=== PATIENT | female | born 1990 | race African-American/Black ===

== ENCOUNTER 2018-12-29 18:31 | Inpatient (IN) | payer SELFPAY ==
[~2018-12-29] VITALS: Ht 167.6 cm; Wt 57.2 kg
[2018-12-29 18:55] VITALS: BP 118/78
--- NOTE | 2018-12-29 18:58 | NUR ---
ED Nurse Note: pt walked in to ER from home due to abdominal pain. no N/V/D at this moment but pt reported previous episode of vomiting at home with yellow bile. calm and cooperative but grimacing for pain. no acute distress noted at this time. 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 pt was able to ambulate to bathroom with steady gait to provide urine. tachcardia reported to [facility]PA.
[2018-12-29] MEDS ORDERED: Morphine Sulfate 4mg/ml Inj (IV USE ONLY) IVP ONE (19:00)
--- NOTE | 2018-12-29 19:02 | Emergency Room Report ---
History of Present Illness General Chief Complaint: Abdominal Pain Source: Patient (Alessandra Tolbert) Present Illness HPI 28-year-old female presents to the emergency department complaining of progressive abdominal pain x1 week. Patient reports lower middle abdominal pain and tenderness which over time began progressing up towards the flank area bilaterally. Patient reports multiple episodes of nausea vomiting. Patient denies fevers or chills. She denies significant past medical history. She reports some recent heavy alcohol use especially since Halloween. She denies vaginal bleeding or vaginal discharge. Patient denies dysuria she does report urinary frequency and urgency. Patient reports when she attempts to urinate she begins having exacerbation of her lower abdominal pain. Patient also reports constipation and states that her last real bowel movement was approximately 1 week ago. She denies blood in the vomit or stool she denies black tarry stools or significant NSAID use recently. She denies low back pain. No other aggravating or relieving factors at this time. (Alessandra Tolbert) Allergies: Coded Allergies: No Known Allergies (Unverified , 12/29/18) Patient History Past Medical History: see triage record Past Surgical History: none Pertinent Family History: none Social History: Reports: alcohol use Last Menstrual Period: 12/09/18 Now: No Reviewed Nursing Documentation: PMH: Agreed; PSxH: Agreed (Alessandra Tolbert) Nursing Documentation-PMH Past Medical History: No Stated History (Alessandra Tolbert) Review of Systems All Other Systems: negative except mentioned in HPI (Alessandra Tolbert) Physical Exam Vital Signs Date Time Temp Pulse Resp B/P (MAP) Pulse Ox O2 Delivery O2 Flow Rate FiO2 12/29/18 18:38 99.1 150 22 118/78 (91) 98 Room Air Sp02 EP Interpretation: reviewed, normal General Appearance: alert, GCS 15, non-toxic, moderate distress Head: normocephalic, atraumatic Eyes: bilateral eye normal inspection, bilateral eye PERRL ENT: hearing grossly normal, normal voice Neck: full range of motion Respiratory: lungs clear, normal breath sounds, speaking full sentences Cardiovascular #1: regular rate, rhythm Gastrointestinal: soft, guarding, rebound, tenderness - Generalized TTP, moderate in the RLQ. Rectal: deferred Genitourinary: normal inspection, no CVA tenderness Musculoskeletal: gait/station normal, normal range of motion, non-tender Neurologic: alert, oriented x3, responsive, motor strength/tone normal, sensory intact, speech normal, grossly normal Psychiatric: judgement/insight normal Lymphatic: no adenopathy (Alessandra Tolbert) Medical Decision Making PA Attestation Dr. Bunn is my supervising Physician whom patient management has been discussed with. (Alessandra Tolbert) PA Attestation I supervised and participated in the care of this patient along with ALEJANDRA Abarca Briefly, this is a 28-year-old female presenting for evaluation of abdominal pain. She does have moderate alcohol use in her medical history and states she was drinking several days ago. Labs are consistent with acute pancreatitis in addition to acute kidney injury secondary dehydration and hypokalemia likely from vomiting. Also appears she has a acute urinary tract infection. She continues to receive IV fluids and received Zosyn. CT scan of the abdomen consistent with pancreatitis and probable gallstones however these were not visualized on ultrasound. Her pain is improving and her vital signs are stable although she remains tachycardic. She is receiving potassium. She will be admitted to telemetry for further management of GENARO, hypokalemia, pancreatitis, urinary tract infection. (Valdo Bunn MD) Diagnostic Impression: Primary Impression: Pancreatitis Qualified Codes: K85.90 - Acute pancreatitis without necrosis or infection, unspecified Additional Impressions: Acute hypokalemia UTI (urinary tract infection) Qualified Codes: N30.00 - Acute cystitis without hematuria GENARO (acute kidney injury) ER Course 28-year-old female presents to the emergency department complaining of progressive abdominal pain x1 week. Patient reports lower middle abdominal pain and tenderness which over time began progressing up towards the flank area bilaterally. Patient reports multiple episodes of nausea vomiting. Patient denies fevers or chills. She denies significant past medical history. She reports some recent heavy alcohol use especially since . She denies vaginal bleeding or vaginal discharge. Patient denies dysuria she does report urinary frequency and urgency. Patient reports when she attempts to urinate she begins having exacerbation of her lower abdominal pain. Patient also reports constipation and states that her last real bowel movement was approximately 1 week ago. She denies blood in the vomit or stool she denies black tarry stools or significant NSAID use recently. She denies low back pain. No other aggravating or relieving factors at this time. Ddx considered but are not limited to Acute appendicitis, Diverticulitis, SBO, diarrhea, Perforation, UC, PUD, GE, pancreatitis, gallstone, ovarian torsion, ectopic , PID tubo-ovarian abscess. Vital signs: Pt. is tachycardic on arrival, remaining VS are WNL, pt. is afebrile H&PE are most consistent with Possible acute abdomen. ORDERS: -CBC: leukocytosis (16.5) - CMP: Potassium of (2.5), Cr. (1.7). BUN (19). - LIPASE: (greater than 2000) -Lactic Acid: 1.2 WNL -UA: Nitrite positive and significant elevation in inflammatory markers with moderate bacteria. -URINE HCG: Negative -Coags: WNL -ABO/Screen: Pending -CT Abd & Pelvis Non-Con: "Peripancreatic inflammatory change concerning for acute pancreatitis. Hepatic steatosis. Indeterminate 4.2 cm right adnexal cystic structure. Small amount of abdominal ascites. No free air. Probable gallstones. 5 cm nodule anterior to the spleen possible splenule. No bowel obstruction or diverticulitis." Per official radiology report- Please see report for specific details. -Abdominal US :See report below. ED INTERVENTIONS: -IV bolus NS -Morphine 4mg -Zofran 4mg IV -KCL IV -3.375gm Zosyn IV DISPOSITION: at this time pt. will be admitted to Dr. Luna for acute alcoholic pancreatitis and UTI Dr. Luna agreed to admit the pt. and to continue pt. care management. Labs Test 12/29/18 19:00 12/29/18 19:06 12/29/18 20:30 Urine Color Brown Urine Appearance Turbid Urine pH 5 (4.5-8.0) Urine Specific [place] 1.020 (1.005-1.035) Urine Protein 3+ (NEGATIVE) Urine Glucose (UA) 1+ (NEGATIVE) Urine Ketones 2+ (NEGATIVE) Urine Blood 2+ (NEGATIVE) Urine Nitrite Positive (NEGATIVE) Urine Bilirubin 2+ (NEGATIVE) Urine Ictotest Positive (NEGATIVE) Urine Urobilinogen 8 MG/DL (0.0-1.0) Urine Leukocyte Esterase 3+ (NEGATIVE) Urine RBC 10-15 /HPF (0 - 2) Urine WBC Tntc /HPF (0 - 2) Urine Squamous Epithelial Cells Many /LPF (NONE/OCC) Urine Bacteria Many /HPF (NONE) Urine HCG, Qualitative Negative (NEGATIVE) White Blood Count 16.5 K/UL (4.8-10.8) Red Blood Count 4.05 M/UL (4.20-5.40) Hemoglobin 9.8 G/DL (12.0-16.0) Hematocrit 31.7 % (37.0-47.0) Mean Corpuscular Volume 78 FL (80-99) Mean Corpuscular Hemoglobin 24.3 PG (27.0-31.0) Mean Corpuscular Hemoglobin Concent 31.1 G/DL (32.0-36.0) Red Cell Distribution Width 18.3 % (11.6-14.8) Platelet Count 275 K/UL (150-450) Mean Platelet Volume 8.5 FL (6.5-10.1) Neutrophils (%) (Auto) 75.1 % (45.0-75.0) Lymphocytes (%) (Auto) 8.8 % (20.0-45.0) Monocytes (%) (Auto) 13.5 % (1.0-10.0) Eosinophils (%) (Auto) 2.0 % (0.0-3.0) Basophils (%) (Auto) 0.6 % (0.0-2.0) Prothrombin Time 12.0 SEC (9.30-11.50) Prothromb Time International Ratio 1.1 (0.9-1.1) Activated Partial Thromboplast Time 27 SEC (23-33) Sodium Level 131 MMOL/L (136-145) Potassium Level 2.5 MMOL/L (3.5-5.1) Chloride Level 92 MMOL/L (98-107) Carbon Dioxide Level 28 MMOL/L (21-32) Anion Gap 12 mmol/L (5-15) Blood Urea Nitrogen 19 mg/dL (7-18) Creatinine 1.7 MG/DL (0.55-1.30) Estimat Glomerular Filtration Rate 43.8 mL/min (>60) Glucose Level 116 MG/DL (74-106) Calcium Level 9.5 MG/DL (8.5-10.1) Total Bilirubin 2.1 MG/DL (0.2-1.0) Direct Bilirubin 1.2 MG/DL (0.0-0.3) Aspartate Amino Transf (AST/SGOT) 92 U/L (15-37) Alanine Aminotransferase (ALT/SGPT) 57 U/L (12-78) Alkaline Phosphatase 135 U/L (46-116) Total Protein 8.6 G/DL (6.4-8.2) Albumin 3.9 G/DL (3.4-5.0) Globulin 4.7 g/dL Albumin/Globulin Ratio 0.8 (1.0-2.7) Lipase > 2000 U/L (73-393) Lactic Acid Level 1.20 mmol/L (0.4-2.0) (Alessandra Tolbert) EKG Diagnostic Results EP Interpretation: Dr. bunn Rate: tachycardiac - 101 bpm Rhythm: NSR ST Segments: no acute changes ASA given to the pt in ED: No PA Scribe Text This Interpretation was scribed by ALEJANDRA Tolbert. (Alessandra Tolbert) Chest X-Ray Diagnostic Results Chest X-Ray Diagnostic Results : Chest X-Ray Ordered: Yes # of Views/Limited/Complete: 1 View Indication: Chest Pain EP Interpretation: Yes PA Xray: Interpretation reviewed, by supervising MD, and agrees with findings. Interpretation: no consolidation, no effusion, no pneumothorax, no acute cardiopulmonary disease, other - no evidence of free air under the diaphragm Impression: No acute disease Electronically Signed by: Alessandra Tolbert PA-C (Alessandra Tolbert) CT/MRI/US Diagnostic Results CT/MRI/US Diagnostic Results #1: Imaging Test Ordered: CT Abdomen and Pelvis w/o contrast Impression "Peripancreatic inflammatory change concerning for acute pancreatitis. Hepatic steatosis. Indeterminate 4.2 cm right adnexal cystic structure. Small amount of abdominal ascites. No free air. Probable gallstones. 5 cm nodule anterior to the spleen possible splenule. No bowel obstruction or diverticulitis." Per official radiology report- Please see report for specific details. CT/MRI/US Diagnostic Results #2: Imaging Test Ordered: Abdominal US Impression -"Small shadowing gallstones. No gallbladder wall thickening, pericholecystic fluid, or biliary dilatation. Sonographic Rodriguez sign is negative. Hepatic steatosis. Probable small splenule. Kidneys are unremarkable. No free fluid." Per official radiology report- Please see report for specific details. (Alessandra Tolbert) Last Vital Signs Date Time Temp Pulse Resp B/P (MAP) Pulse Ox O2 Delivery O2 Flow Rate FiO2 12/29/18 18:55 150 22 Room Air 12/29/18 18:55 99.1 118/78 98 (Alessandra Tolbert) Disposition: ADMITTED INPATIENT Condition: Serious Alessandra Tolbert Dec 29, 2018 19:02 Valdo Bunn MD Dec 29, 2018 23:05
[2018-12-29 19:13] VITALS: BP 123/78
--- NOTE | 2018-12-29 19:13 | NUR ---
ED Nurse Note: received patient from dani larsen rn. patient resting comfortably. hr tachy but asymptomatic. patient calm and cooperatived. medicated; tolerated well. will continue to monitor.
--- NOTE | 2018-12-29 19:13 | NUR ---
HAND-OFF: Report given to Chris Gonzlaez RN. blood and urine collected and sent to lab. medications need to be given.
[2018-12-29 19:42] LABS: APPEARANCE,URINE TURBID; BILIRUBIN, URINE 2+ (NEGATIVE); COLOR,URINE BROWN; GLUCOSE, URINE (UA) 1+ (NEGATIVE); KETONES,URINE 2+ (NEGATIVE); LEUKOCYTE ESTERASE ,URINE 3+ (NEGATIVE); NITRITE,URINE POSITIVE (NEGATIVE); PH,URINE 5 (4.5-8.0); PROTEIN,URINE 3+ (NEGATIVE); UROBILINOGEN,URINE 8 MG/DL (0.0-1.0)
[2018-12-29 19:49] LABS: BASOPHILS % (AUTO) 0.6 % (0.0-2.0); HEMATOCRIT 31.7 % (37.0-47.0); HEMOGLOBIN 9.8 G/DL (12.0-16.0); LYMPHOCYTES % (AUTO) 8.8 % (20.0-45.0); MEAN CORPUSCULAR VOLUME 78 FL (80-99); MONOCYTES % (AUTO) 13.5 % (1.0-10.0); NEUTROPHILS % (AUTO) 75.1 % (45.0-75.0); PLATELET COUNT 275 K/UL (150-450); RED BLOOD COUNT 4.05 M/UL (4.20-5.40); RED CELL DISTRIBUTION WIDTH 18.3 % (11.6-14.8); WHITE BLOOD COUNT 16.5 K/UL (4.8-10.8)
[2018-12-29 19:50] LABS: INR 1.1 (0.9-1.1)
[2018-12-29 19:58] LABS: ALANINE AMINOTRANSFERASE 57 U/L (12-78); ALBUMIN 3.9 G/DL (3.4-5.0); ALBUMIN/GLOBULIN RATIO 0.8 (1.0-2.7); ALKALINE PHOSPHATASE 135 U/L (46-116); ANION GAP 12 mmol/L (5-15); ASPARTATE AMINO TRANSFERASE 92 U/L (15-37); BILIRUBIN,TOTAL 2.1 MG/DL (0.2-1.0); BLOOD UREA NITROGEN 19 mg/dL (7-18); CALCIUM 9.5 MG/DL (8.5-10.1); CARBON DIOXIDE 28 MMOL/L (21-32); CHLORIDE 92 MMOL/L (98-107); CREATININE 1.7 MG/DL (0.55-1.30); SODIUM 131 MMOL/L (136-145)
[2018-12-29] MEDS ORDERED: Piperacillin/Tazobactam 3.375 GM in NS 110 ML IVPB ONE (20:00)
[2018-12-29 20:27] LABS: POTASSIUM 2.5 MMOL/L (3.5-5.1)
[2018-12-29 21:00] VITALS: BP 132/78
--- NOTE | 2018-12-29 21:00 | NUR ---
ED Nurse Note: belongings completed with patient.
--- NOTE | 2018-12-29 21:13 | Diagnostic Imaging Report ---
Indication: Abdominal pain, previous episode of vomiting Technique: Spiral acquisitions obtained through the abdomen and pelvis. No oral contrast utilized, per emergency room physician request No IV contrast utilized, per emergency room physician request.. Multiplanar reconstructions were generated. Total dose length product 695 mGycm. CTDIvol(s) 12 mGy. Dose reduction achieved using automated exposure control Comparison: None Findings: Inflammatory stranding of the upper mesenteric root is noted. There is fluid/thickening tracking along Gerota's fascia on the left, and there is some fluid within the pelvis. Most of the stranding is adjacent to the pancreas, although the pancreas itself does not appear particularly enlarged. The distal esophagus, stomach, duodenum are unremarkable. The appendix is normal in caliber, does contain a small appendicolith at the tip. No evidence of diverticulosis or diverticulitis. No small bowel distention. No free intraperitoneal gas is demonstrated. Lack of IV contrast limits assessment of the solid organs. The liver is enlarged, diffusely hypoattenuating. No focal abnormality. The gallbladder, bile ducts are unremarkable. There is a very large accessory splenule, which measures approximately 5 cm in diameter. The kidneys are unremarkable. No renal or ureteral calculi, hydronephrosis, or hydroureter. There is a 3.8 cm cyst in the right ovary. Left ovary is unremarkable. The uterus is unremarkable. The included lung bases are clear. The bones are unremarkable. Impression: Inflammatory stranding of the peripancreatic mesenteric root with phlegmon tracking along Gerota's fascia on the left and fluid within the pelvis. Findings are concerning for acute pancreatitis. Enlarged fatty liver 3.8 cm right ovarian cyst, almost certainly benign. Large accessory splenule This agrees with the preliminary interpretation provided overnight by [facility] teleradiology service. The CT scanner at [facility] is accredited by the [employer] and the scans are performed using protocols designed to limit radiation exposure to as low as reasonably achievable to attain images of sufficient resolution adequate for diagnostic evaluation.
[2018-12-29 21:40] LABS: BILIRUBIN,DIRECT 1.2 MG/DL (0.0-0.3)
[2018-12-29 23:00] VITALS: BP 124/84
--- NOTE | 2018-12-29 23:15 | NUR ---
ED Nurse Note: REPORT GIVEN TO GEORGE CAMPOS FROM TELE.
--- NOTE | 2018-12-29 23:26 | Diagnostic Imaging Report ---
Indication: Abdominal pain, pancreatitis, gallstones suspected on preliminary report of prior CT scan Technique: Toro-scale and duplex images of the upper abdomen were obtained Comparison: Findings: Gallbladder is unremarkable, without stones, wall thickening, nor pericholecystic fluid. Sonographic Rodriguez's sign is negative. Common bile duct measures mm in diameter. No intrahepatic biliary ductal dilatation. Liver demonstrates increased echogenicity, consistent with fatty changes reported on recent CT scan Portal vein and hepatic veins are patent. Pancreas is hypoechoic, particularly on repeat scanning. Spleen is unremarkable although it does demonstrate a very large accessory splenule which measures 5.2 cm long axis dimension.. Left kidney measures 10.3 cm in length. Right kidney measures 10.9 cm length. Both kidneys demonstrate normal echogenicity. There is no hydronephrosis. No focal abnormality . Non-aneurysmal abdominal aorta . Impression: Negative for gallstones. Note that this is a discrepancy from the [facility] preliminary report which reports gallstones. Discrepancy reported to Dr. De Souza at the time of interpretation Negative for dilated bile ducts Large accessory splenule Fatty liver, also previously reported Apparent hypoechoic pancreas. This may in part be artifactual due to the very echogenic adjacent liver, but could also indicate acute pancreatitis changes as reported on prior CT
[2018-12-30] VITALS: BP 107/64
[2018-12-30] MEDS ORDERED: 1/2NS w/KCl 20mEq 1000ml 1,000 ML IV SCH (00:15)
[2018-12-30] MEDS ORDERED: Morphine Sulfate 2mg/ml Inj(IV/IM USE ONLY) IVP PRN ×2 (00:15→04:15)
[2018-12-30 04:00] VITALS: BP 110/66
--- NOTE | 2018-12-30 07:05 | NUR ---
NURSE NOTES: Received report from Jayson/RN, Patient is asleep, Lying semi-toledo's, resting comfortably. Able to make needs known. Denies pain at this time. IV site patent, no bleeding or infiltration noted. Encouraged to use call light when needed. Bed in lowest position and locked, Bed alarm engaged, Side-rails up x3. Call light within reach. Will continue plan of care.
[2018-12-30 07:43] LABS: BASOPHILS % (AUTO) 0.7 % (0.0-2.0); HEMATOCRIT 27.2 % (37.0-47.0); HEMOGLOBIN 8.2 G/DL (12.0-16.0); LYMPHOCYTES % (AUTO) 13.6 % (20.0-45.0); MEAN CORPUSCULAR VOLUME 79 FL (80-99); MONOCYTES % (AUTO) 18.3 % (1.0-10.0); NEUTROPHILS % (AUTO) 61.4 % (45.0-75.0); PLATELET COUNT 251 K/UL (150-450); RED BLOOD COUNT 3.43 M/UL (4.20-5.40); RED CELL DISTRIBUTION WIDTH 20.6 % (11.6-14.8); WHITE BLOOD COUNT 13.4 K/UL (4.8-10.8)
[2018-12-30 07:56] LABS: ALANINE AMINOTRANSFERASE 49 U/L (12-78); ALBUMIN/GLOBULIN RATIO 0.8 (1.0-2.7); ALKALINE PHOSPHATASE 106 U/L (46-116); ANION GAP 13 mmol/L (5-15); ASPARTATE AMINO TRANSFERASE 83 U/L (15-37); BILIRUBIN,TOTAL 1.6 MG/DL (0.2-1.0); BLOOD UREA NITROGEN 20 mg/dL (7-18); CALCIUM 8.6 MG/DL (8.5-10.1); CARBON DIOXIDE 28 MMOL/L (21-32); CHLORIDE 98 MMOL/L (98-107); CREATININE 1.3 MG/DL (0.55-1.30); SODIUM 138 MMOL/L (136-145)
[2018-12-30 07:59] LABS: POTASSIUM 2.7 MMOL/L (3.5-5.1)
[2018-12-30 08:00] VITALS: BP 94/62
[2018-12-30 08:00] LABS: BILIRUBIN,DIRECT 0.9 MG/DL (0.0-0.3)
[2018-12-30] MEDS: Piperacillin/Tazobactam 3.375 GM in NS 110 ML IVPB SCH ×2 (08:29→21:51)
--- NOTE | 2018-12-30 09:32 | Consultation ---
Consult Note Consult Note asked to lashawn at the request of Dr De Souza 28-year-old female presents to the emergency department complaining of progressive abdominal pain x1 week. Patient reports lower middle abdominal pain and tenderness which over time began progressing up towards the flank area bilaterally. Patient reports multiple episodes of nausea vomiting. Patient denies fevers or chills. She denies significant past medical history. She denies heavy alcohol use. She denies vaginal bleeding or vaginal discharge. Patient denies dysuria she does report urinary frequency and urgency. Patient reports when she attempts to urinate she begins having exacerbation of her lower abdominal pain. Patient also reports constipation and states that her last real bowel movement was approximately 1 week ago. She denies blood in the vomit or stool she denies black tarry stools or significant NSAID use recently. She denies low back pain. No other aggravating or relieving factors at this time No Known Allergies (Unverified , 12/29/18) ETOH abuse Interviewed examined data reviewed Assessment/Plan Pancreatitis GENARO , presents with Cr of 1.7 HypoKalemia Electrolyte imbalance Anemia UTI Pancreatitis ETOH Abuse NPO Hydrate IV KCL IV Thiamine Anemia piña GI Fermin Nayak MD Dec 30, 2018 09:31
--- NOTE | 2018-12-30 09:47 | Diagnostic Imaging Report ---
Indication: Chest pain Technique: One view of the chest Comparison: none Findings: Lungs and pleural spaces are clear. Heart size is normal. Impression: No acute process
[2018-12-30] MEDS: Pantoprazole Inj IVP SCH ×2 (09:59→21:51)
[2018-12-30] MEDS: D5NS 1,000 ML IV SCH ×2 (09:59→21:51)
[2018-12-30 10:17] LABS: FERRITIN 36 NG/ML (8-388)
[2018-12-30 10:33] LABS: % IRON SATURATION 4 % (15-50); IRON 14 ug/dL (50-175); TOTAL IRON BINDING CAPACITY 327 ug/dL (250-450)
[2018-12-30 12:00] VITALS: BP 96/63
[2018-12-30] MEDS: Thiamine HCl 100 MG in D5W 55 ML IVPB SCH (12:41)
--- NOTE | 2018-12-30 15:15 | NUR ---
CASE MANAGEMENT:REVIEW 28 YR OLD FEMALE PRESENTED TO ER CC; ABDOMINAL PAIN X 1 WEEK. VOMITING SI: HYPOKALEMIA. PANCREATITIS 99.1 150 22 118/78 98% ON RA WBC+16.5 K-2.5 LIPASE>2000 IS: IV ZOFRAN IV MORPHINE 1L NS BOLUS IV ZOSYN IV KCL CT ABD ABD US CXR : TO TELEMETRY UNIT
--- NOTE | 2018-12-30 15:56 | Cardiology Report ---
APPROVED REPORT EKG Measurement Heart [id number] Sinus tachycardia Otherwise normal ECG
[2018-12-30 16:00] VITALS: BP 124/76
--- NOTE | 2018-12-30 16:52 | Consultation ---
History of Present Illness General Date patient seen: Dec 30, 2018 Reason for Hospitalization: Abdominal Pain Present Illness HPI This is a very pleasant 28-year-old female with no significant past medical history who presented to the emergency department at [facility] complaining of worsening epigastric abdominal pain. Patient states pain began initially the day after Halloween on Friday and has persisted since. Pain did not improve and she decided to come in for evaluation. No nausea or vomiting. No fever chills. Passing flatus. Has not had a bowel movement in 3 days. Pain 8 out of 10 cramping epigastric pain and some lower abdominal pain as well. No radiation to the back. In emergency department noted to have a leukocytosis and elevated lipase and abnormal labs. Initial ultrasound with question of cholelithiasis. Surgery called to evaluate and assist with care. Patient seen, patient [place], chart reviewed. Patient states pain is improved now and is just a dull ache remnant of the prior pain. She is hungry. Allergies: Coded Allergies: No Known Allergies (Unverified , 12/29/18) Patient History History Provided By: Patient Healthcare decision maker Resuscitation status Full Code Advanced Directive on File Past Medical/Surgical History Past Medical/Surgical History: (1) Abdominal pain (2) Pancreatitis (3) UTI (urinary tract infection) (4) Acute hypokalemia (5) GENARO (acute kidney injury) Review of Systems Review of Symptoms General ROS: no weight loss or fever Psychological ROS: no depression or mood changes, no memory loss Ophthalmic ROS: no visual changes or eye irritation ENT ROS: no nasal congestion, hearing loss, dizziness Allergy and Immunology ROS: no allergic symptoms or urticaria Hematological and Lymphatic ROS: no swollen glands, unusual bleeding or bruising Endocrine ROS: no polyuria, polydipsia, weight changes, temperature intolerance Respiratory ROS: no cough, shortness of breath, or wheezing Cardiovascular ROS: no chest pain or dyspnea on exertion Gastrointestinal ROS: denies abdominal pain, bright red blood in stool. Musculoskeletal ROS: no myalgias or arthralgias Neurological ROS: no TIA or stroke symptoms Dermatological ROS: no new or changing skin lesions, rashes or pruritis Physical Exam Physical Exam General appearance: alert, cooperative, no distress, appears stated age Head: Normocephalic, without obvious abnormality, atraumatic Eyes: conjunctivae/corneas clear. PERRL, EOM's intact. Fundi benign Throat: Lips, mucosa, and tongue normal. Teeth and gums normal Neck: supple, symmetrical, trachea midline, no adenopathy, thyroid: not enlarged, symmetric, no tenderness/mass/nodules, no carotid bruit and no JVD Lungs: clear to auscultation bilaterally Heart: regular rate and rhythm, S1, S2 normal, no murmur, click, rub or gallop Abdomen: soft, non-tender. Bowel sounds normal. No masses, no organomegaly Extremities: extremities normal, atraumatic, no cyanosis or edema Pulses: 2+ and symmetric Skin: Skin color, texture, turgor normal. No rashes or lesions Neurologic: Grossly normal Last 24 Hour Vital Signs Date Time Temp Pulse Resp B/P (MAP) Pulse Ox O2 Delivery O2 Flow Rate FiO2 12/30/18 12:00 98.1 98 20 96/63 (74) 99 12/30/18 12:00 93 12/30/18 09:00 Room Air 12/30/18 08:00 99.0 106 18 94/62 (73) 100 12/30/18 08:00 97 12/30/18 04:00 98.9 110 18 110/66 (81) 100 12/30/18 04:00 97 12/30/18 00:00 99.0 116 20 107/64 (78) 100 12/30/18 00:00 112 12/29/18 23:58 Room Air 12/29/18 23:10 99.1 106 20 124/84 98 Room Air 12/29/18 23:00 99.1 106 20 124/84 98 Room Air 12/29/18 21:00 99.1 105 20 132/78 98 Room Air 12/29/18 19:47 99.1 12/29/18 19:13 99.1 143 22 123/78 98 Room Air 12/29/18 18:55 150 22 Room Air 12/29/18 18:55 99.1 140 22 118/78 98 Room Air 12/29/18 18:38 99.1 150 22 118/78 (91) 98 Room Air Intake and Output 12/29/18 12/30/18 19:00 07:00 Intake Total 0 ml Balance 0 ml Intake Oral 0 ml # Voids 1 2 Laboratory Tests Test 12/29/18 19:00 12/29/18 19:06 12/29/18 20:30 12/30/18 05:36 Urine Color Brown Urine Appearance Turbid Urine pH 5 (4.5-8.0) Urine Specific [place] 1.020 (1.005-1.035) Urine Protein 3+ (NEGATIVE) H Urine Glucose (UA) 1+ (NEGATIVE) H Urine Ketones 2+ (NEGATIVE) H Urine Blood 2+ (NEGATIVE) H Urine Nitrite Positive (NEGATIVE) H Urine Bilirubin 2+ (NEGATIVE) H Urine Ictotest Positive (NEGATIVE) Urine Urobilinogen 8 MG/DL (0.0-1.0) H Urine Leukocyte Esterase 3+ (NEGATIVE) H Urine RBC 10-15 /HPF (0 - 2) H Urine WBC Tntc /HPF (0 - 2) H Urine Squamous Epithelial Cells Many /LPF (NONE/OCC) H Urine Bacteria Many /HPF (NONE) H Urine HCG, Qualitative Negative (NEGATIVE) White Blood Count 16.5 K/UL (4.8-10.8) H 13.4 K/UL (4.8-10.8) H Red Blood Count 4.05 M/UL (4.20-5.40) L 3.43 M/UL (4.20-5.40) L Hemoglobin 9.8 G/DL (12.0-16.0) L 8.2 G/DL (12.0-16.0) L Hematocrit 31.7 % (37.0-47.0) L 27.2 % (37.0-47.0) L Mean Corpuscular Volume 78 FL (80-99) L 79 FL (80-99) L Mean Corpuscular Hemoglobin 24.3 PG (27.0-31.0) L 24.0 PG (27.0-31.0) L Mean Corpuscular Hemoglobin Concent 31.1 G/DL (32.0-36.0) L 30.3 G/DL (32.0-36.0) L Red Cell Distribution Width 18.3 % (11.6-14.8) H 20.6 % (11.6-14.8) H Platelet Count 275 K/UL (150-450) 251 K/UL (150-450) Mean Platelet Volume 8.5 FL (6.5-10.1) 7.6 FL (6.5-10.1) Neutrophils (%) (Auto) 75.1 % (45.0-75.0) H 61.4 % (45.0-75.0) Lymphocytes (%) (Auto) 8.8 % (20.0-45.0) L 13.6 % (20.0-45.0) L Monocytes (%) (Auto) 13.5 % (1.0-10.0) H 18.3 % (1.0-10.0) H Eosinophils (%) (Auto) 2.0 % (0.0-3.0) 6.0 % (0.0-3.0) H Basophils (%) (Auto) 0.6 % (0.0-2.0) 0.7 % (0.0-2.0) Prothrombin Time 12.0 SEC (9.30-11.50) H Prothromb Time International Ratio 1.1 (0.9-1.1) Activated Partial Thromboplast Time 27 SEC (23-33) Sodium Level 131 MMOL/L (136-145) L 138 MMOL/L (136-145) Potassium Level 2.5 MMOL/L (3.5-5.1) *L 2.7 MMOL/L (3.5-5.1) *L Chloride Level 92 MMOL/L (98-107) L 98 MMOL/L (98-107) Carbon Dioxide Level 28 MMOL/L (21-32) 28 MMOL/L (21-32) Anion Gap 12 mmol/L (5-15) 13 mmol/L (5-15) Blood Urea Nitrogen 19 mg/dL (7-18) H 20 mg/dL (7-18) H Creatinine 1.7 MG/DL (0.55-1.30) H 1.3 MG/DL (0.55-1.30) Estimat Glomerular Filtration Rate 43.8 mL/min (>60) 59.5 mL/min (>60) Glucose Level 116 MG/DL (74-106) H 78 MG/DL (74-106) Calcium Level 9.5 MG/DL (8.5-10.1) 8.6 MG/DL (8.5-10.1) Total Bilirubin 2.1 MG/DL (0.2-1.0) H 1.6 MG/DL (0.2-1.0) H Direct Bilirubin 1.2 MG/DL (0.0-0.3) H 0.9 MG/DL (0.0-0.3) H Aspartate Amino Transf (AST/SGOT) 92 U/L (15-37) H 83 U/L (15-37) H Alanine Aminotransferase (ALT/SGPT) 57 U/L (12-78) 49 U/L (12-78) Alkaline Phosphatase 135 U/L (46-116) H 106 U/L (46-116) Total Protein 8.6 G/DL (6.4-8.2) H 7.0 G/DL (6.4-8.2) Albumin 3.9 G/DL (3.4-5.0) 3.0 G/DL (3.4-5.0) L Globulin 4.7 g/dL 4.0 g/dL Albumin/Globulin Ratio 0.8 (1.0-2.7) L 0.8 (1.0-2.7) L Lipase > 2000 U/L (73-393) H Lactic Acid Level 1.20 mmol/L (0.4-2.0) Differential Total Cells Counted 100 Neutrophils % (Manual) 65 % (45-75) Lymphocytes % (Manual) 17 % (20-45) L Monocytes % (Manual) 15 % (1-10) H Eosinophils % (Manual) 3 % (0-3) Basophils % (Manual) 0 % (0-2) Band Neutrophils 0 % (0-8) Platelet Estimate Adequate Platelet Morphology Normal Anisocytosis 1+ Iron Level 14 ug/dL (50-175) L Total Iron Binding Capacity 327 ug/dL (250-450) Percent Iron Saturation 4 % (15-50) L Unsaturated Iron Binding 313 ug/dL (112-346) Ferritin 36 NG/ML (8-388) Vitamin B12 Level 578 PG/ML (193-986) Folate 9.1 NG/ML (8.6-58.9) Microbiology Date/Time Source Procedure Growth Status 12/29/18 19:00 Urine,Clean Catch Urine Culture - Preliminary NO GROWTH Resulted Height (Feet): 5 Height (Inches): 6.00 Weight (Pounds): 126 Medications Current Medications Medications (Trade) Dose Ordered Sig/Bartolo Route PRN Reason Start Time Stop Time Status Last Admin Dose Admin Dextrose/Sodium Chloride 1,000 ml @ 75 mls/hr [id number] IV 12/30/18 08:30 01/29/19 08:29 12/30/18 09:59 Folic Acid (Folate) 3 mg DAILY ORAL 12/30/18 09:45 01/29/19 09:44 12/30/18 09:58 Morphine Sulfate (Morphine Sulfate) 2 mg Q4H PRN IVP Severe Pain (Pain Scale 7-10) 12/30/18 04:15 01/06/19 00:14 Pantoprazole (Protonix) 40 mg EVERY 12 HOURS IVP 12/30/18 09:00 01/29/19 08:59 12/30/18 09:59 Piperacillin Sod/ Tazobactam Sod 3.375 gm/Sodium Chloride 110 ml @ 27.5 mls/hr EVERY 8 HOURS IVPB 12/30/18 09:00 01/04/19 08:59 12/30/18 08:29 Thiamine HCl 100 mg/Dextrose 56 ml @ 112 mls/hr Q24H IVPB 12/30/18 11:00 01/29/19 10:59 12/30/18 12:41 Assessment/Plan Problem List: (1) Abdominal pain Assessment & Plan: 28-year-old female with abdominal pain. Epigastric region clinically correlating to pancreatitis. Ultrasound noted and no stones identified. Examination of the fairly benign. Labs noted. Leukocytosis potentially from UTI versus pancreatitis. No acute surgical intervention planned at this time. Start trial clear liquid diet IV fluids Pain regimen We will monitor abdominal exam Trend labs We will follow with recommendations thank you for allowing me to participate in patient's care ICD Codes: R10.9 - Unspecified abdominal pain SNOMED: 81843912 Qualifiers: Qualified Codes: R10.31 - Right lower quadrant pain (2) Pancreatitis ICD Codes: K85.90 - Acute pancreatitis without necrosis or infection, unspecified SNOMED: 38258544 Qualifiers: Qualified Codes: K85.90 - Acute pancreatitis without necrosis or infection, unspecified Gildardo Wilson Dec 30, 2018 16:52
--- NOTE | 2018-12-30 19:19 | NUR ---
HAND-OFF: Report given to Lisa/RN, Patient is awake, watching TV, In stable codition. Endorsed plan of care.
--- NOTE | 2018-12-30 19:47 | NUR ---
NURSE NOTES: Received patient from GEORGE Monae in stable condition, AOx4, resting in bed , denies pain at this time and wishes to go back to regular diet, IV site on L forearm g22 and right AC g20, asymptomatic, intact, patent, bed low&locked, side rails upx2, call light within reach,will continue to monitor and reassess.
[2018-12-30 20:00] VITALS: BP 120/68
--- NOTE | 2018-12-30 22:30 | Consultation ---
DATE OF CONSULTATION: 12/30/2018 INFECTIOUS DISEASE CONSULTATION CONSULTING PHYSICIAN: Jude Serna M.D. PRIMARY ATTENDING PHYSICIAN: Elton Watson M.D. REASON FOR CONSULT: UTI, sepsis, and pancreatitis. HISTORY OF PRESENT ILLNESS: This is a 28-year-old female admitted last night complaining of abdominal pain for a week, nausea, and vomiting. She had also urinary frequency and urgency, but no dysuria. At the time of admission, had leukocytosis and tachycardia. PAST MEDICAL HISTORY: Had history of anemia in the past, for a while got iron pills. Has also a history of miscarriage. MEDICATIONS: Thiamine, folic acid, Zosyn, Protonix, and morphine sulfate. ALLERGIES: No known drug allergies. SOCIAL HISTORY: Single. Works as a [employer] security. Smokes 1 cigarette a day. Drinks couple of times in a week. Denies drug abuse. REVIEW OF SYSTEMS: The patient feels better today. He has no nausea, no vomiting. Denies any diarrhea. Denies any urinary problem. PHYSICAL EXAMINATION: VITAL SIGNS: Temperature 99, pulse 106, and blood pressure 94/62. GENERAL APPEARANCE: No acute distress. Seems to be thin. HEAD AND NECK: [place] conjunctivae. No oral lesion. HEART: Tachycardic. LUNGS: Clear. ABDOMEN: Soft. Very mild tenderness on deep palpation. EXTREMITIES: She has no edema. LABORATORY AND DIAGNOSTIC DATA: WBC today is 13.4, hemoglobin 8.2, hematocrit 27.2, and platelets is 251,000. Sodium 138, potassium 2.7, chloride 98, bicarbonate 28, BUN 20, and creatinine 1.3. Creatinine at the time of admission was 1.7. Bilirubin at the time of admission was 1.6. Albumin is 3. Urine culture so far no growth. UA showed WBC too numerous to count, bacteria many, nitrite positive. Abdominal ultrasound showed small shadowing gallstone. Rodriguez's sign is negative. Chest x-ray, no acute disease. CT scan of the abdomen and pelvis showed stranding of the peripancreatic mesentery with phlegmon tracking along the Gerota's fascia on the left and fluid in the pelvis, and a large fatty liver. IMPRESSION: Sepsis or systemic inflammatory response syndrome with leukocytosis and tachycardia. The patient has acute pancreatitis, has pyuria. So far, urine culture is negative. She has acute renal failure, hypokalemia, anemia, and fatty liver. RECOMMENDATION: We will continue Zosyn. We will follow up the cultures. At the end of my exam, I thank Dr. Watson for involving me in the care of this patient. Jude Serna M.D. DR: DAMARI JOB#: [id number] CC: TOÑITO
--- NOTE | 2018-12-30 22:50 | General Progress Note ---
Assessment/Plan Assessment/Plan: GI CONSULT ATSP for EtOH pancreatitis Full note dictated / orders written Will follow Thank you Valerie Martin MD Subjective Allergies: Coded Allergies: No Known Allergies (Unverified , 12/29/18) Objective Last 24 Hour Vital Signs Date Time Temp Pulse Resp B/P (MAP) Pulse Ox O2 Delivery O2 Flow Rate FiO2 12/30/18 20:11 97 12/30/18 16:00 97 12/30/18 16:00 98.1 101 18 124/76 (92) 100 12/30/18 12:00 98.1 98 20 96/63 (74) 99 12/30/18 12:00 93 12/30/18 09:00 Room Air 12/30/18 08:00 99.0 106 18 94/62 (73) 100 12/30/18 08:00 97 12/30/18 04:00 98.9 110 18 110/66 (81) 100 12/30/18 04:00 97 12/30/18 00:00 99.0 116 20 107/64 (78) 100 12/30/18 00:00 112 12/29/18 23:58 Room Air 12/29/18 23:10 99.1 106 20 124/84 98 Room Air 12/29/18 23:00 99.1 106 20 124/84 98 Room Air Intake and Output 12/29/18 12/30/18 19:00 07:00 Intake Total 0 ml Balance 0 ml Intake Oral 0 ml # Voids 1 2 Laboratory Tests 12/30/18 05:36: White Blood Count 13.4H, Red Blood Count 3.43L, Hemoglobin 8.2L, Hematocrit 27.2L, Mean Corpuscular Volume 79L, Mean Corpuscular Hemoglobin 24.0L, Mean Corpuscular Hemoglobin Concent 30.3L, Red Cell Distribution Width 20.6H, Platelet Count 251, Mean Platelet Volume 7.6, Neutrophils (%) (Auto) 61.4, Lymphocytes (%) (Auto) 13.6L, Monocytes (%) (Auto) 18.3H, Eosinophils (%) (Auto ) 6.0H, Basophils (%) (Auto) 0.7, Differential Total Cells Counted 100, Neutrophils % (Manual) 65, Lymphocytes % (Manual) 17L, Monocytes % (Manual) 15H , Eosinophils % (Manual) 3, Basophils % (Manual) 0, Band Neutrophils 0, Platelet Estimate Adequate, Platelet Morphology Normal, Anisocytosis 1+, Sodium Level 138, Potassium Level 2.7*L, Chloride Level 98, Carbon Dioxide Level 28, Anion Gap 13, Blood Urea Nitrogen 20H, Creatinine 1.3, Estimat Glomerular Filtration Rate 59.5, Glucose Level 78, Calcium Level 8.6, Iron Level 14L, Total Iron Binding Capacity 327, Percent Iron Saturation 4L, Unsaturated Iron Binding 313, Ferritin 36, Total Bilirubin 1.6H, Direct Bilirubin 0.9H, Aspartate Amino Transf (AST/SGOT) 83H, Alanine Aminotransferase (ALT/SGPT) 49, Alkaline Phosphatase 106, Total Protein 7.0, Albumin 3.0L, Globulin 4.0, Albumin /Globulin Ratio 0.8L, Vitamin B12 Level 578, Folate 9.1 Height (Feet): 5 Height (Inches): 6.00 Weight (Pounds): 126 Valerie Martin MD Dec 30, 2018 22:50
--- NOTE | 2018-12-30 23:13 | Initial Psychiatric Evaluation ---
Psychiatry Consultation Psychiatry Consultation Chief Complaint: Abdominal Pain History of Present Illness: 28-year-old -[place] woman, with hx of alcohol abuse and anxiety admitted for complaints of abdominal pain. The pt pw anxiety, low energy, anhedonia. the pt is not suicidal and homicidal. The pt is not endorsing manic/ psychotic sxs. The pt is not at imminent dst/dto. Allergies: Coded Allergies: No Known Allergies (Unverified , 12/29/18) Patient History History Provided By: Patient, Medical Record, PMD Objective Data Height (Feet): 5 Height (Inches): 6.00 Weight (Pounds): 126 Appearance: well groomed Behavior Mannerisms: good eye contact Affect: blunted Mood: depressed, anxious Speech: clear Thought Process: no abnormalities, goal-directed Perceptual Disturbances: other Suicidal Ideation: not present Assessment/Plan Status: stable, progressing Diagnosis [place] I: Anxiety d/o Alcohol abuse Ativan prn prozac 20mg po qam provided ro/Nacho Ortiz MD Dec 30, 2018 23:13
[2018-12-31 00:14] VITALS: BP 93/66
[2018-12-31 04:09] VITALS: BP 100/63
--- NOTE | 2018-12-31 05:00 | History and Physical Report ---
DATE OF ADMISSION: 12/29/2018 HISTORY OF PRESENT ILLNESS: The patient comes with pancreatitis. Lipase greater than 2000 . Initially, CT showed gallstones, but later final report shows that there are no gallstones. She does drink alcohol, so alcoholism azotemia as well. Also she has what seems to be bad urinary tract infection. Admitted for those reasons. The patient does complain of abdominal pain and constipation for vomiting and abdominal pain for 5 days. The patient has again history of alcoholism. PAST MEDICAL HISTORY: Alcohol abuse and constipation. PAST SURGICAL HISTORY: None. SOCIAL HISTORY: History of alcoholism, history of cigarettes, and history of illegal drugs. ALLERGIES: No known drugs. MEDICATIONS: None. REVIEW OF SYSTEMS: HEENT: Denies headaches. RESPIRATORY: Denies shortness of breath. Denies cough. CARDIOVASCULAR: Denies any chest pain or orthopnea. GASTROINTESTINAL: Reports vomiting, constipation, and abdominal pain for four days. CENTRAL NERVOUS SYSTEM: No significant change in speech pattern. PHYSICAL EXAMINATION: VITAL SIGNS: Temperature is 98.9, pulse is 111, and blood pressure is 110/66. HEENT: PERRLA. NECK: Supple. No lymphadenopathy. CHEST: Clear to auscultation. CARDIOVASCULAR: Regular rate and rhythm. No murmurs or extra sounds. GASTROINTESTINAL: Mild epigastric tenderness. No rebound. No organomegaly. EXTREMITIES: No edema. Moves all four extremities. NEUROLOGIC: Sensory is intact to light touch. Reflexes on both sides. LABORATORY DATA: WBC of 16.5, hemoglobin 9.8, and platelets of 275,000. Sodium 131, potassium 3.5, BUN of 19, creatinine 1.7, and glucose of 116. AST of 92, ALT of 57, total bilirubin 2.1, lipase greater than 2000. Final report says no gallstones on the CT imaging study. ASSESSMENT AND PLAN: 1. Elevated LFTs. 2. Pancreatitis. 3. Electrolyte imbalance. 4. Hypokalemia. 5. UTI. I have basically asked Dr. Martin, Dr. Wilson, Dr. Osorio, Dr. Jude Serna, and Dr. Watson to see the patient for the above-mentioned diagnoses and treatment and to also rule out any history of anxiety. Ali Huong Watson DR: Lory JOB#: [id number] CC:
[2018-12-31] MEDS: Piperacillin/Tazobactam 3.375 GM in NS 110 ML IVPB SCH ×3 (05:34→21:53)
--- NOTE | 2018-12-31 06:00 | Consultation ---
DATE OF CONSULTATION: 12/30/2018 GASTROENTEROLOGY CONSULTATION CONSULTING PHYSICIAN: Valerie Martin M.D. CHIEF COMPLAINT: I was asked to see this patient by Dr. Elton Watson today for evaluation of pancreatitis. HISTORY OF PRESENT ILLNESS: The patient is a 28-year-old -[place] woman, admitted last night for complaints of abdominal pain for about four days or so. this is the first time she has had this problem. She has a history of almost 4 years. This is the first episode of pancreatitis. PAST MEDICAL HISTORY: History of anemia in the past, treated with iron pills, history of miscarriages. MEDICATIONS: See the chart list for details. FAMILY HISTORY: Noncontributory. SOCIAL HISTORY: The patient smokes cigars, drinks alcohol. She is single. She denies drug use. REVIEW OF SYSTEMS: Otherwise negative. PHYSICAL EXAMINATION: GENERAL: Thin -[place] woman, seen in her room. HEENT: Normocephalic and atraumatic. Sclerae anicteric. Oropharynx clear. NECK: Supple. CHEST: Clear to auscultation. CARDIOVASCULAR: Revealed a regular rate. ABDOMEN: Soft with mild epigastric tenderness to palpation. EXTREMITIES: Revealed no edema. LABORATORY AND DIAGNOSTIC DATA: Laboratory data were noted. CT scan was noted. ASSESSMENT: This patient presents with acute pancreatitis, which presumably is alcohol related. The patient will need to be treated with supportive measures including IV fluids and pain control. Laboratory parameters and exam will be followed closely and the courses resolving. The patient was strongly advised to alcohol indefinitely. RECOMMENDATIONS: Per above discussion and per orders written in the chart. Thank you for asking me to participate in the care of this patient. Valerie Martin M.D. DR: Roxana JOB#: [id number] CC:
--- NOTE | 2018-12-31 06:59 | NUR ---
HAND-OFF: Report given to LethaRN, patient stable, plan of care endorsed.
--- NOTE | 2018-12-31 07:05 | NUR ---
NURSE NOTES: Received report from Lisa/RN, Patient is awake, eating breakfast in bed. Able to make needs known. Denies pain at this time. IV site patent, no bleeding or infiltration noted. Encouraged to use call light when needed. Bed in lowest position and locked, Bed alarm engaged, Side-rails up x3. Call light within reach. Will continue plan of care.
[2018-12-31 07:22] LABS: HEMATOCRIT 24.6 % (37.0-47.0); HEMOGLOBIN 7.5 G/DL (12.0-16.0); MEAN CORPUSCULAR VOLUME 79 FL (80-99); PLATELET COUNT 319 K/UL (150-450); RED BLOOD COUNT 3.12 M/UL (4.20-5.40); RED CELL DISTRIBUTION WIDTH 20.3 % (11.6-14.8); WHITE BLOOD COUNT 10.9 K/UL (4.8-10.8)
[2018-12-31 07:53] LABS: ALANINE AMINOTRANSFERASE 98 U/L (12-78); ALBUMIN 2.8 G/DL (3.4-5.0); ALBUMIN/GLOBULIN RATIO 0.7 (1.0-2.7); ALKALINE PHOSPHATASE 130 U/L (46-116); ANION GAP 10 mmol/L (5-15); ASPARTATE AMINO TRANSFERASE 271 U/L (15-37); BILIRUBIN,TOTAL 1.7 MG/DL (0.2-1.0); BLOOD UREA NITROGEN 10 mg/dL (7-18); CALCIUM 8.2 MG/DL (8.5-10.1); CARBON DIOXIDE 23 MMOL/L (21-32); CHLORIDE 103 MMOL/L (98-107); CHOLESTEROL 169 MG/DL (< 200); GAMMA GLUTAMYL TRANSPEPTIDASE 615 U/L (5-85); HDL CHOLESTEROL 20 MG/DL (40-60); PHOSPHORUS 2.2 MG/DL (2.5-4.9); SODIUM 136 MMOL/L (136-145); TRIGLYCERIDES 59 MG/DL (30-150)
[2018-12-31 07:54] LABS: BILIRUBIN,DIRECT 1.1 MG/DL (0.0-0.3)
[2018-12-31 08:00] VITALS: BP 103/70
[2018-12-31] MEDS: Pantoprazole Inj IVP SCH (09:12)
--- NOTE | 2018-12-31 09:48 | Hematology/Onc Progress Note ---
Assessment/Plan Assessment/Plan # Anemia due to underlying iron deficiency -- may be either due to menstruation , unlikely gi bleed, may also due to myelosuppression --> IV iron x 5 days has been started --> peripheral smear reviewed, no schistocytes --> r/o SS disease or thalassemia once discharged as mcv is low and RDW HIGH --> transfuse 1 unit if hgb <7 # Leukocytosis due to pancreatitis and uti --> on ivf and abx as well --> id was consulted, recs --> wbc trend 16-->13-->11 # Abdominal pain. Epigastric region clinically correlating to pancreatitis. --> Ultrasound noted and no stones identified. --> Examination of the fairly benign. Labs noted. --> per surg no intervention --> cleared and IV fluids # Pancreatitis may be due to etoh --> gi following # Dvt ppx ambulation Reviewed with RN and appreciate consultation. Subjective Constitutional: Denies: no symptoms, chills, fever, malaise, weakness, other HEENT: Denies: no symptoms, eye pain, blurred vision, tearing, double vision, ear pain, ear discharge, nose pain, nose congestion, throat pain, throat swelling, mouth pain, mouth swelling, other Cardiovascular: Denies: no symptoms, chest pain, edema, irregular heart rate, lightheadedness, palpitations, syncope, other Respiratory: Denies: no symptoms, cough, shortness of breath, SOB with excertion, SOB at rest, sputum, wheezing, other Gastrointestinal/Abdominal: Denies: no symptoms, abdomen distended, abdominal pain, black stools, tarry stools, blood in stool, constipated, diarrhea, difficulty swallowing, nausea, poor appetite, poor fluid intake, rectal bleeding , vomiting, other Genitourinary: Denies: no symptoms, burning, discharge, frequency, flank pain, hematuria, incontinence, pain, urgency, other Neurologic/Psychiatric: Denies: no symptoms, anxiety, depressed, emotional problems, headache, numbness, paresthesia, pre-existing deficit, seizure, tingling, tremors, weakness, other Allergies: Coded Allergies: No Known Allergies (Unverified , 12/29/18) Subjective 12/31: less abdominal pain, STARTED on iv iron, doing better, on ivf, abx Objective Objective Current Medications Medications (Trade) Dose Ordered Sig/Bartolo Route PRN Reason Start Time Stop Time Status Last Admin Dose Admin Dextrose/Sodium Chloride 1,000 ml @ 75 mls/hr [id number] IV 12/30/18 08:30 01/29/19 08:29 12/30/18 21:51 Folic Acid (Folate) 3 mg DAILY ORAL 12/30/18 09:45 01/29/19 09:44 12/31/18 09:12 Iron Sucrose 200 mg/Sodium Chloride 120 ml @ 240 mls/hr ONCE IV 12/31/18 11:00 12/31/18 13:00 Morphine Sulfate (Morphine Sulfate) 2 mg Q4H PRN IVP Severe Pain (Pain Scale 7-10) 12/30/18 04:15 01/06/19 00:14 Pantoprazole (Protonix) 40 mg EVERY 12 HOURS IVP 12/30/18 09:00 01/29/19 08:59 12/31/18 09:12 Piperacillin Sod/ Tazobactam Sod 3.375 gm/Sodium Chloride 110 ml @ 27.5 mls/hr EVERY 8 HOURS IVPB 12/30/18 09:00 01/04/19 08:59 12/31/18 05:34 Potassium Phosphate 30 mm/ Sodium Chloride 285 ml @ 47.5 mls/hr ONCE IV 12/31/18 10:00 12/31/18 16:00 Potassium Chloride (K-Dur) 40 meq TWICE A DAY ORAL 12/31/18 09:00 01/30/19 08:59 12/31/18 09:13 Thiamine HCl 100 mg/Dextrose 56 ml @ 112 mls/hr Q24H IVPB 12/30/18 11:00 01/29/19 10:59 12/30/18 12:41 Last 24 Hour Vital Signs Date Time Temp Pulse Resp B/P (MAP) Pulse Ox O2 Delivery O2 Flow Rate FiO2 12/31/18 08:00 98.7 84 18 103/70 (81) 96 12/31/18 04:09 98.2 85 18 100/63 (75) 98 12/31/18 04:00 85 12/31/18 00:14 99.1 99 16 93/66 (75) 98 12/31/18 00:00 100 12/30/18 21:00 Room Air 12/30/18 20:11 97 12/30/18 20:00 98.2 92 18 120/68 (85) 100 12/30/18 16:00 97 12/30/18 16:00 98.1 101 18 124/76 (92) 100 12/30/18 12:00 98.1 98 20 96/63 (74) 99 12/30/18 12:00 93 12/30/18 09:00 Room Air 12/30/18 08:00 99.0 106 18 94/62 (73) 100 12/30/18 08:00 97 12/30/18 04:00 98.9 110 18 110/66 (81) 100 12/30/18 04:00 97 12/30/18 00:00 99.0 116 20 107/64 (78) 100 12/30/18 00:00 112 12/29/18 23:58 Room Air 12/29/18 23:10 99.1 106 20 124/84 98 Room Air 12/29/18 23:00 99.1 106 20 124/84 98 Room Air 12/29/18 21:00 99.1 105 20 132/78 98 Room Air 12/29/18 19:47 99.1 12/29/18 19:13 99.1 143 22 123/78 98 Room Air 12/29/18 18:55 150 22 Room Air 12/29/18 18:55 99.1 140 22 118/78 98 Room Air 12/29/18 18:38 99.1 150 22 118/78 (91) 98 Room Air Intake and Output 12/30/18 12/31/18 18:59 06:59 Intake Total 120 ml 150 ml Balance 120 ml 150 ml Intake Oral 120 ml 150 ml # Voids 3 2 Labs Test 12/29/18 19:00 12/29/18 19:06 12/29/18 20:30 12/30/18 05:36 Urine Color Brown Urine Appearance Turbid Urine pH 5 (4.5-8.0) Urine Specific Sentinel 1.020 (1.005-1.035) Urine Protein 3+ (NEGATIVE) Urine Glucose (UA) 1+ (NEGATIVE) Urine Ketones 2+ (NEGATIVE) Urine Blood 2+ (NEGATIVE) Urine Nitrite Positive (NEGATIVE) Urine Bilirubin 2+ (NEGATIVE) Urine Ictotest Positive (NEGATIVE) Urine Urobilinogen 8 MG/DL (0.0-1.0) Urine Leukocyte Esterase 3+ (NEGATIVE) Urine RBC 10-15 /HPF (0 - 2) Urine WBC Tntc /HPF (0 - 2) Urine Squamous Epithelial Cells Many /LPF (NONE/OCC) Urine Bacteria Many /HPF (NONE) Urine HCG, Qualitative Negative (NEGATIVE) White Blood Count 16.5 K/UL (4.8-10.8) 13.4 K/UL (4.8-10.8) Red Blood Count 4.05 M/UL (4.20-5.40) 3.43 M/UL (4.20-5.40) Hemoglobin 9.8 G/DL (12.0-16.0) 8.2 G/DL (12.0-16.0) Hematocrit 31.7 % (37.0-47.0) 27.2 % (37.0-47.0) Mean Corpuscular Volume 78 FL (80-99) 79 FL (80-99) Mean Corpuscular Hemoglobin 24.3 PG (27.0-31.0) 24.0 PG (27.0-31.0) Mean Corpuscular Hemoglobin Concent 31.1 G/DL (32.0-36.0) 30.3 G/DL (32.0-36.0) Red Cell Distribution Width 18.3 % (11.6-14.8) 20.6 % (11.6-14.8) Platelet Count 275 K/UL (150-450) 251 K/UL (150-450) Mean Platelet Volume 8.5 FL (6.5-10.1) 7.6 FL (6.5-10.1) Neutrophils (%) (Auto) 75.1 % (45.0-75.0) 61.4 % (45.0-75.0) Lymphocytes (%) (Auto) 8.8 % (20.0-45.0) 13.6 % (20.0-45.0) Monocytes (%) (Auto) 13.5 % (1.0-10.0) 18.3 % (1.0-10.0) Eosinophils (%) (Auto) 2.0 % (0.0-3.0) 6.0 % (0.0-3.0) Basophils (%) (Auto) 0.6 % (0.0-2.0) 0.7 % (0.0-2.0) Prothrombin Time 12.0 SEC (9.30-11.50) Prothromb Time International Ratio 1.1 (0.9-1.1) Activated Partial Thromboplast Time 27 SEC (23-33) Sodium Level 131 MMOL/L (136-145) 138 MMOL/L (136-145) Potassium Level 2.5 MMOL/L (3.5-5.1) 2.7 MMOL/L (3.5-5.1) Chloride Level 92 MMOL/L (98-107) 98 MMOL/L (98-107) Carbon Dioxide Level 28 MMOL/L (21-32) 28 MMOL/L (21-32) Anion Gap 12 mmol/L (5-15) 13 mmol/L (5-15) Blood Urea Nitrogen 19 mg/dL (7-18) 20 mg/dL (7-18) Creatinine 1.7 MG/DL (0.55-1.30) 1.3 MG/DL (0.55-1.30) Estimat Glomerular Filtration Rate 43.8 mL/min (>60) 59.5 mL/min (>60) Glucose Level 116 MG/DL (74-106) 78 MG/DL (74-106) Calcium Level 9.5 MG/DL (8.5-10.1) 8.6 MG/DL (8.5-10.1) Total Bilirubin 2.1 MG/DL (0.2-1.0) 1.6 MG/DL (0.2-1.0) Direct Bilirubin 1.2 MG/DL (0.0-0.3) 0.9 MG/DL (0.0-0.3) Aspartate Amino Transf (AST/SGOT) 92 U/L (15-37) 83 U/L (15-37) Alanine Aminotransferase (ALT/SGPT) 57 U/L (12-78) 49 U/L (12-78) Alkaline Phosphatase 135 U/L (46-116) 106 U/L (46-116) Total Protein 8.6 G/DL (6.4-8.2) 7.0 G/DL (6.4-8.2) Albumin 3.9 G/DL (3.4-5.0) 3.0 G/DL (3.4-5.0) Globulin 4.7 g/dL 4.0 g/dL Albumin/Globulin Ratio 0.8 (1.0-2.7) 0.8 (1.0-2.7) Lipase > 2000 U/L (73-393) Lactic Acid Level 1.20 mmol/L (0.4-2.0) Differential Total Cells Counted 100 Neutrophils % (Manual) 65 % (45-75) Lymphocytes % (Manual) 17 % (20-45) Monocytes % (Manual) 15 % (1-10) Eosinophils % (Manual) 3 % (0-3) Basophils % (Manual) 0 % (0-2) Band Neutrophils 0 % (0-8) Platelet Estimate Adequate Platelet Morphology Normal Anisocytosis 1+ Iron Level 14 ug/dL (50-175) Total Iron Binding Capacity 327 ug/dL (250-450) Percent Iron Saturation 4 % (15-50) Unsaturated Iron Binding 313 ug/dL (112-346) Ferritin 36 NG/ML (8-388) Vitamin B12 Level 578 PG/ML (193-986) Folate 9.1 NG/ML (8.6-58.9) Test 12/31/18 05:35 White Blood Count 10.9 K/UL (4.8-10.8) Red Blood Count 3.12 M/UL (4.20-5.40) Hemoglobin 7.5 G/DL (12.0-16.0) Hematocrit 24.6 % (37.0-47.0) Mean Corpuscular Volume 79 FL (80-99) Mean Corpuscular Hemoglobin 24.0 PG (27.0-31.0) Mean Corpuscular Hemoglobin Concent 30.5 G/DL (32.0-36.0) Red Cell Distribution Width 20.3 % (11.6-14.8) Platelet Count 319 K/UL (150-450) Mean Platelet Volume 6.9 FL (6.5-10.1) Neutrophils (%) (Auto) % (45.0-75.0) Lymphocytes (%) (Auto) % (20.0-45.0) Monocytes (%) (Auto) % (1.0-10.0) Eosinophils (%) (Auto) % (0.0-3.0) Basophils (%) (Auto) % (0.0-2.0) Differential Total Cells Counted 100 Neutrophils % (Manual) 58 % (45-75) Lymphocytes % (Manual) 19 % (20-45) Monocytes % (Manual) 14 % (1-10) Eosinophils % (Manual) 8 % (0-3) Basophils % (Manual) 1 % (0-2) Band Neutrophils 0 % (0-8) Platelet Estimate Adequate Platelet Morphology Normal Hypochromasia 3+ Anisocytosis 2+ Microcytosis 1+ Sodium Level 136 MMOL/L (136-145) Potassium Level 3.0 MMOL/L (3.5-5.1) Chloride Level 103 MMOL/L (98-107) Carbon Dioxide Level 23 MMOL/L (21-32) Anion Gap 10 mmol/L (5-15) Blood Urea Nitrogen 10 mg/dL (7-18) Creatinine 1.0 MG/DL (0.55-1.30) Estimat Glomerular Filtration Rate > 60 mL/min (>60) Glucose Level 81 MG/DL (74-106) Hemoglobin A1c 4.3 % (4.3-6.0) Uric Acid 4.6 MG/DL (2.6-7.2) Calcium Level 8.2 MG/DL (8.5-10.1) Phosphorus Level 2.2 MG/DL (2.5-4.9) Magnesium Level 1.4 MG/DL (1.8-2.4) Total Bilirubin 1.7 MG/DL (0.2-1.0) Direct Bilirubin 1.1 MG/DL (0.0-0.3) Gamma Glutamyl Transpeptidase 615 U/L (5-85) Aspartate Amino Transf (AST/SGOT) 271 U/L (15-37) Alanine Aminotransferase (ALT/SGPT) 98 U/L (12-78) Alkaline Phosphatase 130 U/L (46-116) C-Reactive Protein, Quantitative 12.3 mg/dL (0.00-0.90) Pro-B-Type Natriuretic Peptide 40 pg/mL (0-125) Total Protein 6.9 G/DL (6.4-8.2) Albumin 2.8 G/DL (3.4-5.0) Globulin 4.1 g/dL Albumin/Globulin Ratio 0.7 (1.0-2.7) Triglycerides Level 59 MG/DL (30-150) Cholesterol Level 169 MG/DL (< 200) LDL Cholesterol 128 mg/dL (<100) HDL Cholesterol 20 MG/DL (40-60) Cholesterol/HDL Ratio 8.5 (3.3-4.4) Lipase 2293 U/L (73-393) Thyroid Stimulating Hormone (TSH) 2.311 uiU/mL (0.358-3.740) Height (Feet): 5 Height (Inches): 6.00 Weight (Pounds): 126 Objective GeN: NAD Pulm: ctab, no cwr CV: rrr, no mgr Abd: soft, nt, nd Ext: no cce Neuro: II-XII intact Keon Harris MD Dec 31, 2018 09:48
[2018-12-31] MEDS ORDERED: Potassium Phosphate 30 MM in NS 275 ML IV SCH (10:00)
--- NOTE | 2018-12-31 10:21 | NUR ---
CASE MANAGEMENT:REVIEW 12/31/18 SI: ACUTE PANCREATITIS 98.7 84 18 103/70 96% ON RA WBC+10.9 H/H-7.5/24.6 PHOS-2.2 MAG-1.4 *LIPASE+2293 IS: IV VENOFER X1 THEN QHS IV K-PHOS X1 IV ZOSYN Q8HRS IV THIAMINE Q24 IV PROTONIX Q12 IVF@75/HR : TELEMETRY STATUS
[2018-12-31] MEDS ORDERED: Iron Sucrose 200 MG in NS 110 ML IV SCH (11:00)
--- NOTE | 2018-12-31 11:02 | General Progress Note ---
Assessment/Plan Assessment/Plan: Assessment - EtOH pancreatitis - abnormal LFT presumed due to pancreatitis - abnormal electolytes Recommendations - follow labs - follow exam - OOB - avoid any and all alcohol Subjective Allergies: Coded Allergies: No Known Allergies (Unverified , 12/29/18) Subjective above noted still with epigastric pain Objective Last 24 Hour Vital Signs Date Time Temp Pulse Resp B/P (MAP) Pulse Ox O2 Delivery O2 Flow Rate FiO2 12/31/18 09:00 Room Air 12/31/18 08:00 87 12/31/18 08:00 98.7 84 18 103/70 (81) 96 12/31/18 04:09 98.2 85 18 100/63 (75) 98 12/31/18 04:00 85 12/31/18 00:14 99.1 99 16 93/66 (75) 98 12/31/18 00:00 100 12/30/18 21:00 Room Air 12/30/18 20:11 97 12/30/18 20:00 98.2 92 18 120/68 (85) 100 12/30/18 16:00 97 12/30/18 16:00 98.1 101 18 124/76 (92) 100 12/30/18 12:00 98.1 98 20 96/63 (74) 99 12/30/18 12:00 93 Intake and Output 12/30/18 12/31/18 18:59 06:59 Intake Total 120 ml 150 ml Balance 120 ml 150 ml Intake Oral 120 ml 150 ml # Voids 3 2 Laboratory Tests 12/31/18 05:35: White Blood Count 10.9H, Red Blood Count 3.12L, Hemoglobin 7.5L, Hematocrit 24.6L, Mean Corpuscular Volume 79L, Mean Corpuscular Hemoglobin 24.0L, Mean Corpuscular Hemoglobin Concent 30.5L, Red Cell Distribution Width 20.3H, Platelet Count 319, Mean Platelet Volume 6.9, Neutrophils (%) (Auto) , Lymphocytes (%) (Auto) , Monocytes (%) (Auto) , Eosinophils (%) (Auto) , Basophils (%) (Auto) , Differential Total Cells Counted 100, Neutrophils % ( Manual) 58, Lymphocytes % (Manual) 19L, Monocytes % (Manual) 14H, Eosinophils % (Manual) 8H, Basophils % (Manual) 1, Band Neutrophils 0, Platelet Estimate Adequate, Platelet Morphology Normal, Hypochromasia 3+, Anisocytosis 2+, Microcytosis 1+, Sodium Level 136, Potassium Level 3.0L, Chloride Level 103, Carbon Dioxide Level 23, Anion Gap 10, Blood Urea Nitrogen 10, Creatinine 1.0, Estimat Glomerular Filtration Rate > 60, Glucose Level 81, Hemoglobin A1c 4.3, Uric Acid 4.6, Calcium Level 8.2L, Phosphorus Level 2.2L, Magnesium Level 1.4L, Total Bilirubin 1.7H, Direct Bilirubin 1.1H, Gamma Glutamyl Transpeptidase 615H , Aspartate Amino Transf (AST/SGOT) 271H, Alanine Aminotransferase (ALT/SGPT) 98H, Alkaline Phosphatase 130H, C-Reactive Protein, Quantitative 12.3H, Pro-B- Type Natriuretic Peptide 40, Total Protein 6.9, Albumin 2.8L, Globulin 4.1, Albumin/Globulin Ratio 0.7L, Triglycerides Level 59, Cholesterol Level 169, LDL Cholesterol 128H, HDL Cholesterol 20L, Cholesterol/HDL Ratio 8.5H, Lipase 2293H , Thyroid Stimulating Hormone (TSH) 2.311 Height (Feet): 5 Height (Inches): 6.00 Weight (Pounds): 126 Objective Thin AA woman NCAT supple CTA RR Abd soft, (+) epigastric TTP no edema Valerie Martin MD Dec 31, 2018 11:02
[2018-12-31] MEDS: Thiamine HCl 100 MG in D5W 55 ML IVPB SCH (11:05)
[2018-12-31] MEDS: D5NS 1,000 ML IV SCH (11:06)
[2018-12-31 12:00] VITALS: BP 102/66
--- NOTE | 2018-12-31 12:07 | Infectious Diseases Prog Note ---
Assessment/Plan Assessment/Plan IMPRESSION: Sepsis or systemic inflammatory response syndrome leukocytosis resolved acute pancreatitis, pyuria, UTI Acute renal failure,improving hypokalemia, anemia, fatty liver. RECOMMENDATION: We will continue Zosyn. We will follow up the cultures. Case was D/W GI Subjective ROS Limited/Unobtainable: Yes Constitutional: Denies: fever Allergies: Coded Allergies: No Known Allergies (Unverified , 12/29/18) Objective Vital Signs Last 24 Hour Vital Signs Date Time Temp Pulse Resp B/P (MAP) Pulse Ox O2 Delivery O2 Flow Rate FiO2 12/31/18 09:00 Room Air 12/31/18 08:00 87 12/31/18 08:00 98.7 84 18 103/70 (81) 96 12/31/18 04:09 98.2 85 18 100/63 (75) 98 12/31/18 04:00 85 12/31/18 00:14 99.1 99 16 93/66 (75) 98 12/31/18 00:00 100 12/30/18 21:00 Room Air 12/30/18 20:11 97 12/30/18 20:00 98.2 92 18 120/68 (85) 100 12/30/18 16:00 97 12/30/18 16:00 98.1 101 18 124/76 (92) 100 Height (Feet): 5 Height (Inches): 6.00 Weight (Pounds): 126 General Appearance: no acute distress HEENT: mucous membranes moist Respiratory/Chest: lungs clear Cardiovascular: normal rate Abdomen: soft, non tender Extremities: no edema Neurologic/Psychiatric: other - sleeping Microbiology Date/Time Source Procedure Growth Status 12/29/18 19:00 Urine,Clean Catch Urine Culture - Preliminary Gram Positive Cocci Resulted Laboratory Tests Test 12/31/18 05:35 White Blood Count 10.9 K/UL (4.8-10.8) H Red Blood Count 3.12 M/UL (4.20-5.40) L Hemoglobin 7.5 G/DL (12.0-16.0) L Hematocrit 24.6 % (37.0-47.0) L Mean Corpuscular Volume 79 FL (80-99) L Mean Corpuscular Hemoglobin 24.0 PG (27.0-31.0) L Mean Corpuscular Hemoglobin Concent 30.5 G/DL (32.0-36.0) L Red Cell Distribution Width 20.3 % (11.6-14.8) H Platelet Count 319 K/UL (150-450) Mean Platelet Volume 6.9 FL (6.5-10.1) Neutrophils (%) (Auto) % (45.0-75.0) Lymphocytes (%) (Auto) % (20.0-45.0) Monocytes (%) (Auto) % (1.0-10.0) Eosinophils (%) (Auto) % (0.0-3.0) Basophils (%) (Auto) % (0.0-2.0) Differential Total Cells Counted 100 Neutrophils % (Manual) 58 % (45-75) Lymphocytes % (Manual) 19 % (20-45) L Monocytes % (Manual) 14 % (1-10) H Eosinophils % (Manual) 8 % (0-3) H Basophils % (Manual) 1 % (0-2) Band Neutrophils 0 % (0-8) Platelet Estimate Adequate Platelet Morphology Normal Hypochromasia 3+ Anisocytosis 2+ Microcytosis 1+ Sodium Level 136 MMOL/L (136-145) Potassium Level 3.0 MMOL/L (3.5-5.1) L Chloride Level 103 MMOL/L (98-107) Carbon Dioxide Level 23 MMOL/L (21-32) Anion Gap 10 mmol/L (5-15) Blood Urea Nitrogen 10 mg/dL (7-18) Creatinine 1.0 MG/DL (0.55-1.30) Estimat Glomerular Filtration Rate > 60 mL/min (>60) Glucose Level 81 MG/DL (74-106) Hemoglobin A1c 4.3 % (4.3-6.0) Uric Acid 4.6 MG/DL (2.6-7.2) Calcium Level 8.2 MG/DL (8.5-10.1) L Phosphorus Level 2.2 MG/DL (2.5-4.9) L Magnesium Level 1.4 MG/DL (1.8-2.4) L Total Bilirubin 1.7 MG/DL (0.2-1.0) H Direct Bilirubin 1.1 MG/DL (0.0-0.3) H Gamma Glutamyl Transpeptidase 615 U/L (5-85) H Aspartate Amino Transf (AST/SGOT) 271 U/L (15-37) H Alanine Aminotransferase (ALT/SGPT) 98 U/L (12-78) H Alkaline Phosphatase 130 U/L (46-116) H C-Reactive Protein, Quantitative 12.3 mg/dL (0.00-0.90) H Pro-B-Type Natriuretic Peptide 40 pg/mL (0-125) Total Protein 6.9 G/DL (6.4-8.2) Albumin 2.8 G/DL (3.4-5.0) L Globulin 4.1 g/dL Albumin/Globulin Ratio 0.7 (1.0-2.7) L Triglycerides Level 59 MG/DL (30-150) Cholesterol Level 169 MG/DL (< 200) LDL Cholesterol 128 mg/dL (<100) H HDL Cholesterol 20 MG/DL (40-60) L Cholesterol/HDL Ratio 8.5 (3.3-4.4) H Lipase 2293 U/L (73-393) H Thyroid Stimulating Hormone (TSH) 2.311 uiU/mL (0.358-3.740) Current Medications Medications (Trade) Dose Ordered Sig/Bartolo Route PRN Reason Start Time Stop Time Status Last Admin Dose Admin Dextrose/Sodium Chloride 1,000 ml @ 75 mls/hr [id number] IV 12/30/18 08:30 01/29/19 08:29 12/31/18 11:06 Folic Acid (Folate) 3 mg DAILY ORAL 12/30/18 09:45 01/29/19 09:44 12/31/18 09:12 Iron Sucrose 100 mg/Sodium Chloride 60 ml @ 240 mls/hr BEDTIME IV 01/01/19 21:00 01/05/19 21:14 Iron Sucrose 200 mg/Sodium Chloride 120 ml @ 240 mls/hr ONCE IV 12/31/18 11:00 12/31/18 13:00 12/31/18 11:06 Morphine Sulfate (Morphine Sulfate) 2 mg Q4H PRN IVP Severe Pain (Pain Scale 7-10) 12/30/18 04:15 01/06/19 00:14 Pantoprazole (Protonix) 40 mg EVERY 12 HOURS IVP 12/30/18 09:00 01/29/19 08:59 12/31/18 09:12 Piperacillin Sod/ Tazobactam Sod 3.375 gm/Sodium Chloride 110 ml @ 27.5 mls/hr EVERY 8 HOURS IVPB 12/30/18 09:00 01/04/19 08:59 12/31/18 05:34 Potassium Phosphate 30 mm/ Sodium Chloride 285 ml @ 47.5 mls/hr ONCE IV 12/31/18 10:00 12/31/18 16:00 12/31/18 10:01 Potassium Chloride (K-Dur) 40 meq TWICE A DAY ORAL 12/31/18 09:00 01/30/19 08:59 12/31/18 09:13 Thiamine HCl 100 mg/Dextrose 56 ml @ 112 mls/hr Q24H IVPB 12/30/18 11:00 01/29/19 10:59 12/31/18 11:05 Jude Serna MD Dec 31, 2018 12:07
--- NOTE | 2018-12-31 13:41 | Nephrology Progress Note ---
Assessment/Plan Problem List: (1) GENARO (acute kidney injury) Assessment: Cr wnl now (2) Acute hypokalemia (3) Pancreatitis (4) Anemia, iron deficiency (5) UTI (urinary tract infection) Assessment Pancreatitis GENARO , presents with Cr of 1.7 HypoKalemia Electrolyte imbalance Anemia UTI Pancreatitis ETOH Abuse Plan IV Iron Hydrate IV KCL IV Thiamine Anemia piña GI eval Subjective ROS Limited/Unobtainable: No Objective Objective Last 24 Hour Vital Signs Date Time Temp Pulse Resp B/P (MAP) Pulse Ox O2 Delivery O2 Flow Rate FiO2 12/31/18 09:00 Room Air 12/31/18 08:00 87 12/31/18 08:00 98.7 84 18 103/70 (81) 96 12/31/18 04:09 98.2 85 18 100/63 (75) 98 12/31/18 04:00 85 12/31/18 00:14 99.1 99 16 93/66 (75) 98 12/31/18 00:00 100 12/30/18 21:00 Room Air 12/30/18 20:11 97 12/30/18 20:00 98.2 92 18 120/68 (85) 100 12/30/18 16:00 97 12/30/18 16:00 98.1 101 18 124/76 (92) 100 Intake and Output 12/30/18 12/31/18 19:00 07:00 Intake Total 120 ml 270 ml Balance 120 ml 270 ml Intake Oral 120 ml 270 ml # Voids 3 2 Laboratory Tests 12/31/18 05:35: White Blood Count 10.9H, Red Blood Count 3.12L, Hemoglobin 7.5L, Hematocrit 24.6L, Mean Corpuscular Volume 79L, Mean Corpuscular Hemoglobin 24.0L, Mean Corpuscular Hemoglobin Concent 30.5L, Red Cell Distribution Width 20.3H, Platelet Count 319, Mean Platelet Volume 6.9, Neutrophils (%) (Auto) , Lymphocytes (%) (Auto) , Monocytes (%) (Auto) , Eosinophils (%) (Auto) , Basophils (%) (Auto) , Differential Total Cells Counted 100, Neutrophils % ( Manual) 58, Lymphocytes % (Manual) 19L, Monocytes % (Manual) 14H, Eosinophils % (Manual) 8H, Basophils % (Manual) 1, Band Neutrophils 0, Platelet Estimate Adequate, Platelet Morphology Normal, Hypochromasia 3+, Anisocytosis 2+, Microcytosis 1+, Sodium Level 136, Potassium Level 3.0L, Chloride Level 103, Carbon Dioxide Level 23, Anion Gap 10, Blood Urea Nitrogen 10, Creatinine 1.0, Estimat Glomerular Filtration Rate > 60, Glucose Level 81, Hemoglobin A1c 4.3, Uric Acid 4.6, Calcium Level 8.2L, Phosphorus Level 2.2L, Magnesium Level 1.4L, Total Bilirubin 1.7H, Direct Bilirubin 1.1H, Gamma Glutamyl Transpeptidase 615H , Aspartate Amino Transf (AST/SGOT) 271H, Alanine Aminotransferase (ALT/SGPT) 98H, Alkaline Phosphatase 130H, C-Reactive Protein, Quantitative 12.3H, Pro-B- Type Natriuretic Peptide 40, Total Protein 6.9, Albumin 2.8L, Globulin 4.1, Albumin/Globulin Ratio 0.7L, Triglycerides Level 59, Cholesterol Level 169, LDL Cholesterol 128H, HDL Cholesterol 20L, Cholesterol/HDL Ratio 8.5H, Lipase 2293H , Thyroid Stimulating Hormone (TSH) 2.311 Height (Feet): 5 Height (Inches): 6.00 Weight (Pounds): 126 General Appearance: no apparent distress Respiratory/Chest: lungs clear Abdomen: soft Fermin Osorio MD Dec 31, 2018 13:41
[2018-12-31] MEDS: Thiamine 100mg tab ORAL SCH (13:57)
--- NOTE | 2018-12-31 15:43 | Surgery Progress Note ---
Surgery Progress Note Subjective Symptoms: improved, tolerating diet, voiding well, passing flatus, pain decreased Objective Last 24 Hour Vital Signs Date Time Temp Pulse Resp B/P (MAP) Pulse Ox O2 Delivery O2 Flow Rate FiO2 12/31/18 12:00 98.1 88 19 102/66 (78) 94 12/31/18 12:00 92 12/31/18 09:00 Room Air 12/31/18 08:00 87 12/31/18 08:00 98.7 84 18 103/70 (81) 96 12/31/18 04:09 98.2 85 18 100/63 (75) 98 12/31/18 04:00 85 12/31/18 00:14 99.1 99 16 93/66 (75) 98 12/31/18 00:00 100 12/30/18 21:00 Room Air 12/30/18 20:11 97 12/30/18 20:00 98.2 92 18 120/68 (85) 100 12/30/18 16:00 97 12/30/18 16:00 98.1 101 18 124/76 (92) 100 I&O Intake and Output 12/30/18 12/31/18 19:00 07:00 Intake Total 120 ml 270 ml Balance 120 ml 270 ml Intake Oral 120 ml 270 ml # Voids 3 2 Cardiovascular: RSR Respiratory: clear Abdomen: soft, flat, non-tender, present bowel sounds, non-distended Extremities: no edema, no tenderness, no cyanosis Laboratory Tests Test 12/31/18 05:35 White Blood Count 10.9 K/UL (4.8-10.8) H Red Blood Count 3.12 M/UL (4.20-5.40) L Hemoglobin 7.5 G/DL (12.0-16.0) L Hematocrit 24.6 % (37.0-47.0) L Mean Corpuscular Volume 79 FL (80-99) L Mean Corpuscular Hemoglobin 24.0 PG (27.0-31.0) L Mean Corpuscular Hemoglobin Concent 30.5 G/DL (32.0-36.0) L Red Cell Distribution Width 20.3 % (11.6-14.8) H Platelet Count 319 K/UL (150-450) Mean Platelet Volume 6.9 FL (6.5-10.1) Neutrophils (%) (Auto) % (45.0-75.0) Lymphocytes (%) (Auto) % (20.0-45.0) Monocytes (%) (Auto) % (1.0-10.0) Eosinophils (%) (Auto) % (0.0-3.0) Basophils (%) (Auto) % (0.0-2.0) Differential Total Cells Counted 100 Neutrophils % (Manual) 58 % (45-75) Lymphocytes % (Manual) 19 % (20-45) L Monocytes % (Manual) 14 % (1-10) H Eosinophils % (Manual) 8 % (0-3) H Basophils % (Manual) 1 % (0-2) Band Neutrophils 0 % (0-8) Platelet Estimate Adequate Platelet Morphology Normal Hypochromasia 3+ Anisocytosis 2+ Microcytosis 1+ Sodium Level 136 MMOL/L (136-145) Potassium Level 3.0 MMOL/L (3.5-5.1) L Chloride Level 103 MMOL/L (98-107) Carbon Dioxide Level 23 MMOL/L (21-32) Anion Gap 10 mmol/L (5-15) Blood Urea Nitrogen 10 mg/dL (7-18) Creatinine 1.0 MG/DL (0.55-1.30) Estimat Glomerular Filtration Rate > 60 mL/min (>60) Glucose Level 81 MG/DL (74-106) Hemoglobin A1c 4.3 % (4.3-6.0) Uric Acid 4.6 MG/DL (2.6-7.2) Calcium Level 8.2 MG/DL (8.5-10.1) L Phosphorus Level 2.2 MG/DL (2.5-4.9) L Magnesium Level 1.4 MG/DL (1.8-2.4) L Total Bilirubin 1.7 MG/DL (0.2-1.0) H Direct Bilirubin 1.1 MG/DL (0.0-0.3) H Gamma Glutamyl Transpeptidase 615 U/L (5-85) H Aspartate Amino Transf (AST/SGOT) 271 U/L (15-37) H Alanine Aminotransferase (ALT/SGPT) 98 U/L (12-78) H Alkaline Phosphatase 130 U/L (46-116) H C-Reactive Protein, Quantitative 12.3 mg/dL (0.00-0.90) H Pro-B-Type Natriuretic Peptide 40 pg/mL (0-125) Total Protein 6.9 G/DL (6.4-8.2) Albumin 2.8 G/DL (3.4-5.0) L Globulin 4.1 g/dL Albumin/Globulin Ratio 0.7 (1.0-2.7) L Triglycerides Level 59 MG/DL (30-150) Cholesterol Level 169 MG/DL (< 200) LDL Cholesterol 128 mg/dL (<100) H HDL Cholesterol 20 MG/DL (40-60) L Cholesterol/HDL Ratio 8.5 (3.3-4.4) H Lipase 2293 U/L (73-393) H Thyroid Stimulating Hormone (TSH) 2.311 uiU/mL (0.358-3.740) Plan Problems: (1) Abdominal pain Assessment & Plan: 28-year-old female with abdominal pain. Epigastric region clinically correlating to pancreatitis. Ultrasound noted and no stones identified. Examination of the fairly benign. Labs noted. Leukocytosis potentially from UTI versus pancreatitis. pain improved no complaints tolerating diet feels much better labs likely from pancreatitis (ex lft's No acute surgical intervention planned at this time. diet as tolerated IV fluids Pain regimen We will monitor abdominal exam Trend labs We will follow with recommendations thank you for allowing me to participate in patient's care d/c planning alcohol cessation (2) Pancreatitis Gildardo Wilson Dec 31, 2018 15:43
[2018-12-31 16:00] VITALS: BP 110/70
--- NOTE | 2018-12-31 19:35 | NUR ---
HAND-OFF: Report given to James/RN, Patient is awake, watching TV, in stable condition. Endorsed plan of care.
--- NOTE | 2018-12-31 19:36 | NUR ---
NURSE NOTES: Got report from Letha RN. Pt in stable condition. Denies any pain. No s/s of distress or discomfort noted. Pt resting in bed comfortably. Bed in low and locked position, call light within reach, bedside table within reach. Continue to monitor.
[2018-12-31 20:00] VITALS: BP 107/77
--- NOTE | 2018-12-31 21:18 | General Progress Note ---
Assessment/Plan Problem List: (1) Pancreatitis ICD Codes: K85.90 - Acute pancreatitis without necrosis or infection, unspecified SNOMED: 43318621 Qualifiers: Qualified Codes: K85.90 - Acute pancreatitis without necrosis or infection, unspecified (2) Abdominal pain ICD Codes: R10.9 - Unspecified abdominal pain SNOMED: 75294420 Qualifiers: Qualified Codes: R10.31 - Right lower quadrant pain Status: progressing Assessment/Plan: pancreatits is improving diet per gi give fluids afebrile Subjective ROS Limited/Unobtainable: Yes Allergies: Coded Allergies: No Known Allergies (Unverified , 12/29/18) Objective Last 24 Hour Vital Signs Date Time Temp Pulse Resp B/P (MAP) Pulse Ox O2 Delivery O2 Flow Rate FiO2 12/31/18 16:00 97 12/31/18 16:00 98.4 85 19 110/70 (83) 97 12/31/18 12:00 98.1 88 19 102/66 (78) 94 12/31/18 12:00 92 12/31/18 09:00 Room Air 12/31/18 08:00 87 12/31/18 08:00 98.7 84 18 103/70 (81) 96 12/31/18 04:09 98.2 85 18 100/63 (75) 98 12/31/18 04:00 85 12/31/18 00:14 99.1 99 16 93/66 (75) 98 12/31/18 00:00 100 Intake and Output 12/30/18 12/31/18 19:00 07:00 Intake Total 120 ml 270 ml Balance 120 ml 270 ml Intake Oral 120 ml 270 ml # Voids 3 2 Laboratory Tests 12/31/18 05:35: White Blood Count 10.9H, Red Blood Count 3.12L, Hemoglobin 7.5L, Hematocrit 24.6L, Mean Corpuscular Volume 79L, Mean Corpuscular Hemoglobin 24.0L, Mean Corpuscular Hemoglobin Concent 30.5L, Red Cell Distribution Width 20.3H, Platelet Count 319, Mean Platelet Volume 6.9, Neutrophils (%) (Auto) , Lymphocytes (%) (Auto) , Monocytes (%) (Auto) , Eosinophils (%) (Auto) , Basophils (%) (Auto) , Differential Total Cells Counted 100, Neutrophils % ( Manual) 58, Lymphocytes % (Manual) 19L, Monocytes % (Manual) 14H, Eosinophils % (Manual) 8H, Basophils % (Manual) 1, Band Neutrophils 0, Platelet Estimate Adequate, Platelet Morphology Normal, Hypochromasia 3+, Anisocytosis 2+, Microcytosis 1+, Sodium Level 136, Potassium Level 3.0L, Chloride Level 103, Carbon Dioxide Level 23, Anion Gap 10, Blood Urea Nitrogen 10, Creatinine 1.0, Estimat Glomerular Filtration Rate > 60, Glucose Level 81, Hemoglobin A1c 4.3, Uric Acid 4.6, Calcium Level 8.2L, Phosphorus Level 2.2L, Magnesium Level 1.4L, Total Bilirubin 1.7H, Direct Bilirubin 1.1H, Gamma Glutamyl Transpeptidase 615H , Aspartate Amino Transf (AST/SGOT) 271H, Alanine Aminotransferase (ALT/SGPT) 98H, Alkaline Phosphatase 130H, C-Reactive Protein, Quantitative 12.3H, Pro-B- Type Natriuretic Peptide 40, Total Protein 6.9, Albumin 2.8L, Globulin 4.1, Albumin/Globulin Ratio 0.7L, Triglycerides Level 59, Cholesterol Level 169, LDL Cholesterol 128H, HDL Cholesterol 20L, Cholesterol/HDL Ratio 8.5H, Lipase 2293H , Thyroid Stimulating Hormone (TSH) 2.311 Height (Feet): 5 Height (Inches): 6.00 Weight (Pounds): 126 Cardiovascular: regular rhythm Respiratory/Chest: lungs clear Abdomen: soft Elotn Watson MD Dec 31, 2018 21:18
[2019-01-01] VITALS: BP 107/67
[2019-01-01] MEDS: D5NS 1,000 ML IV SCH (00:34)
[2019-01-01 04:00] VITALS: BP 107/72
[2019-01-01] MEDS: Piperacillin/Tazobactam 3.375 GM in NS 110 ML IVPB SCH (05:42)
[2019-01-01 06:48] LABS: HEMATOCRIT 23.6 % (37.0-47.0); MEAN CORPUSCULAR VOLUME 80 FL (80-99); PLATELET COUNT 362 K/UL (150-450); RED BLOOD COUNT 2.94 M/UL (4.20-5.40); RED CELL DISTRIBUTION WIDTH 20.4 % (11.6-14.8); WHITE BLOOD COUNT 8.4 K/UL (4.8-10.8)
--- NOTE | 2019-01-01 07:00 | NUR ---
HAND-OFF: Report given to Anu VAZQUEZ.
[2019-01-01 07:16] LABS: AMYLASE 90 U/L (25-115)
[2019-01-01 07:37] LABS: ALANINE AMINOTRANSFERASE 134 U/L (12-78); ALBUMIN 2.6 G/DL (3.4-5.0); ALBUMIN/GLOBULIN RATIO 0.7 (1.0-2.7); ALKALINE PHOSPHATASE 141 U/L (46-116); ANION GAP 10 mmol/L (5-15); ASPARTATE AMINO TRANSFERASE 284 U/L (15-37); BILIRUBIN,TOTAL 1.3 MG/DL (0.2-1.0); BLOOD UREA NITROGEN 6 mg/dL (7-18); CALCIUM 8.1 MG/DL (8.5-10.1); CARBON DIOXIDE 22 MMOL/L (21-32); CHLORIDE 107 MMOL/L (98-107); CREATININE 0.8 MG/DL (0.55-1.30); PHOSPHORUS 2.5 MG/DL (2.5-4.9); POTASSIUM 3.6 MMOL/L (3.5-5.1); SODIUM 139 MMOL/L (136-145)
[2019-01-01 07:42] LABS: BILIRUBIN,DIRECT 0.8 MG/DL (0.0-0.3)
[2019-01-01 08:00] VITALS: BP 103/67
--- NOTE | 2019-01-01 08:00 | NUR ---
NURSE NOTES: received pt in the bed, awake, alert, oriented, ambulatory, vital signs stable, no co pain, no SOB, skin warm and dry to touch, intact, Mag level 1.4, dr. Osorio aware, ordered 6gm of Mag sulfate, bed in low position, call light within reach.
--- NOTE | 2019-01-01 09:19 | NUR ---
RD ASSESSMENT & RECOMMENDATIONS SEE CARE ACTIVITY FOR COMPLETE ASSESSMENT DAILY ESTIMATED NEEDS: Needs based on Pancreatitis 57kg 25-30 kcals/kg 1091-6669 total kcals 1-1.5 g protein/kg 57-86 g total protein 25-30 mL/kg 0197-3100 total fluid mLs NUTRITION DIAGNOSIS: Decreased fat needs r/t pancreatitis as evidenced by h/o ETOH use, elevated Lipase (1462), elev T bili, elev LFT's. CURRENT DIET: now Regular PO DIET RECOMMENDATIONS-->> REC DIET CHANGE TO LOW FAT ADDITIONAL RECOMMENDATIONS: 1) Obtain a standing wt EMR wt: 126# vs bed scale wt: 139# 2) Rec Vit Bi/ Folate/ MVI supplementation 3) Provided diet edu for Low Fat diet
[2019-01-01] MEDS: Thiamine 100mg tab ORAL SCH (09:33)
--- NOTE | 2019-01-01 10:45 | NUR ---
CASE MANAGEMENT:REVIEW 01/01/19 SI: ACUTE PANCREATITIS H/H-7.0/23.6 TBILI+1.3 DBILI+0.8 AST/ALT+284/134 LIPASE+1462 IS: IV ZOSYN Q8HRS IV VENOFER QHS IV MAG SULFATE Q1HR X6 PROTONIX PO Q12 K-DUR PO BID : TELEMETRY STATUS DCP; FROM HOME
--- NOTE | 2019-01-01 10:50 | Nephrology Progress Note ---
Assessment/Plan Problem List: (1) GENARO (acute kidney injury) Assessment: Cr wnl now (2) Acute hypokalemia (3) Pancreatitis (4) Anemia, iron deficiency (5) UTI (urinary tract infection) Assessment Pancreatitis GENARO , presents with Cr of 1.7 HypoKalemia Electrolyte imbalance Anemia UTI Pancreatitis ETOH Abuse Plan Med surg tolerating PO IV Iron PO KCL PO Thiamine Anemia piña GI eval ? DC planning? Subjective ROS Limited/Unobtainable: No Objective Objective Last 24 Hour Vital Signs Date Time Temp Pulse Resp B/P (MAP) Pulse Ox O2 Delivery O2 Flow Rate FiO2 01/01/19 08:00 97 01/01/19 08:00 98.5 87 20 103/67 (79) 97 01/01/19 04:00 80 01/01/19 04:00 98.2 80 20 107/72 (84) 97 01/01/19 00:00 84 01/01/19 00:00 98.4 99 20 107/67 (80) 100 12/31/18 21:00 Room Air 12/31/18 20:00 98.8 92 20 107/77 (87) 100 12/31/18 20:00 83 12/31/18 16:00 97 12/31/18 16:00 98.4 85 19 110/70 (83) 97 12/31/18 12:00 98.1 88 19 102/66 (78) 94 12/31/18 12:00 92 Intake and Output 12/31/18 01/01/19 18:59 06:59 Intake Total 400 ml Balance 400 ml Intake Oral 400 ml # Voids 3 2 Laboratory Tests 01/01/19 05:30: White Blood Count 8.4, Red Blood Count 2.94L, Hemoglobin 7.0L, Hematocrit 23.6L , Mean Corpuscular Volume 80, Mean Corpuscular Hemoglobin 24.0L, Mean Corpuscular Hemoglobin Concent 29.9L, Red Cell Distribution Width 20.4H, Platelet Count 362, Mean Platelet Volume 6.8, Neutrophils (%) (Auto) , Lymphocytes (%) (Auto) , Monocytes (%) (Auto) , Eosinophils (%) (Auto) , Basophils (%) (Auto) , Differential Total Cells Counted 100, Neutrophils % ( Manual) 51, Lymphocytes % (Manual) 26, Monocytes % (Manual) 13H, Eosinophils % ( Manual) 8H, Basophils % (Manual) 2, Band Neutrophils 0, Platelet Estimate Adequate, Platelet Morphology Normal, Hypochromasia 3+, Anisocytosis 2+, Sodium Level 139, Potassium Level 3.6, Chloride Level 107, Carbon Dioxide Level 22, Anion Gap 10, Blood Urea Nitrogen 6L, Creatinine 0.8, Estimat Glomerular Filtration Rate > 60, Glucose Level 107H, Calcium Level 8.1L, Phosphorus Level 2.5, Magnesium Level 1.4L, Total Bilirubin 1.3H, Direct Bilirubin 0.8H, Aspartate Amino Transf (AST/SGOT) 284H, Alanine Aminotransferase (ALT/SGPT) 134H , Alkaline Phosphatase 141H, C-Reactive Protein, Quantitative 5.9H, Pro-B-Type Natriuretic Peptide 106, Total Protein 6.2L, Albumin 2.6L, Globulin 3.6, Albumin /Globulin Ratio 0.7L, Amylase Level 90, Lipase 1462H Height (Feet): 5 Height (Inches): 6.00 Weight (Pounds): 126 General Appearance: no apparent distress Cardiovascular: normal rate Respiratory/Chest: lungs clear Abdomen: soft Fermin Osorio MD Jan 01, 2019 10:50
--- NOTE | 2019-01-01 11:29 | NUR ---
NURSE NOTES: 2gm of Mag sulfate given, now waiting bag of 4gm.
[2019-01-01 12:00] VITALS: BP 110/78
--- NOTE | 2019-01-01 12:12 | Infectious Diseases Prog Note ---
Assessment/Plan Assessment/Plan IMPRESSION: Sepsis or systemic inflammatory response syndrome leukocytosis resolved acute pancreatitis, alcoholic pyuria, UTI treated Acute renal failure,improving hypokalemia, corrected anemia, fatty liver. RECOMMENDATION: Discontinue Zosyn. Observe off antibiotic Subjective ROS Limited/Unobtainable: No Constitutional: Reports: no symptoms Gastrointestinal/Abdominal: Reports: no symptoms Genitourinary: Reports: no symptoms Allergies: Coded Allergies: No Known Allergies (Unverified , 12/29/18) Objective Vital Signs Last 24 Hour Vital Signs Date Time Temp Pulse Resp B/P (MAP) Pulse Ox O2 Delivery O2 Flow Rate FiO2 01/01/19 09:00 Room Air 01/01/19 08:00 97 01/01/19 08:00 98.5 87 20 103/67 (79) 97 01/01/19 04:00 80 01/01/19 04:00 98.2 80 20 107/72 (84) 97 01/01/19 00:00 84 01/01/19 00:00 98.4 99 20 107/67 (80) 100 12/31/18 21:00 Room Air 12/31/18 20:00 98.8 92 20 107/77 (87) 100 12/31/18 20:00 83 12/31/18 16:00 97 12/31/18 16:00 98.4 85 19 110/70 (83) 97 Height (Feet): 5 Height (Inches): 6.00 Weight (Pounds): 126 General Appearance: no acute distress HEENT: mucous membranes moist Respiratory/Chest: lungs clear Cardiovascular: normal rate Abdomen: soft, non tender Extremities: no edema Neurologic/Psychiatric: alert, oriented x 3, responsive Microbiology Date/Time Source Procedure Growth Status 12/29/18 19:00 Urine,Clean Catch Urine Culture - Preliminary Gram Positive Cocci Resulted Laboratory Tests Test 01/01/19 05:30 White Blood Count 8.4 K/UL (4.8-10.8) Red Blood Count 2.94 M/UL (4.20-5.40) L Hemoglobin 7.0 G/DL (12.0-16.0) L Hematocrit 23.6 % (37.0-47.0) L Mean Corpuscular Volume 80 FL (80-99) Mean Corpuscular Hemoglobin 24.0 PG (27.0-31.0) L Mean Corpuscular Hemoglobin Concent 29.9 G/DL (32.0-36.0) L Red Cell Distribution Width 20.4 % (11.6-14.8) H Platelet Count 362 K/UL (150-450) Mean Platelet Volume 6.8 FL (6.5-10.1) Neutrophils (%) (Auto) % (45.0-75.0) Lymphocytes (%) (Auto) % (20.0-45.0) Monocytes (%) (Auto) % (1.0-10.0) Eosinophils (%) (Auto) % (0.0-3.0) Basophils (%) (Auto) % (0.0-2.0) Differential Total Cells Counted 100 Neutrophils % (Manual) 51 % (45-75) Lymphocytes % (Manual) 26 % (20-45) Monocytes % (Manual) 13 % (1-10) H Eosinophils % (Manual) 8 % (0-3) H Basophils % (Manual) 2 % (0-2) Band Neutrophils 0 % (0-8) Platelet Estimate Adequate Platelet Morphology Normal Hypochromasia 3+ Anisocytosis 2+ Sodium Level 139 MMOL/L (136-145) Potassium Level 3.6 MMOL/L (3.5-5.1) Chloride Level 107 MMOL/L (98-107) Carbon Dioxide Level 22 MMOL/L (21-32) Anion Gap 10 mmol/L (5-15) Blood Urea Nitrogen 6 mg/dL (7-18) L Creatinine 0.8 MG/DL (0.55-1.30) Estimat Glomerular Filtration Rate > 60 mL/min (>60) Glucose Level 107 MG/DL (74-106) H Calcium Level 8.1 MG/DL (8.5-10.1) L Phosphorus Level 2.5 MG/DL (2.5-4.9) Magnesium Level 1.4 MG/DL (1.8-2.4) L Total Bilirubin 1.3 MG/DL (0.2-1.0) H Direct Bilirubin 0.8 MG/DL (0.0-0.3) H Aspartate Amino Transf (AST/SGOT) 284 U/L (15-37) H Alanine Aminotransferase (ALT/SGPT) 134 U/L (12-78) H Alkaline Phosphatase 141 U/L (46-116) H C-Reactive Protein, Quantitative 5.9 mg/dL (0.00-0.90) H Pro-B-Type Natriuretic Peptide 106 pg/mL (0-125) Total Protein 6.2 G/DL (6.4-8.2) L Albumin 2.6 G/DL (3.4-5.0) L Globulin 3.6 g/dL Albumin/Globulin Ratio 0.7 (1.0-2.7) L Amylase Level 90 U/L (25-115) Lipase 1462 U/L (73-393) H Current Medications Medications (Trade) Dose Ordered Sig/Bartolo Route PRN Reason Start Time Stop Time Status Last Admin Dose Admin Folic Acid (Folate) 3 mg DAILY ORAL 12/30/18 09:45 01/29/19 09:44 01/01/19 09:33 Iron Sucrose 100 mg/Sodium Chloride 60 ml @ 240 mls/hr BEDTIME IV 01/01/19 21:00 01/05/19 21:14 Magnesium Sulfate 4000 mg/Dextrose 283 ml @ 65 mls/hr ONCE IV 01/01/19 12:30 01/01/19 13:30 Morphine Sulfate (Morphine Sulfate) 2 mg Q4H PRN IVP Severe Pain (Pain Scale 7-10) 12/30/18 04:15 01/06/19 00:14 Pantoprazole (Protonix) 40 mg EVERY 12 HOURS ORAL 12/31/18 21:00 01/30/19 20:59 01/01/19 09:33 Piperacillin Sod/ Tazobactam Sod 3.375 gm/Sodium Chloride 110 ml @ 27.5 mls/hr EVERY 8 HOURS IVPB 12/30/18 09:00 01/04/19 08:59 01/01/19 05:42 Potassium Chloride (K-Dur) 40 meq TWICE A DAY ORAL 12/31/18 09:00 01/30/19 08:59 01/01/19 09:33 Thiamine HCl (Vitamin B1) 100 mg DAILY ORAL 12/31/18 13:45 01/30/19 13:44 01/01/19 09:33 Jude Serna MD Jan 01, 2019 12:12
[2019-01-01] MEDS ORDERED: D5W IV SCH (12:30)
[2019-01-01] MEDS ORDERED: MAGNESIUM SULFATE IV SCH (12:30)
[2019-01-01] MEDS ORDERED: LORazepam 1mg tab ORAL PRN ×2 (14:45→20:45)
--- NOTE | 2019-01-01 15:07 | NUR ---
NURSE NOTES: pt resting, no co pain, HGB 7.0, refuse transfusion, doctor aware, continue monitoring.
[2019-01-01 16:00] VITALS: BP 116/71
--- NOTE | 2019-01-01 19:04 | General Progress Note ---
Assessment/Plan Status: stable, progressing Assessment/Plan: Assessment - EtOH pancreatitis - abnormal LFT presumed due to pancreatitis - abnormal electolytes Recommendations - follow labs - follow exam - OOB - avoid any and all alcohol Subjective Allergies: Coded Allergies: No Known Allergies (Unverified , 12/29/18) Subjective above noted still with epigastric pain Objective Last 24 Hour Vital Signs Date Time Temp Pulse Resp B/P (MAP) Pulse Ox O2 Delivery O2 Flow Rate FiO2 01/01/19 16:00 78 01/01/19 16:00 98.1 83 19 116/71 (86) 99 01/01/19 12:00 79 01/01/19 12:00 98.1 87 19 110/78 (89) 100 01/01/19 09:00 Room Air 01/01/19 08:00 97 01/01/19 08:00 98.5 87 20 103/67 (79) 97 01/01/19 04:00 80 01/01/19 04:00 98.2 80 20 107/72 (84) 97 01/01/19 00:00 84 01/01/19 00:00 98.4 99 20 107/67 (80) 100 12/31/18 21:00 Room Air 12/31/18 20:00 98.8 92 20 107/77 (87) 100 12/31/18 20:00 83 Intake and Output 12/31/18 01/01/19 19:00 07:00 Intake Total 280 ml Balance 280 ml Intake Oral 280 ml # Voids 3 2 Laboratory Tests 01/01/19 05:30: White Blood Count 8.4, Red Blood Count 2.94L, Hemoglobin 7.0L, Hematocrit 23.6L , Mean Corpuscular Volume 80, Mean Corpuscular Hemoglobin 24.0L, Mean Corpuscular Hemoglobin Concent 29.9L, Red Cell Distribution Width 20.4H, Platelet Count 362, Mean Platelet Volume 6.8, Neutrophils (%) (Auto) , Lymphocytes (%) (Auto) , Monocytes (%) (Auto) , Eosinophils (%) (Auto) , Basophils (%) (Auto) , Differential Total Cells Counted 100, Neutrophils % ( Manual) 51, Lymphocytes % (Manual) 26, Monocytes % (Manual) 13H, Eosinophils % ( Manual) 8H, Basophils % (Manual) 2, Band Neutrophils 0, Platelet Estimate Adequate, Platelet Morphology Normal, Hypochromasia 3+, Anisocytosis 2+, Sodium Level 139, Potassium Level 3.6, Chloride Level 107, Carbon Dioxide Level 22, Anion Gap 10, Blood Urea Nitrogen 6L, Creatinine 0.8, Estimat Glomerular Filtration Rate > 60, Glucose Level 107H, Calcium Level 8.1L, Phosphorus Level 2.5, Magnesium Level 1.4L, Total Bilirubin 1.3H, Direct Bilirubin 0.8H, Aspartate Amino Transf (AST/SGOT) 284H, Alanine Aminotransferase (ALT/SGPT) 134H , Alkaline Phosphatase 141H, C-Reactive Protein, Quantitative 5.9H, Pro-B-Type Natriuretic Peptide 106, Total Protein 6.2L, Albumin 2.6L, Globulin 3.6, Albumin /Globulin Ratio 0.7L, Amylase Level 90, Lipase 1462H Height (Feet): 5 Height (Inches): 6.00 Weight (Pounds): 126 Objective Thin AA woman NCAT supple CTA RR Abd soft, (+) epigastric TTP no edema Valerie Martin MD Jan 01, 2019 19:04
--- NOTE | 2019-01-01 19:35 | NUR ---
NURSE NOTES: Received report from GEORGE Moctezuma. Patient is awake, lying in semi toled[place]'s; resting comfortably. A/Ox4. Able to make needs known. Denies pain at this time. No signs of distress noted. Checked IV site and flushed. No erythema, bleeding or infiltration noted. Bed at lowest position, brakes on, siderailsx2. Call light within reach. Will continue to monitor.
--- NOTE | 2019-01-01 19:39 | NUR ---
HAND-OFF: Report given to SOLANGE VAZQUEZ, no distress at this time.
--- NOTE | 2019-01-01 19:45 | Progress Note ---
DATE: 01/01/2019 SUBJECTIVE: The patient is in bed, no acute distress, arousable. The patient is compliant with care, less anxious, tolerating medication. Alcohol withdrawal symptoms are improved. MENTAL STATUS EXAMINATION: The patient is alert and oriented times self, place, situation. Mood is neutral. Affect is flat. Thought process is concrete. Thought content, no suicidal or homicidal ideation. Cognition is intact. Insight and judgment is fair. ASSESSMENT: [place] I Alcohol dependence. Anxiety disorder. [place] II Deferred. [place] III As above. [place] IV Low. [place] V 50 PLAN: 1. We will continue folic acid. 2. Thiamine. 3. Ativan p.r.n. for agitation. 4. Continue Prozac. Nacho Watson M.D. DR: Macario JOB#: [id number] CC:
[2019-01-01 20:00] VITALS: BP 110/69
[2019-01-01] MEDS ORDERED: Morphine Sulfate 2mg/ml Inj(IV/IM USE ONLY) IVP PRN (20:30)
--- NOTE | 2019-01-01 20:40 | NUR ---
TRANSFER TO FLOOR: Patient transferred from Telemetry to Med surg 4E without any incident. Patient was put off tele box and tolerating. No signs of distress noted. Report given to GEORGE York. Belongings list checked with receiving travel med surg rn.
[2019-01-01] MEDS ORDERED: Iron Sucrose 100 MG in NS 55 ML IV SCH ×4 (21:00)
--- NOTE | 2019-01-01 21:10 | NUR ---
NURSE NOTES: Patient transferred from Telemetry. Received report from GEORGE Duenas. Patient is awake, ANO x 4. On room air with no signs of distress or SOB. IV intact and patent. No C/O pain at this time. VSS. Bed locked and in lowest position. Call light in reach. Will continue to monitor the patient.
--- NOTE | 2019-01-01 22:35 | General Progress Note ---
Assessment/Plan Problem List: (1) Pancreatitis ICD Codes: K85.90 - Acute pancreatitis without necrosis or infection, unspecified SNOMED: [id number] Qualifiers: Qualified Codes: K85.90 - Acute pancreatitis without necrosis or infection, unspecified (2) Abdominal pain ICD Codes: R10.9 - Unspecified abdominal pain SNOMED: [id number] Qualifiers: Qualified Codes: R10.31 - Right lower quadrant pain Status: stable, progressing Assessment/Plan: pancreatits is improving advance diet per gi afebrile check lipase Subjective ROS Limited/Unobtainable: Yes Allergies: Coded Allergies: No Known Allergies (Unverified , 12/29/18) Objective Last 24 Hour Vital Signs Date Time Temp Pulse Resp B/P (MAP) Pulse Ox O2 Delivery O2 Flow Rate FiO2 01/01/19 21:00 Room Air 01/01/19 20:00 98.2 84 19 110/69 (83) 98 01/01/19 16:00 78 01/01/19 16:00 98.1 83 19 116/71 (86) 99 01/01/19 12:00 79 01/01/19 12:00 98.1 87 19 110/78 (89) 100 01/01/19 09:00 Room Air 01/01/19 08:00 97 01/01/19 08:00 98.5 87 20 103/67 (79) 97 01/01/19 04:00 80 01/01/19 04:00 98.2 80 20 107/72 (84) 97 01/01/19 00:00 84 01/01/19 00:00 98.4 99 20 107/67 (80) 100 Intake and Output 12/31/18 01/01/19 19:00 07:00 Intake Total 280 ml Balance 280 ml Intake Oral 280 ml # Voids 3 2 Laboratory Tests 01/01/19 05:30: White Blood Count 8.4, Red Blood Count 2.94L, Hemoglobin 7.0L, Hematocrit 23.6L , Mean Corpuscular Volume 80, Mean Corpuscular Hemoglobin 24.0L, Mean Corpuscular Hemoglobin Concent 29.9L, Red Cell Distribution Width 20.4H, Platelet Count 362, Mean Platelet Volume 6.8, Neutrophils (%) (Auto) , Lymphocytes (%) (Auto) , Monocytes (%) (Auto) , Eosinophils (%) (Auto) , Basophils (%) (Auto) , Differential Total Cells Counted 100, Neutrophils % ( Manual) 51, Lymphocytes % (Manual) 26, Monocytes % (Manual) 13H, Eosinophils % ( Manual) 8H, Basophils % (Manual) 2, Band Neutrophils 0, Platelet Estimate Adequate, Platelet Morphology Normal, Hypochromasia 3+, Anisocytosis 2+, Sodium Level 139, Potassium Level 3.6, Chloride Level 107, Carbon Dioxide Level 22, Anion Gap 10, Blood Urea Nitrogen 6L, Creatinine 0.8, Estimat Glomerular Filtration Rate > 60, Glucose Level 107H, Calcium Level 8.1L, Phosphorus Level 2.5, Magnesium Level 1.4L, Total Bilirubin 1.3H, Direct Bilirubin 0.8H, Aspartate Amino Transf (AST/SGOT) 284H, Alanine Aminotransferase (ALT/SGPT) 134H , Alkaline Phosphatase 141H, C-Reactive Protein, Quantitative 5.9H, Pro-B-Type Natriuretic Peptide 106, Total Protein 6.2L, Albumin 2.6L, Globulin 3.6, Albumin /Globulin Ratio 0.7L, Amylase Level 90, Lipase 1462H Height (Feet): 5 Height (Inches): 6.00 Weight (Pounds): 126 Neck: supple Cardiovascular: normal rate Respiratory/Chest: lungs clear Abdomen: soft Elton Watson MD Jan 01, 2019 22:35
--- NOTE | 2019-01-01 22:38 | Surgery Progress Note ---
Surgery Progress Note Subjective Symptoms: improved, pain absent, tolerating diet, voiding well, passing flatus Objective Last 24 Hour Vital Signs Date Time Temp Pulse Resp B/P (MAP) Pulse Ox O2 Delivery O2 Flow Rate FiO2 01/01/19 21:00 Room Air 01/01/19 20:00 98.2 84 19 110/69 (83) 98 01/01/19 16:00 78 01/01/19 16:00 98.1 83 19 116/71 (86) 99 01/01/19 12:00 79 01/01/19 12:00 98.1 87 19 110/78 (89) 100 01/01/19 09:00 Room Air 01/01/19 08:00 97 01/01/19 08:00 98.5 87 20 103/67 (79) 97 01/01/19 04:00 80 01/01/19 04:00 98.2 80 20 107/72 (84) 97 01/01/19 00:00 84 01/01/19 00:00 98.4 99 20 107/67 (80) 100 I&O Intake and Output 12/31/18 01/01/19 19:00 07:00 Intake Total 280 ml Balance 280 ml Intake Oral 280 ml # Voids 3 2 Cardiovascular: RSR Respiratory: clear Abdomen: soft, non-tender, present bowel sounds, non-distended Extremities: no edema, no cyanosis Laboratory Tests Test 01/01/19 05:30 White Blood Count 8.4 K/UL (4.8-10.8) Red Blood Count 2.94 M/UL (4.20-5.40) L Hemoglobin 7.0 G/DL (12.0-16.0) L Hematocrit 23.6 % (37.0-47.0) L Mean Corpuscular Volume 80 FL (80-99) Mean Corpuscular Hemoglobin 24.0 PG (27.0-31.0) L Mean Corpuscular Hemoglobin Concent 29.9 G/DL (32.0-36.0) L Red Cell Distribution Width 20.4 % (11.6-14.8) H Platelet Count 362 K/UL (150-450) Mean Platelet Volume 6.8 FL (6.5-10.1) Neutrophils (%) (Auto) % (45.0-75.0) Lymphocytes (%) (Auto) % (20.0-45.0) Monocytes (%) (Auto) % (1.0-10.0) Eosinophils (%) (Auto) % (0.0-3.0) Basophils (%) (Auto) % (0.0-2.0) Differential Total Cells Counted 100 Neutrophils % (Manual) 51 % (45-75) Lymphocytes % (Manual) 26 % (20-45) Monocytes % (Manual) 13 % (1-10) H Eosinophils % (Manual) 8 % (0-3) H Basophils % (Manual) 2 % (0-2) Band Neutrophils 0 % (0-8) Platelet Estimate Adequate Platelet Morphology Normal Hypochromasia 3+ Anisocytosis 2+ Sodium Level 139 MMOL/L (136-145) Potassium Level 3.6 MMOL/L (3.5-5.1) Chloride Level 107 MMOL/L (98-107) Carbon Dioxide Level 22 MMOL/L (21-32) Anion Gap 10 mmol/L (5-15) Blood Urea Nitrogen 6 mg/dL (7-18) L Creatinine 0.8 MG/DL (0.55-1.30) Estimat Glomerular Filtration Rate > 60 mL/min (>60) Glucose Level 107 MG/DL (74-106) H Calcium Level 8.1 MG/DL (8.5-10.1) L Phosphorus Level 2.5 MG/DL (2.5-4.9) Magnesium Level 1.4 MG/DL (1.8-2.4) L Total Bilirubin 1.3 MG/DL (0.2-1.0) H Direct Bilirubin 0.8 MG/DL (0.0-0.3) H Aspartate Amino Transf (AST/SGOT) 284 U/L (15-37) H Alanine Aminotransferase (ALT/SGPT) 134 U/L (12-78) H Alkaline Phosphatase 141 U/L (46-116) H C-Reactive Protein, Quantitative 5.9 mg/dL (0.00-0.90) H Pro-B-Type Natriuretic Peptide 106 pg/mL (0-125) Total Protein 6.2 G/DL (6.4-8.2) L Albumin 2.6 G/DL (3.4-5.0) L Globulin 3.6 g/dL Albumin/Globulin Ratio 0.7 (1.0-2.7) L Amylase Level 90 U/L (25-115) Lipase 1462 U/L (73-393) H Plan Problems: (1) Abdominal pain Assessment & Plan: 28-year-old female with abdominal pain. Epigastric region clinically correlating to pancreatitis. Ultrasound noted and no stones identified. Examination of the fairly benign. Labs noted. Leukocytosis potentially from UTI versus pancreatitis. pain improved no complaints tolerating diet feels much better labs likely from pancreatitis (ex lft's No acute surgical intervention planned at this time. diet as tolerated IV fluids Pain regimen We will monitor abdominal exam Trend labs We will follow with recommendations thank you for allowing me to participate in patient's care d/c planning alcohol cessation (2) Pancreatitis Gildardo Wilson Jan 01, 2019 22:38
[2019-01-02] VITALS: BP 107/79
--- NOTE | 2019-01-02 00:10 | General Progress Note ---
Assessment/Plan Status: stable, progressing Assessment/Plan: Assessment - EtOH pancreatitis - abnormal LFT presumed due to pancreatitis - abnormal electolytes Recommendations - follow labs - follow exam - OOB - MRI friday if lab abnormalities remain - avoid any and all alcohol Subjective Allergies: Coded Allergies: No Known Allergies (Unverified , 12/29/18) Subjective above noted abd pain improved tolerating solids po Objective Last 24 Hour Vital Signs Date Time Temp Pulse Resp B/P (MAP) Pulse Ox O2 Delivery O2 Flow Rate FiO2 01/01/19 21:00 Room Air 01/01/19 20:00 98.2 84 19 110/69 (83) 98 01/01/19 16:00 78 01/01/19 16:00 98.1 83 19 116/71 (86) 99 01/01/19 12:00 79 01/01/19 12:00 98.1 87 19 110/78 (89) 100 01/01/19 09:00 Room Air 01/01/19 08:00 97 01/01/19 08:00 98.5 87 20 103/67 (79) 97 01/01/19 04:00 80 01/01/19 04:00 98.2 80 20 107/72 (84) 97 Intake and Output 01/01/19 01/02/19 19:00 07:00 Intake Total 400 ml Balance 400 ml Intake Oral 400 ml # Voids 4 # Bowel Movements 1 Laboratory Tests 01/01/19 05:30: White Blood Count 8.4, Red Blood Count 2.94L, Hemoglobin 7.0L, Hematocrit 23.6L , Mean Corpuscular Volume 80, Mean Corpuscular Hemoglobin 24.0L, Mean Corpuscular Hemoglobin Concent 29.9L, Red Cell Distribution Width 20.4H, Platelet Count 362, Mean Platelet Volume 6.8, Neutrophils (%) (Auto) , Lymphocytes (%) (Auto) , Monocytes (%) (Auto) , Eosinophils (%) (Auto) , Basophils (%) (Auto) , Differential Total Cells Counted 100, Neutrophils % ( Manual) 51, Lymphocytes % (Manual) 26, Monocytes % (Manual) 13H, Eosinophils % ( Manual) 8H, Basophils % (Manual) 2, Band Neutrophils 0, Platelet Estimate Adequate, Platelet Morphology Normal, Hypochromasia 3+, Anisocytosis 2+, Sodium Level 139, Potassium Level 3.6, Chloride Level 107, Carbon Dioxide Level 22, Anion Gap 10, Blood Urea Nitrogen 6L, Creatinine 0.8, Estimat Glomerular Filtration Rate > 60, Glucose Level 107H, Calcium Level 8.1L, Phosphorus Level 2.5, Magnesium Level 1.4L, Total Bilirubin 1.3H, Direct Bilirubin 0.8H, Aspartate Amino Transf (AST/SGOT) 284H, Alanine Aminotransferase (ALT/SGPT) 134H , Alkaline Phosphatase 141H, C-Reactive Protein, Quantitative 5.9H, Pro-B-Type Natriuretic Peptide 106, Total Protein 6.2L, Albumin 2.6L, Globulin 3.6, Albumin /Globulin Ratio 0.7L, Amylase Level 90, Lipase 1462H Height (Feet): 5 Height (Inches): 6.00 Weight (Pounds): 126 Objective Thin AA woman NCAT supple CTA RR Abd soft, (+) epigastric TTP no edema Valerie Martin MD Jan 02, 2019 00:10
[2019-01-02 04:00] VITALS: BP 108/74
--- NOTE | 2019-01-02 07:23 | NUR ---
HAND-OFF: Report given to GEORGE Bernal.
[2019-01-02 07:46] VITALS: BP 114/74
--- NOTE | 2019-01-02 07:52 | NUR ---
NURSE NOTES: received pt awake alert, no distress. call light within reach. will monitor. no c/o pain
[2019-01-02 08:46] LABS: ANION GAP 9 mmol/L (5-15); BLOOD UREA NITROGEN 1 mg/dL (7-18); CALCIUM 8.5 MG/DL (8.5-10.1); CARBON DIOXIDE 25 MMOL/L (21-32); CHLORIDE 105 MMOL/L (98-107); CREATININE 0.7 MG/DL (0.55-1.30); POTASSIUM 3.7 MMOL/L (3.5-5.1); SODIUM 139 MMOL/L (136-145)
[2019-01-02 08:53] LABS: ALANINE AMINOTRANSFERASE 122 U/L (12-78); ALBUMIN 2.8 G/DL (3.4-5.0); ALBUMIN/GLOBULIN RATIO 0.7 (1.0-2.7); ALKALINE PHOSPHATASE 149 U/L (46-116); ASPARTATE AMINO TRANSFERASE 157 U/L (15-37); BILIRUBIN,TOTAL 0.9 MG/DL (0.2-1.0); PHOSPHORUS 2.8 MG/DL (2.5-4.9)
[2019-01-02] MEDS ORDERED: Thiamine 100mg tab ORAL SCH (09:00)
--- NOTE | 2019-01-02 09:09 | NUR ---
NURSE NOTES: Pt asking for dcp pt states "they said im good to go" explained to pt re current orders and need GI clearance. also informed pt re hemoglobin trend, pt still refusing. received order from Dr Steven md made aware pt is refusing and will continue to refuse. rn spoke in person with dr Adames and not clearing the pt at this time. per dr Adames "she can go ama if she wants but not cleared at this time" explaind to pt that she is not cleared yet, pt willing to do labs at this time but still wont do transfusion, r/b explained. no active bleeding at this time. pt states she has hx anemia.
--- NOTE | 2019-01-02 09:22 | General Progress Note ---
Assessment/Plan Status: stable, progressing Assessment/Plan: Assessment/Plan Status: stable, progressing Assessment/Plan: Assessment - EtOH pancreatitis - abnormal LFT presumed due to pancreatitis - abnormal electolytes Recommendations - follow labs - follow exam - OOB - MRI friday if lab abnormalities remain - avoid any and all alcohol -wants to go home>> ok to dc with close follow up Subjective ROS Limited/Unobtainable: Yes Allergies: Coded Allergies: No Known Allergies (Unverified , 12/29/18) Subjective no abd pain Objective Last 24 Hour Vital Signs Date Time Temp Pulse Resp B/P (MAP) Pulse Ox O2 Delivery O2 Flow Rate FiO2 01/02/19 07:46 98.6 80 18 114/74 (87) 99 01/02/19 07:14 Room Air 01/02/19 04:00 98.6 87 18 108/74 (85) 99 01/02/19 00:00 97.9 91 18 107/79 (88) 99 01/01/19 21:00 Room Air 01/01/19 20:00 98.2 84 19 110/69 (83) 98 01/01/19 16:00 78 01/01/19 16:00 98.1 83 19 116/71 (86) 99 01/01/19 12:00 79 01/01/19 12:00 98.1 87 19 110/78 (89) 100 Intake and Output 01/01/19 01/02/19 19:00 07:00 Intake Total 400 ml Balance 400 ml Intake Oral 400 ml # Voids 4 2 # Bowel Movements 1 Laboratory Tests 01/02/19 08:25: White Blood Count [Pending], Red Blood Count [Pending], Hemoglobin [Pending], Hematocrit [Pending], Mean Corpuscular Volume [Pending], Mean Corpuscular Hemoglobin [Pending], Mean Corpuscular Hemoglobin Concent [Pending], Red Cell Distribution Width [Pending], Platelet Count [Pending], Mean Platelet Volume [ Pending], Neutrophils (%) (Auto) [Pending], Lymphocytes (%) (Auto) [Pending], Monocytes (%) (Auto) [Pending], Eosinophils (%) (Auto) [Pending], Basophils (%) (Auto) [Pending], Sodium Level 139, Potassium Level 3.7, Chloride Level 105, Carbon Dioxide Level 25, Anion Gap 9, Blood Urea Nitrogen 1L, Creatinine 0.7, Estimat Glomerular Filtration Rate > 60, Glucose Level 125H, Calcium Level 8.5, Phosphorus Level 2.8, Magnesium Level 2.4, Total Bilirubin 0.9, Aspartate Amino Transf (AST/SGOT) 157H, Alanine Aminotransferase (ALT/SGPT) 122H, Alkaline Phosphatase 149H, Total Protein 6.8, Albumin 2.8L, Globulin 4.0, Albumin/ Globulin Ratio 0.7L, Lipase 1057H Height (Feet): 5 Height (Inches): 6.00 Weight (Pounds): 126 General Appearance: alert EENT: normal ENT inspection Neck: normal alignment Cardiovascular: normal rate Respiratory/Chest: lungs clear Abdomen: normal bowel sounds, non tender, soft Extremities: non-tender Tolu Adames MD Jan 02, 2019 09:21
[2019-01-02 09:38] LABS: HEMATOCRIT 24.2 % (37.0-47.0); HEMOGLOBIN 7.4 G/DL (12.0-16.0); MEAN CORPUSCULAR VOLUME 79 FL (80-99); PLATELET COUNT 488 K/UL (150-450); RED BLOOD COUNT 3.05 M/UL (4.20-5.40); RED CELL DISTRIBUTION WIDTH 20.3 % (11.6-14.8)
--- NOTE | 2019-01-02 09:38 | Nephrology Progress Note ---
Assessment/Plan Problem List: (1) GENARO (acute kidney injury) Assessment: Cr wnl now (2) Acute hypokalemia (3) Pancreatitis (4) Anemia, iron deficiency (5) UTI (urinary tract infection) Assessment Pancreatitis GENARO , presents with Cr of 1.7 HypoKalemia Electrolyte imbalance Anemia UTI Pancreatitis ETOH Abuse Plan Med surg tolerating PO IV Iron PO KCL PO Thiamine Anemia piña GI eval ? DC planning? Subjective ROS Limited/Unobtainable: No Objective Objective Last 24 Hour Vital Signs Date Time Temp Pulse Resp B/P (MAP) Pulse Ox O2 Delivery O2 Flow Rate FiO2 01/02/19 07:46 98.6 80 18 114/74 (87) 99 01/02/19 07:14 Room Air 01/02/19 04:00 98.6 87 18 108/74 (85) 99 01/02/19 00:00 97.9 91 18 107/79 (88) 99 01/01/19 21:00 Room Air 01/01/19 20:00 98.2 84 19 110/69 (83) 98 01/01/19 16:00 78 01/01/19 16:00 98.1 83 19 116/71 (86) 99 01/01/19 12:00 79 01/01/19 12:00 98.1 87 19 110/78 (89) 100 Intake and Output 01/01/19 01/02/19 19:00 07:00 Intake Total 400 ml Balance 400 ml Intake Oral 400 ml # Voids 4 2 # Bowel Movements 1 Laboratory Tests 01/02/19 08:25: White Blood Count [Pending], Red Blood Count [Pending], Hemoglobin [Pending], Hematocrit [Pending], Mean Corpuscular Volume [Pending], Mean Corpuscular Hemoglobin [Pending], Mean Corpuscular Hemoglobin Concent [Pending], Red Cell Distribution Width [Pending], Platelet Count [Pending], Mean Platelet Volume [ Pending], Neutrophils (%) (Auto) [Pending], Lymphocytes (%) (Auto) [Pending], Monocytes (%) (Auto) [Pending], Eosinophils (%) (Auto) [Pending], Basophils (%) (Auto) [Pending], Sodium Level 139, Potassium Level 3.7, Chloride Level 105, Carbon Dioxide Level 25, Anion Gap 9, Blood Urea Nitrogen 1L, Creatinine 0.7, Estimat Glomerular Filtration Rate > 60, Glucose Level 125H, Calcium Level 8.5, Phosphorus Level 2.8, Magnesium Level 2.4, Total Bilirubin 0.9, Aspartate Amino Transf (AST/SGOT) 157H, Alanine Aminotransferase (ALT/SGPT) 122H, Alkaline Phosphatase 149H, Total Protein 6.8, Albumin 2.8L, Globulin 4.0, Albumin/ Globulin Ratio 0.7L, Lipase 1057H Height (Feet): 5 Height (Inches): 6.00 Weight (Pounds): 126 General Appearance: no apparent distress Abdomen: soft Objective no change Fermin Osorio MD Jan 02, 2019 09:38
[2019-01-02 11:56] VITALS: BP 114/76
--- NOTE | 2019-01-02 14:21 | NUR ---
NURSE NOTES: pt left in stable condition, with all belongings, iv removed from right antecubital area and left forearm, no bleeding. pt tolerated well. instructed on low fat diet and avoid alcohol. pt verbalized understanding. Kami Charge nurse received dc order from dr Watson
[2019-01-02] MEDS ORDERED: NS 275ml ONE (14:22)
[2019-01-02] MEDS ORDERED: Tubing IV Secondary IV ONE (14:22)
--- NOTE | 2019-01-05 09:29 | Discharge Summary ---
Discharge Summary Discharge Summary _ DATE OF ADMISSION: 12/29/2018 DATE OF DISCHARGE: 01/02/2019 DISCHARGED BY: Dr adams REASON FOR ADMISSION: 28 years old female with no significant past medical history, presented to emergency department , complaining of progressive abdominal pain for one week. Patient initially had pain in the lower middle abdomen, which over time progressed to flank area bilaterally. Patient had multiply episodes of nausea and vomiting. Patient denied fever and chills. Patient reported recent heavy alcohol use. She denied vaginal bleeding or vaginal discharge. She denied dysuria. However she reported urinary frequency and urgency. Patient reported that while she attempted to start urinating , she began to have exacerbation of her lower abdominal pain. Patient also reported constipation. Last bowel movement was about 1 week ago. She denied prior blood in the stool or in the vomiting. No significant history of nonsteroidal anti-inflammatory medication use. She denied back pain. Upon evaluation vital signs revealed tachycardia with heart rate 150 .Patient was afebrile, pulse oximetry was stable on room air. Laboratory work-up revealed leukocytosis WBC 16.5, hemoglobin 9.8 , hematocrit 31.7 platelet count 275. Potassium 2.5, sodium 131 . BUN 19 , creatinine 1.7 . Glucose 116. Total bilirubin 2.1 ,direct bilirubin 1.2 . AST 92, ALT 57 a, lkaline phosphatase 135. Lipase over 2000 Urinalysis revealed gross evidence of urinary tract infection. Urine test was negative. CT of the abdomen and pelvis revealed findings concerning for acute pancreatitis. Enlarged fatty liver. 3.8 cm right ovarian cyst , almost certainly benign. Chest x-ray revealed no acute process. In the emergency department patient received IV bolus with normal saline, provided with antiemetic and analgesic. Potassium was replaced. Patient started on empiric antibiotic . Patient subsequently admitted to medical surgical floor for further management. CONSULTANTS: ID specialist Dr. William GI specialist Dr. Adames charge histotechnologist Dr. Osorio rail walker/oncologist Dr. Harris surgery Dr. Wilson psychiatrist Dr. Watson [facility]RSE: Patient admitted to medical surgical floor. Patient started on the IV fluids and empiric antibiotic . Patient initially was kept n.p.o. GI specialist followed. Abdominal ultrasound revealed no evidence of gallstones. No evidence of dilated bile ducts. Large accessory splenule. Fatty liver. Apparent hypoechoic pancreas. Surgeon followed. Serial abdominal exams were stable. No need for any surgical intervention at this time. LFT and lipase were closely monitored , trending down . Prior to discharge lipase 1057. AST and ALT initially increased and then started to trend down . GGT 615. TSH within normal limits. Bowel regimen instituted. Constipation resolved. Pain management was addressed as needed. Antiemetic provided as needed. Patient started on clear liquid diet and was advanced as tolerated. Patient was able to tolerate diet. Patient was counseled to avoid any alcohol. [employer] Counselor followed. Renal parameters and electrolytes were closely and magnesium were replaced. Nephrotoxins were avoided. Acute kidney injury resolved ; prior to discharge creatinine 0.7 , BUN 1. Upon discharge, sodium 139, potassium 3.7, magnesium 2.4. Patient started on folic acid thiamine. Anemia work-up revealed evidence of iron deficiency anemia . Patient started on IV iron GI prophylaxis provided. Patient completed treatment with antibiotic for pyuria/ UTI. Symptoms resolved. Urine culture revealed strep group B with 20 to 40 K and mixed gram-positive organisms with 50-60 K . Psychiatrist followed. Patient started on Prozac. Anxiolytic were on board as needed. Reality orientation and supportive therapy provided. Patient clinically stabilized. Patient was able to tolerate diet. Patient was stable for discharge home. FINAL DIAGNOSES: Possible sepsis vs SIRS Acute alcoholic pancreatitis Pyuria/UTI, s/p treatment Abnormal LFT, presumed to be due to acute pancreatitis Acute kidney injury Acute hypokalemia -resolved Iron deficiency anemia Fatty liver Anxiety disorder ETOH abuse. DISCHARGE MEDICATIONS: See Medication Reconciliation list. DISCHARGE INSTRUCTIONS: Patient was discharged home. Patient was strongly advised on alcohol cessation. I have been assigned to dictate discharge summary for this account. I was not involved in the patient's management. Niki Greene NP Jan 05, 2019 09:29
== END 2019-01-02 14:23 | disposition home or self-care (01) | DRG 871 ==
LOC: EMR 20:15 → EDBEDREQSVC 20:38 → 2E 21:28 → EDBEDREQ 22:40 → 4E 01-01 21:02
DX: A41.9 Sepsis, unspecified organism (principal); K85.20 Alcohol induced acute pancreatitis without necrosis or infection; N39.0 Urinary tract infection, site not specified; N17.9 Acute kidney failure, unspecified; F41.9 Anxiety disorder, unspecified; D50.9 Iron deficiency anemia, unspecified; E87.6 Hypokalemia; K76.0 Fatty (change of) liver, not elsewhere classified; F10.20 Alcohol dependence, uncomplicated
CPT/HCPCS: 36415; 71045; 74176; 76700; 80053; 80061; 81003; 81025; 82150; 82248; 82607; 82728; 82746; 82977; 83036; 83540; 83550; 83605; 83690; 83735; 83880; 84100; 84443; 84550; 85007; 85025; 85060; 85610; 85730; 86140; 86850; 86900; 86901; 87086; 93005; 96361; 96365; 96367; 96375; 99285; J2405; J7030; J8499

== ENCOUNTER 2019-11-16 19:53 | Emergency (ER) | payer SELFPAY ==
[~2019-11-16] VITALS: Ht 167.6 cm; Wt 46.3 kg
--- NOTE | 2019-11-16 20:00 | NUR ---
ED Nurse Note: Patient walked into the ED from home with c/o loss of appetite, vomiting and lethargy onset 1 month. Triage HR at 120's. Patient has hx of pancreatitis. Patient mentions needing blood transfusions in the past but refusing due to her yarsanism. Patient is AAOx4 and ambulatory. PAtient denies chest pain, /SOB, fever and chills. Patient placed on monitor bed
--- NOTE | 2019-11-16 20:05 | NUR ---
ED Nurse Note: ERMD at bedside
--- NOTE | 2019-11-16 20:15 | NUR ---
ED Nurse Note: Blood specimen sent to lab
[2019-11-16 20:34] LABS: EOSINOPHILS % (AUTO) 0.5 % (0.0-3.0); HEMATOCRIT 34.7 % (37.0-47.0); HEMOGLOBIN 10.8 G/DL (12.0-16.0); LYMPHOCYTES % (AUTO) 41.6 % (20.0-45.0); MEAN CORPUSCULAR VOLUME 91 FL (80-99); MONOCYTES % (AUTO) 7.2 % (1.0-10.0); NEUTROPHILS % (AUTO) 49.7 % (45.0-75.0); PLATELET COUNT 476 K/UL (150-450); RED BLOOD COUNT 3.79 M/UL (4.20-5.40); RED CELL DISTRIBUTION WIDTH 18.2 % (11.6-14.8); WHITE BLOOD COUNT 8.7 K/UL (4.8-10.8)
[2019-11-16 20:38] LABS: INR 1.3 (0.9-1.1)
[2019-11-16 20:39] VITALS: BP 118/76
[2019-11-16 20:50] LABS: ALANINE AMINOTRANSFERASE 75 U/L (12-78); ALBUMIN 2.5 G/DL (3.4-5.0); ALBUMIN/GLOBULIN RATIO 0.6 (1.0-2.7); ALKALINE PHOSPHATASE 174 U/L (46-116); ANION GAP 11 mmol/L (5-15); ASPARTATE AMINO TRANSFERASE 174 U/L (15-37); BILIRUBIN,TOTAL 1.8 MG/DL (0.2-1.0); BLOOD UREA NITROGEN 4 mg/dL (7-18); CALCIUM 8.2 MG/DL (8.5-10.1); CARBON DIOXIDE 31 MMOL/L (21-32); CHLORIDE 97 MMOL/L (98-107); CREATININE 0.7 MG/DL (0.55-1.30); SODIUM 138 MMOL/L (136-145)
[2019-11-16 20:52] LABS: POTASSIUM 2.3 MMOL/L (3.5-5.1)
[2019-11-16] MEDS ORDERED: POTASSIUM CHLO20 ME2 ORAL (22:52)
[2019-11-16] MEDS ORDERED: ONDANSETRON ODT4 MG BC (22:52)
[2019-11-16] MEDS ORDERED: FAMOTIDINE20 MG ORAL (22:52)
--- NOTE | 2019-11-16 23:00 | Emergency Room Report ---
History of Present Illness General Chief Complaint: Vomiting Present Illness Allergies: Coded Allergies: No Known Allergies (Unverified , 12/29/18) COVID-19 Screening Contact w/high risk pt: No Experienced COVID-19 symptoms?: Yes COVID-19 Testing performed PIZZA CHEF: No Patient History Last Menstrual Period: 10/26/2019 Nursing Documentation-PMH Hx Cardiac Problems: No Hx Cancer: No Hx Gastrointestinal Problems: No Hx Neurological Problems: No Physical Exam Vital Signs Date Time Temp Pulse Resp B/P (MAP) Pulse Ox O2 Delivery O2 Flow Rate FiO2 11/16/19 19:56 98.8 138 18 118/76 (90) 94 Room Air Medical Decision Making Diagnostic Impression: Primary Impression: Hypokalemia Additional Impression: Gastritis EKG Diagnostic Results Rate: tachycardiac Rhythm: NSR ST Segments: no acute changes ASA given to the pt in ED: No Rhythm Strip Diag. Results EP Interpretation: yes Rhythm: NSR, no PVC's, no ectopy Last Vital Signs Date Time Temp Pulse Resp B/P (MAP) Pulse Ox O2 Delivery O2 Flow Rate FiO2 11/16/19 20:39 105 20 Room Air 11/16/19 20:39 98.5 118/76 98 Disposition: HOME, SELF-CARE Condition: Stable Scripts Famotidine* (Pepcid 20mg tablet*) 20 Mg Tablet 20 MG ORAL DAILY, #30 TAB 0 Refills Prov: Dank Sheth MD 11/16/19 Ondansetron Odt* (ZOFRAN ODT*) 4 Mg Tab.rapdis 4 MG BC EVERY 6 HOURS PRN for Nausea & Vomiting, #20 TAB 0 Refills Prov: Dank Sheth MD 11/16/19 Potassium Chloride (POTASSIUM CHLORIDE) 20 Meq Packet 20 MEQ ORAL TWICE A DAY for 7 Days, #60 PKT 0 Refills Prov: Dank Sheth MD 11/16/19 Referrals: NOT CHOSEN IPA/,REFERRING (PCP) [facility] Patient Instructions: Muscle Cramps and Spasms, [id number], Gastritis, Adult, [id number] Dank Sheth MD Nov 16, 2019 23:00
--- NOTE | 2019-11-16 23:05 | NUR ---
ER DISCHARGE NOTE: Patient is cleared to be discharged per ERMD, pt is aox4, on room air, with stable vital signs. pt was given dc and prescription instructions, pt was able to verbalize understanding, pt id band and iv site removed without complications. pt is able to ambulate with steady gait. pt took all belongings.
[2019-11-16 23:10] VITALS: BP 132/78
== END 2019-11-16 23:10 | disposition home or self-care (01) ==
LOC: EMR 20:15
DX: E87.6 Hypokalemia (principal); K29.70 Gastritis, unspecified, without bleeding; R00.0 Tachycardia, unspecified
CPT/HCPCS: 36415; 80053; 82248; 83690; 85025; 85610; 85730; 86850; 86900; 86901; 93005; 96361; 96374; 96375; 99284; J2405; J7030; S0028; J8499

== ENCOUNTER 2020-01-07 18:53 | Inpatient (IN) | payer MEDICAID ==
[~2020-01-07] VITALS: Ht 167.6 cm; Wt 43.5 kg
[~2020-01-07 18:53] MED LIST: FAMOTIDINE20 MG ORAL; ONDANSETRON ODT4 MG BC; POTASSIUM CHLO20 ME2 ORAL
[2020-01-07 19:05] VITALS: BP 109/78
[2020-01-07] MEDS ORDERED: Omnipaque-300 100ml vial INJ PRN (19:30)
--- NOTE | 2020-01-07 19:34 | Emergency Room Report ---
History of Present Illness General Chief Complaint: Generalized Weakness Source: Patient Present Illness HPI 29-year-old female with history of pancreatitis due to alcohol intake she appears to be jaundiced with scleral icterus here complaining of several days of rapid heartbeat, and feeling weak. Denies any abdominal pain at this time. Complains of nausea vomiting denies any bloody emesis. Denies diarrhea constipation. Also complains of a dry cough for the past few days. Denies fever and chills, sore throat and congestion. Reports that she no longer drinks hard liquor however continues to drink wine and beer. Also smokes tobacco and marijuana on a daily basis. Patient also reports that she has had significant weight loss that she is unable to keep food down. Denies any pleuritic chest pain, headache and dizziness. Denies shortness of breath at this time. Denies . Allergies: Coded Allergies: No Known Allergies (Unverified , 12/29/18) COVID-19 Screening Contact w/high risk pt: No Experienced COVID-19 symptoms?: Yes COVID-19 Testing performed S[employer] TECHNICIAN: No Patient History Past Medical History: see triage record Past Surgical History: none Pertinent Family History: none Social History: Reports: alcohol use Now: No Immunizations: UTD Reviewed Nursing Documentation: PMH: Agreed; PSxH: Agreed Nursing Documentation-PMH Hx Cardiac Problems: Yes - irregular heart beat Hx Cancer: No Hx Gastrointestinal Problems: No - gastritis Hx Neurological Problems: No Review of Systems All Other Systems: negative except mentioned in HPI Physical Exam Vital Signs Date Time Temp Pulse Resp B/P (MAP) Pulse Ox O2 Delivery O2 Flow Rate FiO2 01/07/20 18:59 98.2 140 20 112/79 (90) 98 Room Air Sp02 EP Interpretation: abnormal - elevated HR General Appearance: no apparent distress, alert, GCS 15, non-toxic Head: normocephalic, atraumatic Eyes: bilateral eye PERRL, bilateral eye scleral icterus ENT: hearing grossly normal, normal pharynx, no angioedema, normal voice Neck: full range of motion, supple/symm/no masses Respiratory: chest non-tender, lungs clear, normal breath sounds, speaking full sentences Cardiovascular #1: regular rate, rhythm, no edema Gastrointestinal: normal bowel sounds, non tender, soft, no mass, no organomegaly, no peritonitis, no bruit, non-distended, no guarding, no hernia, no pulsatile mass, no rebound Genitourinary: no CVA tenderness Musculoskeletal: back normal, no calf tenderness Neurologic: alert, motor strength/tone normal, oriented x3, sensory intact, responsive, speech normal Psychiatric: judgement/insight normal, memory normal, mood/affect normal, no suicidal/homicidal ideation Skin: jaundice Lymphatic: no adenopathy Medical Decision Making PA Attestation All diagnoses and treatment plans were reviewed and discussed with my supervis ing physician Dr. Bunn Diagnostic Impression: Primary Impression: Tachycardia ER Course 29-year-old female with history of pancreatitis due to alcohol intake she appears to be jaundiced with scleral icterus here complaining of several days of rapid heartbeat, and feeling weak. Denies any abdominal pain at this time. Complains of nausea vomiting denies any bloody emesis. Denies diarrhea constipation. Also complains of a dry cough for the past few days. Denies fever and chills, sore throat and congestion. Reports that she no longer drinks hard liquor however continues to drink wine and beer. Also smokes tobacco and marijuana on a daily basis. Patient also reports that she has had significant weight loss that she is unable to keep food down. Denies any pleuritic chest pain, headache and dizziness. Denies shortness of breath at this time. Denies . Ddx considered but are not limited to: SVT, tachycardia, hypokalemia, appen dicitis, pancreatitis, [place] Vital signs: are WNL, pt. is afebrile H&PE are most consistent with: tachycardia ORDERS: abdominal CT, abdominal pain set, EKG, troponin ED INTERVENTIONS: NS bolus, Phenergan, Pepcid I signed out the patient to Dr. Bunn at 8PM EKG Diagnostic Results Rate: tachycardiac Rhythm: other - Tachycardia ST Segments: no acute changes Other Impression No acute ST changes ASA given to the pt in ED: No Chest X-Ray Diagnostic Results Chest X-Ray Diagnostic Results : Chest X-Ray Ordered: Yes # of Views/Limited/Complete: 1 View Indication: Chest Pain EP Interpretation: Yes PA Xray: Interpretation reviewed, by supervising MD, and agrees with findings. Interpretation: no consolidation, no effusion, no pneumothorax, no acute cardiopulmonary disease Impression: No acute disease Electronically Signed by: Rubina Rubio PA-C CT/MRI/US Diagnostic Results CT/MRI/US Diagnostic Results : Imaging Test Ordered: CT abdomen pelvis with contrast Last Vital Signs Date Time Temp Pulse Resp B/P (MAP) Pulse Ox O2 Delivery O2 Flow Rate FiO2 01/07/20 18:59 98.2 140 20 112/79 (90) 98 Room Air Rubina Hamm Jan 07, 2020 19:34
[2020-01-07 19:51] LABS: APPEARANCE,URINE CLOUDY; BILIRUBIN, URINE 3+ (NEGATIVE); GLUCOSE, URINE (UA) NEGATIVE (NEGATIVE); KETONES,URINE 1+ (NEGATIVE); LEUKOCYTE ESTERASE ,URINE 2+ (NEGATIVE); NITRITE,URINE NEGATIVE (NEGATIVE); PH,URINE 5 (4.5-8.0); PROTEIN,URINE 3+ (NEGATIVE); UROBILINOGEN,URINE 12 MG/DL (0.0-1.0)
[2020-01-07 19:53] LABS: COLOR,URINE YELLOW; INR 1.3 (0.9-1.1)
[2020-01-07 19:57] LABS: BASOPHILS % (AUTO) 2.6 % (0.0-2.0); EOSINOPHILS % (AUTO) 0.8 % (0.0-3.0); HEMOGLOBIN 8.9 G/DL (12.0-16.0); LYMPHOCYTES % (AUTO) 42.3 % (20.0-45.0); MEAN CORPUSCULAR VOLUME 103 FL (80-99); MONOCYTES % (AUTO) 7.1 % (1.0-10.0); NEUTROPHILS % (AUTO) 47.1 % (45.0-75.0); PLATELET COUNT 726 K/UL (150-450); WHITE BLOOD COUNT 12.9 K/UL (4.8-10.8)
[2020-01-07 20:13] LABS: ALANINE AMINOTRANSFERASE 45 U/L (12-78); ALBUMIN 1.9 G/DL (3.4-5.0); ALBUMIN/GLOBULIN RATIO 0.3 (1.0-2.7); ALKALINE PHOSPHATASE 240 U/L (46-116); ANION GAP 15 mmol/L (5-15); ASPARTATE AMINO TRANSFERASE 162 U/L (15-37); BILIRUBIN,TOTAL 8.8 MG/DL (0.2-1.0); BLOOD UREA NITROGEN 2 mg/dL (7-18); CALCIUM 8.7 MG/DL (8.5-10.1); CARBON DIOXIDE 25 MMOL/L (21-32); CHLORIDE 92 MMOL/L (98-107); CREATININE 0.8 MG/DL (0.55-1.30); SODIUM 134 MMOL/L (136-145)
[2020-01-07 20:14] LABS: POTASSIUM 2.2 MMOL/L (3.5-5.1)
[2020-01-07] MEDS ORDERED: cefTRIAXone 1 GM in NS 55 ML IVPB ONE (20:15)
[2020-01-07 20:16] LABS: BILIRUBIN,DIRECT 7.6 MG/DL (0.0-0.3)
--- NOTE | 2020-01-07 20:17 | Diagnostic Imaging Report ---
EXAM: XR Chest, 1 View CLINICAL HISTORY: PAIN TECHNIQUE: Frontal view of the chest. COMPARISON: 12/29/18 FINDINGS: Lungs: Clear lungs. Pleural space: Unremarkable. No pneumothorax. Heart: Unremarkable. No cardiomegaly. Mediastinum: Unremarkable. Bones/joints: Unremarkable. Soft tissues: Scattered subcentimeter radiopaque foreign objects within the soft tissues across bilateral mid chest, new from the prior study. IMPRESSION: Clear lungs. Scattered subcentimeter radiopaque foreign objects within the soft tissues across bilateral mid chest, new from the prior study. Please correlate clinically
--- NOTE | 2020-01-07 20:31 | Emergency Room Report ---
Physical Exam Vital Signs Date Time Temp Pulse Resp B/P (MAP) Pulse Ox O2 Delivery O2 Flow Rate FiO2 01/07/20 18:59 98.2 140 20 112/79 (90) 98 Room Air Medical Decision Making Diagnostic Impression: Primary Impression: Tachycardia Additional Impressions: UTI (urinary tract infection) Anemia, iron deficiency Hypokalemia Thrombocytosis Prolonged QT interval ER Course Assumed care of the patient from the previous provider at approximately 2000 hrs. Please refer to initial note for full history and physical exam. Briefly, this is a 29-year-old female history of alcohol abuse, pancreatitis recently diagnosed with hypokalemia but failing to take supplemental potassium presenting with weakness and abdominal pain. Labs show evidence of an acute urinary tract infection and the patient receiving antibiotics. Labs also show severe hypokalemia with a potassium of 2.2, hyponatremia, creatinine within normal limits at 0.8 though elevated AST compared ALT consistent with the patient's alcohol use. Bilirubin significantly elevated. Lipase within normal limits. Tox screen negative. Alcohol positive. Hemoglobin low at 8.9 which the patient states he has a history of. She has thrombocytosis with platelets 726. Patient arrived tachycardic but this is improved after IV fluids. QTC is prolonged at 522. Receiving potassium IV and oral repletion. CT of the abdomen shows pancreatic pseudocyst versus adenoma but no necrosis. Admitted by panel physician, Dr. Bliss. Laboratory Tests Test 01/07/20 19:15 White Blood Count 12.9 K/UL (4.8-10.8) H Red Blood Count 2.90 M/UL (4.20-5.40) L Hemoglobin 8.9 G/DL (12.0-16.0) L Hematocrit 30.0 % (37.0-47.0) L Mean Corpuscular Volume 103 FL (80-99) H Mean Corpuscular Hemoglobin 30.6 PG (27.0-31.0) Mean Corpuscular Hemoglobin Concent 29.6 G/DL (32.0-36.0) L Red Cell Distribution Width 19.0 % (11.6-14.8) H Platelet Count 726 K/UL (150-450) H Mean Platelet Volume 5.9 FL (6.5-10.1) L Neutrophils (%) (Auto) 47.1 % (45.0-75.0) Lymphocytes (%) (Auto) 42.3 % (20.0-45.0) Monocytes (%) (Auto) 7.1 % (1.0-10.0) Eosinophils (%) (Auto) 0.8 % (0.0-3.0) Basophils (%) (Auto) 2.6 % (0.0-2.0) H Prothrombin Time 14.3 SEC (9.30-11.50) H Prothrombin Time INR 1.3 (0.9-1.1) H Activated Partial Thromboplast Time 27 SEC (23-33) Urine Color Yellow Urine Appearance Cloudy Urine pH 5 (4.5-8.0) Urine Specific [place] 1.020 (1.005-1.035) Urine Protein 3+ (NEGATIVE) H Urine Glucose (UA) Negative (NEGATIVE) Urine Ketones 1+ (NEGATIVE) H Urine Blood 5+ (NEGATIVE) H Urine Nitrite Negative (NEGATIVE) Urine Bilirubin 3+ (NEGATIVE) H Urine Ictotest Negative (NEGATIVE) Urine Urobilinogen 12 MG/DL (0.0-1.0) H Urine Leukocyte Esterase 2+ (NEGATIVE) H Urine RBC Tntc /HPF (0 - 2) H Urine WBC 15-20 /HPF (0 - 2) H Urine Squamous Epithelial Cells Moderate /LPF (NONE/OCC) H Urine Bacteria Moderate /HPF (NONE) H Urine HCG, Qualitative Negative (NEGATIVE) Sodium Level 134 MMOL/L (136-145) L Potassium Level 2.2 MMOL/L (3.5-5.1) *L Chloride Level 92 MMOL/L (98-107) L Carbon Dioxide Level 25 MMOL/L (21-32) Anion Gap 15 mmol/L (5-15) Blood Urea Nitrogen 2 mg/dL (7-18) L Creatinine 0.8 MG/DL (0.55-1.30) Estimated Glomerular Filtration Rate > 60 mL/min (>60) Glucose Level 102 MG/DL (74-106) Calcium Level 8.7 MG/DL (8.5-10.1) Magnesium Level Pending Total Bilirubin 8.8 MG/DL (0.2-1.0) H Direct Bilirubin 7.6 MG/DL (0.0-0.3) H Aspartate Amino Transferase (AST) 162 U/L (15-37) H Alanine Aminotransferase (ALT) 45 U/L (12-78) Alkaline Phosphatase 240 U/L (46-116) H Troponin I 0.000 ng/mL (0.000-0.056) Total Protein 8.2 G/DL (6.4-8.2) Albumin 1.9 G/DL (3.4-5.0) L Globulin 6.3 g/dL Albumin/Globulin Ratio 0.3 (1.0-2.7) L Lipase 93 U/L (73-393) Urine Opiates Screen Negative (NEGATIVE) Urine Barbiturates Screen Negative (NEGATIVE) Phencyclidine (PCP) Screen Negative (NEGATIVE) Urine Amphetamines Screen Negative (NEGATIVE) Urine Benzodiazepines Screen Negative (NEGATIVE) Urine Cocaine Screen Negative (NEGATIVE) Urine Marijuana (THC) Screen Negative (NEGATIVE) Serum Alcohol 154 mg/dL EKG Diagnostic Results EKG Time: 22:09 Rate: normal Rhythm: NSR ST Segments: no acute changes Other Impression Sinus rhythm, normal axis, prolonged QTC at 522 ms. Rhythm Strip Diag. Results Rhythm Strip Time: 22:09 EP Interpretation: yes Rate: 80s Rhythm: NSR, no PVC's, no ectopy CT/MRI/US Diagnostic Results CT/MRI/US Diagnostic Results : Impression MPRESSION: No inflammatory change identified. 15 x 15 x 21 mm hypodense lesion of left adrenal gland versus tail of the pancreas, measuring about 7 Hounsfield units, new from the prior study, favors pancreatic pseudocyst rather than adrenal adenoma. Smaller cystic lesions of pancreatic body and tail are nonspecific, can be remnants of prior pancreatitis. Dictated By: Juan R Lezama MD Electronically Signed By:Juan R Lezama MD Signed Date/Time01/07/20 6230 CC: Rubina Hamm Last Vital Signs Date Time Temp Pulse Resp B/P (MAP) Pulse Ox O2 Delivery O2 Flow Rate FiO2 01/07/20 18:59 98.2 140 20 112/79 (90) 98 Room Air Disposition: ADMITTED INPATIENT Condition: Serious Referrals: NOT CHOSEN IPA/,REFERRING (PCP) Procedures Critical Care Time Critical Care Time Total critical care time: Approximately 45 minutes Due to a high probability of clinically significant, life threatening deterioration, the patient required the highest level of preparedness to intervene emergently and I personally spent this critical care time directly and personally managing the patient. This critical care time included obtaining a history, examining the patient, pulse oximetry, ordering and reviewing studies, ordering treatments, evaluating response to treatment and updating management plan as needed, frequent reassessment and discussion with other providers as well as arranging for ultimate disposition. This critical to care time was performed to assess and manage the high probability of life-threatening deterioration that could result in multiorgan failure. This critical care time is separate from the separately billable procedures and treating other patients. Valdo Bunn MD Jan 07, 2020 20:31
[2020-01-07 21:10] VITALS: BP 110/81
--- NOTE | 2020-01-07 21:40 | Diagnostic Imaging Report ---
EXAM: CT Abdomen and Pelvis With Intravenous Contrast CLINICAL HISTORY: pt walked into ED from home c/o generalized weakness and tachycardia with palpitations. Per patient tachycardia has been going on and off for 2 months, and also recent diagnosis of acute pancreatitis. Pt is AAOx4, breathing even and unlabored, sinus tachycardia on the monitor HR 128, other vitals stable as documented. Eyes appear jaundiced. TECHNIQUE: Axial computed tomography images of the abdomen and pelvis with intravenous contrast. CTDI is 2.8 mGy and DLP is 146.8 mGy-cm. One or more of the following dose reduction techniques were used: automated exposure control, adjustment of the mA and/or kV according to patient size, use of iterative reconstruction technique. Coronal and sagittal reformatted images were created and reviewed. COMPARISON: 12/29/18 FINDINGS: Lung bases: Unremarkable. No mass. No consolidation. ABDOMEN: Liver: Mildly enlarged fatty liver. Gallbladder and bile ducts: Unremarkable. No calcified stones. No ductal dilation. Pancreas: Smaller cystic lesion of body and tail of the pancreas measuring up to 5 mm, does not appear to communicate with pancreatic duct. Spleen: Unremarkable. No splenomegaly. Adrenals: 15 x 15 x 21 mm hypodense lesion of left adrenal gland versus tail of the pancreas, measuring about 7 Hounsfield units, new from the prior study. Kidneys and ureters: Unremarkable. No solid mass. No hydronephrosis. Stomach and bowel: Unremarkable. No obstruction. No mucosal thickening. PELVIS: Appendix: No findings to suggest acute appendicitis. Bladder: Unremarkable. No mass. Reproductive: 2.3 x 3.3 x 2 cm exophytic right fundal fibroid in right pelvis on series 9 image 19 is again noted. ABDOMEN and PELVIS: Intraperitoneal space: Unremarkable. No free air. No significant fluid collection. Bones/joints: No acute fracture. No dislocation. Soft tissues: Unremarkable. Vasculature: Unremarkable. No abdominal aortic aneurysm. Lymph nodes: Unremarkable. No enlarged lymph nodes. IMPRESSION: No inflammatory change identified. 15 x 15 x 21 mm hypodense lesion of left adrenal gland versus tail of the pancreas, measuring about 7 Hounsfield units, new from the prior study, favors pancreatic pseudocyst rather than adrenal adenoma. Smaller cystic lesions of pancreatic body and tail are nonspecific, can be remnants of prior pancreatitis.
[2020-01-07] MEDS ORDERED: MULTIVITAMINS1 EAC2 ORAL (21:54)
[2020-01-07 22:19] VITALS: BP 98/74
[2020-01-08] VITALS (7 sets, daily range): BP systolic 55–100; BP diastolic 51–62
[2020-01-08] MEDS ORDERED: LORazepam 0.5mg tab ORAL PRN
[2020-01-08] MEDS ORDERED: Sodium Chloride for KCL Premix x 2hrs IV SCH (02:00)
[2020-01-08] MEDS ORDERED: Sodium Chloride 550 ML IV SCH (05:15)
[2020-01-08] MEDS ORDERED: Sodium Chloride 550 ML IV ONE (05:45)
--- NOTE | 2020-01-08 08:28 | History & Physical ---
History and Physical History & Physicial History and Physical HPI Patient is a 29-year-old female admitted with Jaundice and Urinary tract infection. Has had previous visits for vomitting and Hypokalemia, has history of Alcoholuse, previous gastrtis and pancreatitis. Past medical history of Anemia, due to her latter-day she has refused blood transfusions. Denies abdominal pain. Denies fevers or chills. Denies no other aggravating relieving factors. Denies any other associated symptoms Allergies: No Known Allergies Past Medical History: Pancreatitis, gastritis, hypokalemia Past Surgical History: none Pertinent Family History: none Social History: Denies: smoking All Other Systems: negative except mentioned in HPI Physical Exam Vital Signs noted Date Time Temp Pulse Resp B/P (MAP) Pulse Ox O2 Delivery O2 Flow Rate FiO2 01/07/20 18:59 98.2 140 20 112/79 (90) 98 Room Air General Appearance: no apparent distress, alert, GCS 15, non-toxic, thin, icteric Head: normocephalic, atraumatic Eyes: bilateral eye normal inspection, bilateral eye PERRL, jaundice ENT: hearing grossly normal, normal pharynx,no LN Neck: full range of motion, supple/symm/no masses Respiratory: chest non-tender, lungs clear, normal breath sounds Cardiovascular: no edema, tachycardia,HS1, HS2 normal Gastrointestinal: normal bowel sounds, non tender, soft, non-distended, no guarding, no rebound, no CVA tenderness Musculoskeletal: back normal, normal range of motion, gait/station normal, non-tender Neurologic: alert, motor strength/tone normal, oriented x3, sensory intact, responsive, speech normal Medical Decision Making Impression: Jaundice- no obstruction on CT abdomen Urinary Tract Infection Vomiting Hypokalemia Possible pancreatic pseudocyst Previous Panceatitis-lipase wnl Previous Gastritis Hypokalemia, prolonged QTc Anemia, iron deficiency, thrombocytosis Plan: IV antibiotics IVF Potassium supplementation Analgesia Monitor labs GI consultation PPX Laboratory Tests Test 01/07/20 19:15 White Blood Count 12.9 K/UL (4.8-10.8) H Red Blood Count 2.90 M/UL (4.20-5.40) L Hemoglobin 8.9 G/DL (12.0-16.0) L Hematocrit 30.0 % (37.0-47.0) L Mean Corpuscular Volume 103 FL (80-99) H Mean Corpuscular Hemoglobin 30.6 PG (27.0-31.0) Mean Corpuscular Hemoglobin Concent 29.6 G/DL (32.0-36.0) L Red Cell Distribution Width 19.0 % (11.6-14.8) H Platelet Count 726 K/UL (150-450) H Mean Platelet Volume 5.9 FL (6.5-10.1) L Neutrophils (%) (Auto) 47.1 % (45.0-75.0) Lymphocytes (%) (Auto) 42.3 % (20.0-45.0) Monocytes (%) (Auto) 7.1 % (1.0-10.0) Eosinophils (%) (Auto) 0.8 % (0.0-3.0) Basophils (%) (Auto) 2.6 % (0.0-2.0) H Prothrombin Time 14.3 SEC (9.30-11.50) H Prothrombin Time INR 1.3 (0.9-1.1) H Activated Partial Thromboplast Time 27 SEC (23-33) Urine Color Yellow Urine Appearance Cloudy Urine pH 5 (4.5-8.0) Urine Specific [place] 1.020 (1.005-1.035) Urine Protein 3+ (NEGATIVE) H Urine Glucose (UA) Negative (NEGATIVE) Urine Ketones 1+ (NEGATIVE) H Urine Blood 5+ (NEGATIVE) H Urine Nitrite Negative (NEGATIVE) Urine Bilirubin 3+ (NEGATIVE) H Urine Ictotest Negative (NEGATIVE) Urine Urobilinogen 12 MG/DL (0.0-1.0) H Urine Leukocyte Esterase 2+ (NEGATIVE) H Urine RBC Tntc /HPF (0 - 2) H Urine WBC 15-20 /HPF (0 - 2) H Urine Squamous Epithelial Cells Moderate /LPF (NONE/OCC) H Urine Bacteria Moderate /HPF (NONE) H Urine HCG, Qualitative Negative (NEGATIVE) Sodium Level 134 MMOL/L (136-145) L Potassium Level 2.2 MMOL/L (3.5-5.1) *L Chloride Level 92 MMOL/L (98-107) L Carbon Dioxide Level 25 MMOL/L (21-32) Anion Gap 15 mmol/L (5-15) Blood Urea Nitrogen 2 mg/dL (7-18) L Creatinine 0.8 MG/DL (0.55-1.30) Estimated Glomerular Filtration Rate > 60 mL/min (>60) Glucose Level 102 MG/DL (74-106) Calcium Level 8.7 MG/DL (8.5-10.1) Magnesium Level Pending Total Bilirubin 8.8 MG/DL (0.2-1.0) H Direct Bilirubin 7.6 MG/DL (0.0-0.3) H Aspartate Amino Transferase (AST) 162 U/L (15-37) H Alanine Aminotransferase (ALT) 45 U/L (12-78) Alkaline Phosphatase 240 U/L (46-116) H Troponin I 0.000 ng/mL (0.000-0.056) Total Protein 8.2 G/DL (6.4-8.2) Albumin 1.9 G/DL (3.4-5.0) L Globulin 6.3 g/dL Albumin/Globulin Ratio 0.3 (1.0-2.7) L Lipase 93 U/L (73-393) Urine Opiates Screen Negative (NEGATIVE) Urine Barbiturates Screen Negative (NEGATIVE) Phencyclidine (PCP) Screen Negative (NEGATIVE) Urine Amphetamines Screen Negative (NEGATIVE) Urine Benzodiazepines Screen Negative (NEGATIVE) Urine Cocaine Screen Negative (NEGATIVE) Urine Marijuana (THC) Screen Negative (NEGATIVE) Serum Alcohol 154 mg/dL EKG: NSR ST Segments: no acute changes Other Impression Sinus rhythm, normal axis, prolonged QTC at [address] Abdomen IMPRESSION: No inflammatory change identified. 15 x 15 x 21 mm hypodense lesion of left adrenal gland versus tail of the pancreas, measuring about 7 Hounsfield units, new from the prior study, favors pancreatic pseudocyst rather than adrenal adenoma. Smaller cystic lesions of pancreatic body and tail are nonspecific, can be remnants of prior pancreatitis. Tesfaye Brown MD Jan 08, 2020 08:28
[2020-01-08] MEDS ORDERED: Thiamine 100mg tab ORAL SCH (09:00)
[2020-01-08 09:21] LABS: HEMATOCRIT 27.5 % (37.0-47.0); HEMOGLOBIN 7.8 G/DL (12.0-16.0); MEAN CORPUSCULAR VOLUME 108 FL (80-99); PLATELET COUNT 390 K/UL (150-450); RED BLOOD COUNT 2.55 M/UL (4.20-5.40); RED CELL DISTRIBUTION WIDTH 17.7 % (11.6-14.8)
--- NOTE | 2020-01-08 09:22 | Diagnostic Imaging Report ---
EXAM: US Duplex Bilateral Upper Extremities Veins CLINICAL HISTORY: SCREEN TECHNIQUE: Real-time duplex ultrasound scan of the bilateral upper extremity veins integrating B-mode two-dimensional vascular structure, Doppler spectral analysis, color flow Doppler imaging and compression. COMPARISON: No relevant prior studies available. FINDINGS: Right deep veins: No DVT in the right internal jugular, subclavian, axillary, or brachial veins. The veins demonstrate normal color flow, are normally compressible, with normal phasic flow and/or augmentation response. Right superficial veins: No thrombus in the visualized right basilic and cephalic veins. ----- Left deep veins: No DVT in the left internal jugular, subclavian, axillary, or brachial veins. The veins demonstrate normal color flow, are normally compressible, with normal phasic flow and/or augmentation response. Left superficial veins: No thrombus in the visualized left basilic and cephalic veins. IMPRESSION: No deep venous thrombosis of the bilateral lower extremities.
--- NOTE | 2020-01-08 09:26 | Diagnostic Imaging Report ---
EXAM: US Abdomen Complete CLINICAL HISTORY: SCREEN TECHNIQUE: Real-time ultrasound of the abdomen with image documentation. COMPARISON: CT abdomen and pelvis January 07, 2020. FINDINGS: Liver: The liver is increased in echogenicity, consistent with hepatic steatosis. Gallbladder: There is no cholelithiasis. The common bile duct measures 5 mm. Pancreas: Suspected pancreatic pseudocyst from yesterday's CT scan is not visualized. Right Kidney: The right kidney measures 11.1 cm. No hydronephrosis or nephrolithiasis. Left Kidney: The left kidney measures 11.7 cm. No hydronephrosis or nephrolithiasis. Spleen: The spleen measures 11.7 cm. Abdominal Aorta and IVC: The abdominal aorta measures 1.5 cm in AP dimension. The inferior vena cava is within normal limits. IMPRESSION: Hepatic steatosis. Suspected pancreatic pseudocyst from yesterday's CT scan is not visualized.
[2020-01-08 09:48] LABS: IRON 11 ug/dL (50-175)
[2020-01-08 09:58] LABS: ANION GAP 8 mmol/L (5-15); BLOOD UREA NITROGEN 2 mg/dL (7-18); CALCIUM 7.1 MG/DL (8.5-10.1); CARBON DIOXIDE 26 MMOL/L (21-32); CHLORIDE 103 MMOL/L (98-107); CREATININE 0.6 MG/DL (0.55-1.30); FERRITIN 22 NG/ML (8-388); POTASSIUM 3.1 MMOL/L (3.5-5.1); SODIUM 137 MMOL/L (136-145)
[2020-01-08] MEDS: Folic Acid 1 MG, Magnesium Sulfate 2,000 MG, Multivitamin - 12 Injection 10 ML in Sodiu... IV SCH ×2 (09:59→22:10)
[2020-01-08] MEDS: Thiamine 100mg in D5W 55ml IVPB SCH (09:59)
[2020-01-08] MEDS: Pantoprazole Inj IVP SCH (09:59)
--- NOTE | 2020-01-08 10:13 | General Progress Note ---
Subjective ROS Limited/Unobtainable: Yes Allergies: Coded Allergies: No Known Allergies (Unverified , 12/29/18) Objective Last 24 Hour Vital Signs Date Time Temp Pulse Resp B/P (MAP) Pulse Ox O2 Delivery O2 Flow Rate FiO2 01/08/20 05:01 97.9 107 18 99/52 (68) 98 01/08/20 04:00 98.8 103 18 98/55 (69) 97 01/08/20 04:00 110 01/08/20 00:00 93 01/08/20 00:00 97.7 89 19 93/62 (72) 96 01/07/20 23:08 91 01/07/20 22:45 97.9 86 18 101/73 100 Room Air 01/07/20 22:19 97.8 82 16 98/74 100 Room Air 01/07/20 21:10 98.0 108 16 110/81 100 Room Air 01/07/20 19:05 98.2 128 16 109/78 100 Room Air 01/07/20 19:05 128 20 Room Air 01/07/20 18:59 98.2 140 20 112/79 (90) 98 Room Air Intake and Output 01/07/20 01/08/20 19:00 07:00 Intake Total 1355 ml Balance 1355 ml Intake IV Total 1355 ml # Voids 2 Laboratory Tests 01/07/20 19:15: White Blood Count 12.9H, Red Blood Count 2.90L, Hemoglobin 8.9L, Hematocrit 30.0L, Mean Corpuscular Volume 103H, Mean Corpuscular Hemoglobin 30.6, Mean Corpuscular Hemoglobin Concent 29.6L, Red Cell Distribution Width 19.0H, Platelet Count 726H, Mean Platelet Volume 5.9L, Neutrophils (%) (Auto) 47.1, Lymphocytes (%) (Auto) 42.3, Monocytes (%) (Auto) 7.1, Eosinophils (%) (Auto) 0.8, Basophils (%) (Auto) 2.6H, Prothrombin Time 14.3H, Prothromb Time International Ratio 1.3H, Activated Partial Thromboplast Time 27, Urine Color Yellow, Urine Appearance Cloudy, Urine pH 5, Urine Specific [place] 1.020, Urine Protein 3+H, Urine Glucose (UA) Negative, Urine Ketones 1+H, Urine Blood 5+H, Urine Nitrite Negative, Urine Bilirubin 3+H, Urine Ictotest Negative, Urine Urobilinogen 12H, Urine Leukocyte Esterase 2+H, Urine RBC TntcH, Urine WBC 15- 20H, Urine Squamous Epithelial Cells ModerateH, Urine Bacteria ModerateH, Urine HCG, Qualitative Negative, Sodium Level 134L, Potassium Level 2.2*L, Chloride Level 92L, Carbon Dioxide Level 25, Anion Gap 15, Blood Urea Nitrogen 2L, Creatinine 0.8, Estimat Glomerular Filtration Rate > 60, Glucose Level 102, Calcium Level 8.7, Magnesium Level 2.0, Total Bilirubin 8.8H, Direct Bilirubin 7.6H, Aspartate Amino Transf (AST/SGOT) 162H, Alanine Aminotransferase (ALT/SGPT) 45, Alkaline Phosphatase 240H, Troponin I 0.000, Total Protein 8.2, Albumin 1.9L, Globulin 6.3, Albumin/Globulin Ratio 0.3L, Lipase 93, Urine Opiates Screen Negative, Acetaminophen Level < 2L, Urine Barbiturates Screen Negative, Phencyclidine (PCP) Screen Negative, Urine Amphetamines Screen Negative, Urine Benzodiazepines Screen Negative, Urine Cocaine Screen Negative, Urine Marijuana (THC) Screen Negative, Serum Alcohol 154 01/08/20 08:45: White Blood Count 8.0, Red Blood Count 2.55L, Hemoglobin 7.8L, Hematocrit 27.5L, Mean Corpuscular Volume 108H, Mean Corpuscular Hemoglobin 30.6, Mean Corpuscular Hemoglobin Concent 28.3L, Red Cell Distribution Width 17.7H, Platelet Count 390, Mean Platelet Volume 6.0L, Neutrophils (%) (Auto) , Lymphocytes (%) (Auto) , Monocytes (%) (Auto) , Eosinophils (%) (Auto) , Basophils (%) (Auto) , Sodium Level 137, Potassium Level 3.1L, Chloride Level 103, Carbon Dioxide Level 26, Anion Gap 8, Blood Urea Nitrogen 2L, Creatinine 0.6, Estimat Glomerular Filtration Rate > 60, Glucose Level 78, Calcium Level 7.1L, Neutrophils % (Manual) [Pending], Lymphocytes % (Manual) [Pending], Platelet Estimate [Pending], Platelet Morphology [Pending], Iron Level 11L, Ferritin 22, Folate 5.5L, Hepatitis A IgM Antibody [Pending], Hepatitis B Surface Antigen [Pending], Hepatitis B Core IgM Antibody [Pending], Hepatitis C Antibody [Pending] Height (Feet): 5 Height (Inches): 6.00 Weight (Pounds): 96 General Appearance: no apparent distress EENT: normal ENT inspection Neck: supple Cardiovascular: normal rate Respiratory/Chest: decreased breath sounds Abdomen: soft, hypoactive bowel sounds, tender Extremities: non-tender Assessment/Plan Assessment/Plan: macrocystic anemia folate def jaundice fatty liver ETOH abuse pancreatic pseudo cyst ivf pain control us and CT reviewed MRCP repeat labs will fu drug screen Tolu Adames MD Jan 08, 2020 10:13
[2020-01-08] MEDS: cefTRIAXone 1 GM in D5W 55 ML IVPB SCH (20:18)
[2020-01-09] VITALS: BP 103/61
[2020-01-09 04:00] VITALS: BP 98/59
--- NOTE | 2020-01-09 07:23 | General Progress Note ---
Subjective ROS Limited/Unobtainable: Yes Allergies: Coded Allergies: No Known Allergies (Unverified , 12/29/18) Objective Last 24 Hour Vital Signs Date Time Temp Pulse Resp B/P (MAP) Pulse Ox O2 Delivery O2 Flow Rate FiO2 01/09/20 04:00 103 01/09/20 04:00 98.9 110 19 98/59 (72) 98 01/09/20 00:00 125 01/09/20 00:00 99.5 125 20 103/61 (75) 98 01/08/20 21:00 Room Air 01/08/20 20:00 120 01/08/20 20:00 99.9 128 19 95/56 (69) 100 01/08/20 16:00 115 01/08/20 16:00 97.9 107 18 100/55 (70) 99 01/08/20 12:00 116 01/08/20 12:00 97.6 104 18 95/51 (66) 98 01/08/20 09:00 Room Air 01/08/20 08:00 100 01/08/20 08:00 97.9 100 18 90/51 (64) 97 Intake and Output 01/08/20 01/09/20 19:00 07:00 Intake Total 245 ml 1550 ml Balance 245 ml 1550 ml Intake Oral 120 ml 800 ml IV Total 125 ml 750 ml # Voids 1 4 Laboratory Tests 01/08/20 08:45: White Blood Count 8.0, Red Blood Count 2.55L, Hemoglobin 7.8L, Hematocrit 27.5L, Mean Corpuscular Volume 108H, Mean Corpuscular Hemoglobin 30.6, Mean Corpuscular Hemoglobin Concent 28.3L, Red Cell Distribution Width 17.7H, Platelet Count 390, Mean Platelet Volume 6.0L, Neutrophils (%) (Auto) , Lymphocytes (%) (Auto) , Monocytes (%) (Auto) , Eosinophils (%) (Auto) , Basophils (%) (Auto) , Differe ntial Total Cells Counted 100, Neutrophils % (Manual) 56, Lymphocytes % (Manual) 39, Monocytes % (Manual) 3, Eosinophils % (Manual) 1, Basophils % (Manual) 1, Band Neutrophils 0, Platelet Estimate Adequate, Platelet Morphology Normal, Hypochromasia 2+, Anisocytosis 1+, Macrocytosis 2+, Sodium Level 137, Potassium Level 3.1L, Chloride Level 103, Carbon Dioxide Level 26, Anion Gap 8, Blood Urea Nitrogen 2L, Creatinine 0.6, Estimat Glomerular Filtration Rate > 60, Glucose Level 78, Calcium Level 7.1L, Iron Level 11L, Ferritin 22, Folate 5.5L, Hepatitis A IgM Antibody [Pending], Hepatitis B Surface Antigen [Pending], Hepatitis B Core IgM Antibody [Pending], Hepatitis C Antibody [Pending] 01/08/20 13:42: Urine Opiates Screen Negative, Urine Barbiturates Screen Negative, Phencyclidine (PCP) Screen Negative, Urine Amphetamines Screen Negative, Urine Benzodiazepines Screen Negative, Urine Cocaine Screen Negative, Urine Marijuana (THC) Screen Negative Height (Feet): 5 Height (Inches): 6.00 Weight (Pounds): 96 General Appearance: alert Cardiovascular: tachycardia Respiratory/Chest: decreased breath sounds Abdomen: soft, hypoactive bowel sounds Extremities: non-tender Assessment/Plan Assessment/Plan: macrocystic anemia folate def jaundice fatty liver ETOH abuse pancreatic pseudo cyst ivf>>>will decrease pain control us and CT reviewed MRCP>>pending repeat labs will fu Tolu Adames MD Jan 09, 2020 07:23
[2020-01-09 08:00] VITALS: BP 103/62
[2020-01-09 08:41] LABS: HEMATOCRIT 26.6 % (37.0-47.0); HEMOGLOBIN 7.6 G/DL (12.0-16.0); MEAN CORPUSCULAR VOLUME 109 FL (80-99); PLATELET COUNT 442 K/UL (150-450); RED BLOOD COUNT 2.45 M/UL (4.20-5.40); RED CELL DISTRIBUTION WIDTH 18.2 % (11.6-14.8); WHITE BLOOD COUNT 9.9 K/UL (4.8-10.8)
[2020-01-09] MEDS: Pantoprazole Inj IVP SCH (08:55)
[2020-01-09] MEDS: Thiamine 100mg in D5W 55ml IVPB SCH (08:56)
[2020-01-09 09:10] LABS: ALANINE AMINOTRANSFERASE 43 U/L (12-78); ALBUMIN 1.4 G/DL (3.4-5.0); ALBUMIN/GLOBULIN RATIO 0.3 (1.0-2.7); ALKALINE PHOSPHATASE 197 U/L (46-116); ANION GAP 7 mmol/L (5-15); ASPARTATE AMINO TRANSFERASE 153 U/L (15-37); BILIRUBIN,TOTAL 6.1 MG/DL (0.2-1.0); BLOOD UREA NITROGEN 1 mg/dL (7-18); CALCIUM 7.4 MG/DL (8.5-10.1); CARBON DIOXIDE 26 MMOL/L (21-32); CHLORIDE 107 MMOL/L (98-107); CREATININE 0.7 MG/DL (0.55-1.30); SODIUM 139 MMOL/L (136-145)
[2020-01-09 09:14] LABS: BILIRUBIN,DIRECT 5.9 MG/DL (0.0-0.3); POTASSIUM 2.7 MMOL/L (3.5-5.1)
--- NOTE | 2020-01-09 09:22 | Pulmonology Progress Note ---
Subjective ROS Limited/Unobtainable: No Allergies: Coded Allergies: No Known Allergies (Unverified , 12/29/18) Objective Last 24 Hour Vital Signs Date Time Temp Pulse Resp B/P (MAP) Pulse Ox O2 Delivery O2 Flow Rate FiO2 01/09/20 08:00 97.6 114 20 103/62 (76) 100 01/09/20 04:00 103 01/09/20 04:00 98.9 110 19 98/59 (72) 98 01/09/20 00:00 125 01/09/20 00:00 99.5 125 20 103/61 (75) 98 01/08/20 21:00 Room Air 01/08/20 20:00 120 01/08/20 20:00 99.9 128 19 95/56 (69) 100 01/08/20 16:00 115 01/08/20 16:00 97.9 107 18 100/55 (70) 99 01/08/20 12:00 116 01/08/20 12:00 97.6 104 18 95/51 (66) 98 Intake and Output 01/08/20 01/09/20 19:00 07:00 Intake Total 245 ml 1550 ml Balance 245 ml 1550 ml Intake Oral 120 ml 800 ml IV Total 125 ml 750 ml # Voids 1 4 Microbiology Date/Time Source Procedure Growth Status 01/07/20 22:02 Rectal Mucosa Received 01/07/20 22:02 Nasal Nares MRSA Culture - Final NO METHICILLIN RESISTANT STAPH AUREUS... Complete 01/07/20 22:02 Nasopharynx SARS-CoV-2 RdRp Gene Assay - Final Complete 01/07/20 19:15 Urine,Clean Catch Urine Culture - Preliminary Gram Negative Khadar Resulted Laboratory Tests 01/08/20 13:42: Urine Opiates Screen Negative, Urine Barbiturates Screen Negative, Phencyclidine (PCP) Screen Negative, Urine Amphetamines Screen Negative, Urine Benzodiazepines Screen Negative, Urine Cocaine Screen Negative, Urine Marijuana (THC) Screen Negative 01/09/20 07:38: White Blood Count 9.9, Red Blood Count 2.45L, Hemoglobin 7.6L, Hematocrit 26.6L, Mean Corpuscular Volume 109H, Mean Corpuscular Hemoglobin 31.0, Mean Corpuscular Hemoglobin Concent 28.6L, Red Cell Distribution Width 18.2H, Platelet Count 442, Mean Platelet Volume 6.1L, Neutrophils (%) (Auto) , Lymphocytes (%) (Auto) , Monocytes (%) (Auto) , Eosinophils (%) (Auto) , Basophils (%) (Auto) , Neutrophils % (Manual) [Pending], Lymphocytes % (Manual) [Pending], Platelet Estimate [Pending], Platelet Morphology [Pending], Sodium Level 139, Potassium Level 2.7*L, Chloride Level 107, Carbon Dioxide Level 26, Anion Gap 7, Blood Urea Nitrogen 1L, Creatinine 0.7, Estimat Glomerular Filtration Rate > 60, Glucose Level 94, Calcium Level 7.4L, Total Bilirubin 6.1H, Direct Bilirubin 5.9H, Aspartate Amino Transf (AST/SGOT) 153H, Alanine Aminotransferase (ALT/SGPT) 43, Alkaline Phosphatase 197H, Total Protein 5.9L, Albumin 1.4L, Globulin 4.5, Albumin/Globulin Ratio 0.3L Current Medications Medications (Trade) Dose Ordered Sig/Bartolo Route PRN Reason Start Time Stop Time Status Last Admin Dose Admin Acetaminophen (Tylenol) 325 mg Q6H PRN ORAL For Pain and Fever >100.1 01/08/20 00:00 02/07/20 00:00 01/08/20 17:39 Ceftriaxone Sodium 1 gm/ Dextrose 55 ml @ 110 mls/hr Q24H IVPB 01/08/20 20:00 01/15/20 19:59 01/08/20 20:18 Folic Acid (Folate) 1 mg DAILY ORAL 01/09/20 09:00 02/08/20 08:59 01/09/20 08:55 Folic Acid 1 mg/ Magnesium Sulfate 2000 mg/ Multivitamins 10 ml/Sodium Chloride 1,014.2 ml @ 125 mls/ hr Q24H IV 01/08/20 08:00 02/07/20 07:59 01/08/20 22:10 Lorazepam (Ativan) 0.5 mg Q6H PRN ORAL For Anxiety and Agitation 01/08/20 00:00 01/15/20 00:00 Multivitamins (Multivitamins) 1 tab DAILY ORAL 01/08/20 09:00 02/07/20 08:59 01/09/20 08:55 Ondansetron HCl (Zofran) 4 mg Q6H PRN IVP Nausea & Vomiting 01/08/20 00:00 12/14/20 00:00 01/08/20 10:35 Pantoprazole (Protonix) 40 mg DAILY IVP 01/08/20 09:00 02/07/20 08:59 01/09/20 08:55 Thiamine HCl 100 mg/Dextrose 56 ml @ 112 mls/hr Q24H IVPB 01/08/20 08:00 02/07/20 07:59 01/09/20 08:56 Assessment/Plan Assessment/Plan Progress Noted HPI Patient is a 29-year-old female admitted with Jaundice and Urinary tract infection. Has had previous visits for vomitting and Hypokalemia, has history of Alcoholuse, previous gastrtis and pancreatitis. Past medical history of Anemia, due to her yazdanism she has refused blood transfusions. Denies abdominal pain. Denies fevers or chills. Denies no other aggravating relieving factors. Denies any other associated symptoms Intermittent anxiety, tachycardia-NSR on EKG LFT's improving owK again - supplemented GI following, MRCP pending Hepatitis serology pernding Anemia stable Hb 7.6 Allergies: No Known Allergies Past Medical History: Pancreatitis, gastritis, hypokalemia Physical Exam Vital Signs noted General Appearance: no apparent distress, alert, GCS 15, non-toxic, thin, icteric Head: normocephalic, atraumatic Eyes: bilateral eye normal inspection, bilateral eye PERRL, jaundice ENT: hearing grossly normal, normal pharynx,no LN Neck: full range of motion, supple/symm/no masses Respiratory: chest non-tender, lungs clear, normal breath sounds Cardiovascular: no edema, tachycardia,HS1, HS2 normal Gastrointestinal: normal bowel sounds, non tender, soft, non-distended, no guarding, no rebound, no CVA tenderness Musculoskeletal: back normal, normal range of motion, gait/station normal, non- tender Neurologic: alert, motor strength/tone normal, oriented x3, sensory intact, responsive, speech normal Medical Decision Making Impression: Jaundice- no obstruction on CT abdomen Urinary Tract Infection Vomiting Hypokalemia Possible pancreatic pseudocyst Previous Panceatitis-lipase wnl Previous Gastritis Hypokalemia, prolonged QTc Anemia, iron deficiency, thrombocytosis Plan: IV antibiotics IVF TFN PRN - OK to have transfusion Potassium supplementation Analgesia Monitor labs GI consultation Cardiology Consultation for tachycardia PPX Hepatitis serology Laboratory Tests noted EKG: NSR ST Segments: no acute changes Other Impression Sinus rhythm, normal axis, prolonged QTC at [address] Abdomen IMPRESSION: No inflammatory change identified. 15 x 15 x 21 mm hypodense lesion of left adrenal gland versus tail of the pancreas, measuring about 7 Hounsfield units, new from the prior study, favors pancreatic pseudocyst rather than adrenal adenoma. Smaller cystic lesions of pancreatic body and tail are nonspecific, can be remnants of prior pancreatitis. Tesfaye Brown MD Jan 09, 2020 09:22
[2020-01-09] MEDS ORDERED: Sodium Chloride for KCL Premix x 2hrs IV SCH (10:00)
[2020-01-09 12:00] VITALS: BP 109/68
[2020-01-09] MEDS ORDERED: NS 275ml ONE (15:15)
[2020-01-09] MEDS ORDERED: Tubing IV Secondary IV ONE (15:15)
--- NOTE | 2020-01-09 15:45 | Consultation ---
DATE OF CONSULTATION: 01/09/2020 CARDIOLOGY CONSULTATION CONSULTING PHYSICIAN: Tesfaye Valles MD REASON FOR CONSULTATION: Tachycardia. HISTORY OF PRESENT ILLNESS: This 29-year-old female who presented to the emergency room with weakness and abdominal pain. Her initial workup has revealed a urinary tract infection and anemia as well as hypokalemia. She has a history of prior pancreatitis, alcohol use, and is a Faith, refusing any transfusions. I was asked to assist with cardiovascular care addressing her tachycardia as well as an abnormal EKG. PAST MEDICAL HISTORY: Pancreatitis, gastritis. SOCIAL HISTORY: Positive for alcohol use. No smoking or substance abuse. MEDICATIONS: Reviewed. ALLERGIES: None known. PHYSICAL EXAMINATION: VITAL SIGNS: Blood pressure 109/68, heart rate 101, respirations 18, afebrile. HEENT: Conjunctivae pink. Sclerae are anicteric. Oropharynx clear. NECK: Supple. LUNGS: Clear. CARDIAC: Regular rhythm. Rapid rate. Normal S1, S2. No murmur. ABDOMEN: Distended. Tender in the midepigastric region. EXTREMITIES: No edema. LABORATORY AND DIAGNOSTIC DATA: White count 9.9, hemoglobin 7.6. Potassium 2.7, BUN 1, creatinine 0.7. Magnesium level on 01/07/2020 was 2.0. Albumin 1.4. Folic acid 5.5. EKG on 01/08/2020 revealed sinus tachycardia with normal QT interval. IMPRESSION: 1. Hypovolemia. 2. Dehydration. 3. Hypokalemia. 4. Anemia. 5. Multiple vitamin deficiencies. 6. History of alcoholism. 7. Possible pancreatic pseudocyst. 8. Physiologic sinus tachycardia. No signs of QT prolongation on baseline EKG. 9. Severe protein-calorie malnutrition. PLAN: 1. Hydration. 2. Vitamin supplementation per primary care physician. 3. Potassium replacement. 4. No antiarrhythmic therapy indicated. 5. Continue cardiac monitoring. Tesfaye Valles M.D. DR: YUE JOB#: [id number] CC:
--- NOTE | 2020-01-09 15:47 | Cardiology Report ---
APPROVED REPORT EKG Measurement Heart [id number] <Conclusion> Sinus tachycardia Otherwise normal ECG
[2020-01-09 16:00] VITALS: BP 101/64
--- NOTE | 2020-01-09 16:05 | Cardiology Report ---
APPROVED REPORT EKG Measurement Heart [id number] <Conclusion> Normal sinus rhythm Septal infarct, age undetermined Prolonged QT Abnormal ECG
[2020-01-09 20:00] VITALS: BP 99/59
[2020-01-09] MEDS: cefTRIAXone 1 GM in D5W 55 ML IVPB SCH (20:21)
[2020-01-10] VITALS: BP 96/63
[2020-01-10 04:00] VITALS: BP 92/64
[2020-01-10 08:00] VITALS: BP 100/70
[2020-01-10] MEDS: Pantoprazole Inj IVP SCH (08:02)
[2020-01-10] MEDS: Thiamine 100mg in D5W 55ml IVPB SCH (08:02)
[2020-01-10] MEDS: Folic Acid 1 MG, Magnesium Sulfate 2,000 MG, Multivitamin - 12 Injection 10 ML in Sodiu... IV SCH (08:02)
--- NOTE | 2020-01-10 08:14 | General Progress Note ---
Subjective Allergies: Coded Allergies: No Known Allergies (Unverified , 12/29/18) Subjective care noted reviewed and discussed Objective Last 24 Hour Vital Signs Date Time Temp Pulse Resp B/P (MAP) Pulse Ox O2 Delivery O2 Flow Rate FiO2 01/10/20 04:00 95 01/10/20 04:00 98.1 102 18 92/64 (73) 99 01/10/20 00:00 99.3 108 20 96/63 (74) 100 01/10/20 00:00 100 01/09/20 21:00 Room Air 01/09/20 20:00 99.0 108 18 99/59 (72) 99 01/09/20 20:00 105 01/09/20 17:15 97.7 01/09/20 16:00 100.8 108 20 101/64 (76) 98 01/09/20 16:00 109 01/09/20 12:00 108 01/09/20 12:00 96.6 101 18 109/68 (82) 100 01/09/20 09:00 Room Air Intake and Output 01/09/20 01/10/20 19:00 07:00 Intake Total 1000 ml 800 ml Balance 1000 ml 800 ml Intake Oral 1000 ml 800 ml # Voids 5 3 # Bowel Movements 2 Laboratory Tests 01/09/20 23:30: Stool Occult Blood [Pending] Height (Feet): 5 Height (Inches): 6.00 Weight (Pounds): 96 Objective WDWN NAD clear breath sounds bilaterally without rhonchi or wheeze S1S2RR tachy without MRG NABS nontender no HSM no CCE jaundice Assessment/Plan Assessment/Plan: Impression: Jaundice- Urinary Tract Infection Vomiting Hypokalemia pancreatic pseudocyst Previous Gastritis Anemia, iron deficiency, thrombocytosis Plan: IV antibiotics IVF monitor HH Potassium supplementation Analgesia Monitor labs GI consultation Cardiology monitor for change Hepatitis serology impression, plan, and exam edited and reviewed in detail care discussed with Dada Fisher MD Jan 10, 2020 08:14
[2020-01-10 09:12] LABS: HEMATOCRIT 23.6 % (37.0-47.0); MEAN CORPUSCULAR VOLUME 110 FL (80-99); PLATELET COUNT 366 K/UL (150-450); RED BLOOD COUNT 2.15 M/UL (4.20-5.40); RED CELL DISTRIBUTION WIDTH 17.9 % (11.6-14.8); WHITE BLOOD COUNT 9.1 K/UL (4.8-10.8)
[2020-01-10 09:22] LABS: HEMOGLOBIN 6.6 G/DL (12.0-16.0)
--- NOTE | 2020-01-10 09:58 | General Progress Note ---
Subjective ROS Limited/Unobtainable: Yes Allergies: Coded Allergies: No Known Allergies (Unverified , 12/29/18) Objective Last 24 Hour Vital Signs Date Time Temp Pulse Resp B/P (MAP) Pulse Ox O2 Delivery O2 Flow Rate FiO2 01/10/20 09:00 Room Air 01/10/20 08:00 100.2 95 18 100/70 (80) 100 01/10/20 08:00 96 01/10/20 04:00 95 01/10/20 04:00 98.1 102 18 92/64 (73) 99 01/10/20 00:00 99.3 108 20 96/63 (74) 100 01/10/20 00:00 100 01/09/20 21:00 Room Air 01/09/20 20:00 99.0 108 18 99/59 (72) 99 01/09/20 20:00 105 01/09/20 17:15 97.7 01/09/20 16:00 100.8 108 20 101/64 (76) 98 01/09/20 16:00 109 01/09/20 12:00 108 01/09/20 12:00 96.6 101 18 109/68 (82) 100 Intake and Output 01/09/20 01/10/20 19:00 07:00 Intake Total 1000 ml 800 ml Balance 1000 ml 800 ml Intake Oral 1000 ml 800 ml # Voids 5 3 # Bowel Movements 2 Laboratory Tests 01/09/20 23:30: Stool Occult Blood [Pending] 01/10/20 08:58: White Blood Count 9.1, Red Blood Count 2.15L, Hemoglobin 6.6*L, Hematocrit 23.6L , Mean Corpuscular Volume 110H, Mean Corpuscular Hemoglobin 30.5, Mean Corpuscular Hemoglobin Concent 27.8L, Red Cell Distribution Width 17.9H, Platelet Count 366, Mean Platelet Volume 6.0L, Neutrophils (%) (Auto) , Lympho cytes (%) (Auto) , Monocytes (%) (Auto) , Eosinophils (%) (Auto) , Basophils (%) (Auto) , Differential Total Cells Counted 100, Neutrophils % (Manual) 65, Lymphocytes % (Manual) 27, Monocytes % (Manual) 6, Eosinophils % (Manual) 2, Basophils % (Manual) 0, Band Neutrophils 0, Platelet Estimate Adequate, Platelet Morphology Normal, Polychromasia 1+, Hypochromasia 2+, Anisocytosis 1+, Macrocytosis 1+, Sodium Level [Pending], Potassium Level [Pending], Chloride Level [Pending], Carbon Dioxide Level [Pending], Blood Urea Nitrogen [Pending], Creatinine [Pending], Estimat Glomerular Filtration Rate [Pending], Glucose Level [Pending], Calcium Level [Pending], Total Bilirubin [Pending], Aspartate Amino Transf (AST/SGOT) [Pending], Alanine Aminotransferase (ALT/SGPT) [Pending], Alkaline Phosphatase [Pending], Pro-B-Type Natriuretic Peptide [Pending], Total Protein [Pending], Albumin [Pending], Globulin [Pending] Height (Feet): 5 Height (Inches): 6.00 Weight (Pounds): 96 General Appearance: no apparent distress Neck: supple Cardiovascular: normal rate Respiratory/Chest: decreased breath sounds Abdomen: normal bowel sounds, non tender, soft Extremities: non-tender Assessment/Plan Assessment/Plan: macrocystic anemia folate def jaundice fatty liver ETOH abuse pancreatic pseudo cyst ivf pain control us and CT reviewed MRCP>>pending repeat labs pending blood transfusion will fu Tolu Adames MD Jan 10, 2020 09:58
[2020-01-10 10:14] LABS: ALANINE AMINOTRANSFERASE 33 U/L (12-78); ALBUMIN 1.2 G/DL (3.4-5.0); ALBUMIN/GLOBULIN RATIO 0.3 (1.0-2.7); ALKALINE PHOSPHATASE 157 U/L (46-116); ANION GAP 6 mmol/L (5-15); ASPARTATE AMINO TRANSFERASE 115 U/L (15-37); BILIRUBIN,TOTAL 5.2 MG/DL (0.2-1.0); BLOOD UREA NITROGEN 1 mg/dL (7-18); CALCIUM 7.7 MG/DL (8.5-10.1); CARBON DIOXIDE 23 MMOL/L (21-32); CHLORIDE 108 MMOL/L (98-107); CREATININE 0.6 MG/DL (0.55-1.30); POTASSIUM 3.7 MMOL/L (3.5-5.1); SODIUM 137 MMOL/L (136-145)
--- NOTE | 2020-01-10 13:07 | Diagnostic Imaging Report ---
EXAM: MRI MRI Abdomen no Contrast TECHNIQUE: MR examination of the abdomen includes coronal T2, coronal lava, axial T2, axial 3-D dual echo, axial T2 fat-sat, and [id number] MRCP with 3-D reconstructions. CLINICAL HISTORY: Reason For Exam: ABD PAIN. COMPARISON: CT abdomen and pelvis dated 01/07/2020 and 12/29/2018 FINDINGS: The liver is enlarged and demonstrates fatty infiltration, as seen on prior examinations. There is no intrahepatic or extrahepatic biliary ductal dilatation. There is focal caliber change of the common hepatic duct just upstream from the confluence of the cystic duct producing an apparent severe focal stenosis. Gallbladder is contracted, limiting evaluation. No cholelithiasis. The pancreas is atrophic. The main pancreatic duct through the pancreatic body and tail is irregular and demonstrates multifocal stricturing and saccular outpouchings. Posterior and medial to the distal pancreatic tail, there is a 1.9 x 1.3 cm cystic mass with surrounding soft tissue signal. Spleen is normal in size. Large accessory splenule measuring 4.6 x 4.2 cm is again demonstrated. Uterus is myomatous. There is trace perihepatic and right paracolic gutter free fluid. IMPRESSION: 1. Irregular beaded and strictured appearance of the pancreatic duct in the pancreatic body and tail, which can be seen as sequelae of chronic pancreatitis. 2. Cystic mass adjacent to the pancreatic tail, the differential for which includes pancreatic fluid collection/pseudocyst, less likely large sidebranch IPMN given development since comparison CT abdomen and pelvis dated 12/29/2018. 3. Apparent severe focal stenosis of the distal common hepatic duct, which is likely artifactual given lack of upstream intra or extrahepatic biliary duct dilatation. 4. Hepatomegaly with steatosis.
[2020-01-10 16:00] VITALS: BP 90/51
[2020-01-10 20:00] VITALS: BP 99/49
[2020-01-10] MEDS: cefTRIAXone 1 GM in D5W 55 ML IVPB SCH (20:00)
[2020-01-11] VITALS: BP 91/51
[2020-01-11 04:00] VITALS: BP 88/63
[2020-01-11 08:00] VITALS: BP 103/61
--- NOTE | 2020-01-11 08:21 | General Progress Note ---
Subjective Allergies: Coded Allergies: No Known Allergies (Unverified , 12/29/18) Subjective care noted reviewed and discussed taking PO mild abdominal pain Objective Last 24 Hour Vital Signs Date Time Temp Pulse Resp B/P (MAP) Pulse Ox O2 Delivery O2 Flow Rate FiO2 01/11/20 08:00 98.1 70 19 103/61 (75) 98 01/11/20 04:00 81 01/11/20 04:00 98.1 82 18 88/63 (71) 98 01/11/20 00:00 98.2 90 18 91/51 (64) 99 01/11/20 00:00 95 01/10/20 21:00 Room Air 01/10/20 20:00 98.1 63 20 99/49 (66) 100 01/10/20 20:00 94 01/10/20 16:00 93 01/10/20 16:00 97.9 94 18 90/51 (64) 100 01/10/20 12:00 102 01/10/20 09:00 Room Air Intake and Output 01/10/20 01/11/20 19:00 07:00 Intake Total 360 ml 720 ml Balance 360 ml 720 ml Intake Oral 360 ml 720 ml # Voids 3 3 Laboratory Tests 01/10/20 08:58: White Blood Count 9.1, Red Blood Count 2.15L, Hemoglobin 6.6*L, Hematocrit 23.6L , Mean Corpuscular Volume 110H, Mean Corpuscular Hemoglobin 30.5, Mean Corpuscular Hemoglobin Concent 27.8L, Red Cell Distribution Width 17.9H, Plate let Count 366, Mean Platelet Volume 6.0L, Neutrophils (%) (Auto) , Lymphocytes (%) (Auto) , Monocytes (%) (Auto) , Eosinophils (%) (Auto) , Basophils (%) (Auto) , Differential Total Cells Counted 100, Neutrophils % (Manual) 65, Lymphocytes % (Manual) 27, Monocytes % (Manual) 6, Eosinophils % (Manual) 2, Basophils % (Manual) 0, Band Neutrophils 0, Platelet Estimate Adequate, Platelet Morphology Normal, Polychromasia 1+, Hypochromasia 2+, Anisocytosis 1+, Macrocytosis 1+, Sodium Level 137, Potassium Level 3.7, Chloride Level 108H, Carbon Dioxide Level 23, Anion Gap 6, Blood Urea Nitrogen 1L, Creatinine 0.6, Estimat Glomerular Filtration Rate > 60, Glucose Level 107H, Calcium Level 7.7L, Total Bilirubin 5.2H, Direct Bilirubin 5.0H, Aspartate Amino Transf (AST/SGOT) 115H, Alanine Aminotransferase (ALT/SGPT) 33, Alkaline Phosphatase 157H, Pro-B-Type Natriuretic Peptide 110, Total Protein 5.3L, Albumin 1.2L, Globulin 4.1, Albumin/Globulin Ratio 0.3L Height (Feet): 5 Height (Inches): 6.00 Weight (Pounds): 96 Objective WDWN NAD clear breath sounds bilaterally without rhonchi or wheeze S1S2RR tachy without MRG NABS nontender no HSM no CCE jaundice Assessment/Plan Assessment/Plan: Impression: Jaundice- Urinary Tract Infection Vomiting Hypokalemia pancreatic pseudocyst Previous Gastritis Anemia, iron deficiency, thrombocytosis Plan: IV antibiotics IVF monitor HH Potassium supplementation Analgesia Monitor labs GI consultation Cardiology monitor for change Hepatitis serology await GI clearance impression, plan, and exam edited and reviewed in detail care discussed with Dada Fisher MD Jan 11, 2020 08:21
[2020-01-11] MEDS: Folic Acid 1 MG, Magnesium Sulfate 2,000 MG, Multivitamin - 12 Injection 10 ML in Sodiu... IV SCH (08:46)
[2020-01-11] MEDS: Thiamine 100mg in D5W 55ml IVPB SCH (08:47)
[2020-01-11] MEDS: Pantoprazole Inj IVP SCH (08:47)
--- NOTE | 2020-01-11 09:59 | General Progress Note ---
Subjective ROS Limited/Unobtainable: Yes Allergies: Coded Allergies: No Known Allergies (Unverified , 12/29/18) Objective Last 24 Hour Vital Signs Date Time Temp Pulse Resp B/P (MAP) Pulse Ox O2 Delivery O2 Flow Rate FiO2 01/11/20 08:00 98.1 70 19 103/61 (75) 98 01/11/20 04:00 81 01/11/20 04:00 98.1 82 18 88/63 (71) 98 01/11/20 00:00 98.2 90 18 91/51 (64) 99 01/11/20 00:00 95 01/10/20 21:00 Room Air 01/10/20 20:00 98.1 63 20 99/49 (66) 100 01/10/20 20:00 94 01/10/20 16:00 93 01/10/20 16:00 97.9 94 18 90/51 (64) 100 01/10/20 12:00 102 Intake and Output0 01/10/20 01/11/20 19:00 07:00 Intake Total 360 ml 720 ml Balance 360 ml 720 ml Intake Oral 360 ml 720 ml # Voids 3 3 Height (Feet): 5 Height (Inches): 6.00 Weight (Pounds): 96 General Appearance: alert EENT: normal ENT inspection Neck: supple Cardiovascular: normal rate Respiratory/Chest: lungs clear Abdomen: normal bowel sounds, non tender, soft Extremities: non-tender Assessment/Plan Assessment/Plan: macrocystic anemia folate def jaundice fatty liver ETOH abuse pancreatic pseudo cyst chronic pancreatitis pain control us and CT reviewed MRCP>>reviewed repeat labs pending s/p blood transfusion neg stool OB add Creon needs will Tolu Cottrell MD Jan 11, 2020 09:59
[2020-01-11] MEDS ORDERED: Creon DR 36,000 units cap ORAL PRN (10:00)
[2020-01-11 12:00] VITALS: BP 94/54
[2020-01-11] MEDS: Creon DR 36,000 units cap ORAL SCH ×2 (13:13→17:05)
[2020-01-11 16:00] VITALS: BP 90/56
[2020-01-11 20:00] VITALS: BP 97/65
[2020-01-11] MEDS: cefTRIAXone 1 GM in D5W 55 ML IVPB SCH (20:33)
[2020-01-12] VITALS: BP 100/63
[2020-01-12 04:00] VITALS: BP 94/63
[2020-01-12] MEDS: Creon DR 36,000 units cap ORAL SCH ×3 (07:00→17:43)
--- NOTE | 2020-01-12 07:55 | General Progress Note ---
Subjective ROS Limited/Unobtainable: Yes Allergies: Coded Allergies: No Known Allergies (Unverified , 12/29/18) Objective Last 24 Hour Vital Signs Date Time Temp Pulse Resp B/P (MAP) Pulse Ox O2 Delivery O2 Flow Rate FiO2 01/12/20 04:00 79 01/12/20 04:00 98.1 86 18 94/63 (73) 99 01/12/20 00:00 79 01/12/20 00:00 97.5 90 18 100/63 (75) 99 01/11/20 21:00 Room Air 01/11/20 20:00 80 01/11/20 20:00 97.7 91 16 97/65 (76) 95 01/11/20 16:00 97.8 80 18 90/56 (67) 100 01/11/20 16:00 83 01/11/20 12:00 98.0 84 18 94/54 (67) 100 01/11/20 12:00 84 01/11/20 09:00 Room Air 01/11/20 08:00 98.1 70 19 103/61 (75) 98 01/11/20 08:00 97 Intake and Output 01/11/20 01/12/20 19:00 07:00 Intake Total 740 ml 480 ml Balance 740 ml 480 ml Intake Oral 740 ml 480 ml # Voids 5 4 Height (Feet): 5 Height (Inches): 6.00 Weight (Pounds): 96 General Appearance: alert EENT: normal ENT inspection Neck: normal alignment Cardiovascular: normal rate Respiratory/Chest: decreased breath sounds Abdomen: hypoactive bowel sounds Extremities: non-tender Assessment/Plan Assessment/Plan: macrocystic anemia folate def jaundice fatty liver ETOH abuse pancreatic pseudo cyst chronic pancreatitis pain control us and CT reviewed MRCP>>reviewed repeat labs s/p blood transfusion neg stool OB Creon needs out patient tertiary center referral for possible EUS guided pseudocyst drainage will Tolu Cottrell MD Jan 12, 2020 07:55
[2020-01-12 08:00] VITALS: BP 101/68
[2020-01-12] MEDS: Thiamine 100mg in D5W 55ml IVPB SCH (08:32)
[2020-01-12] MEDS: Pantoprazole Inj IVP SCH (08:33)
[2020-01-12] MEDS: Folic Acid 1 MG, Magnesium Sulfate 2,000 MG, Multivitamin - 12 Injection 10 ML in Sodiu... IV SCH (08:33)
--- NOTE | 2020-01-12 09:29 | General Progress Note ---
Subjective Allergies: Coded Allergies: No Known Allergies (Unverified , 12/29/18) Subjective care noted reviewed and discussed taking PO cleared by GI Objective Last 24 Hour Vital Signs Date Time Temp Pulse Resp B/P (MAP) Pulse Ox O2 Delivery O2 Flow Rate FiO2 01/12/20 08:00 98.7 100 19 101/68 (79) 100 01/12/20 04:00 79 01/12/20 04:00 98.1 86 18 94/63 (73) 99 01/12/20 00:00 79 01/12/20 00:00 97.5 90 18 100/63 (75) 99 01/11/20 21:00 Room Air 01/11/20 20:00 80 01/11/20 20:00 97.7 91 16 97/65 (76) 95 01/11/20 16:00 97.8 80 18 90/56 (67) 100 01/11/20 16:00 83 01/11/20 12:00 98.0 84 18 94/54 (67) 100 01/11/20 12:00 84 Intake and Output 01/11/20 01/12/20 19:00 07:00 Intake Total 740 ml 480 ml Balance 740 ml 480 ml Intake Oral 740 ml 480 ml # Voids 5 4 Height (Feet): 5 Height (Inches): 6.00 Weight (Pounds): 96 Objective WDWN NAD clear breath sounds bilaterally without rhonchi or wheeze S1S2RR tachy without MRG NABS nontender no HSM no CCE jaundice Assessment/Plan Assessment/Plan: Impression: Jaundice- Urinary Tract Infection Vomiting Hypokalemia pancreatic pseudocyst Previous Gastritis Anemia, iron deficiency, thrombocytosis Plan: dc antibiotics dc IVF monitor HH dc home pending CBC outpatient follow up impression, plan, and exam edited and reviewed in detail care discussed with Dada Fisher MD Jan 12, 2020 09:29
[2020-01-12 11:04] LABS: BASOPHILS % (AUTO) 1.7 % (0.0-2.0); HEMATOCRIT 33.2 % (37.0-47.0); HEMOGLOBIN 9.8 G/DL (12.0-16.0); LYMPHOCYTES % (AUTO) 21.5 % (20.0-45.0); MEAN CORPUSCULAR VOLUME 102 FL (80-99); MONOCYTES % (AUTO) 10.2 % (1.0-10.0); NEUTROPHILS % (AUTO) 64.6 % (45.0-75.0); PLATELET COUNT 461 K/UL (150-450); RED BLOOD COUNT 3.25 M/UL (4.20-5.40); WHITE BLOOD COUNT 8.7 K/UL (4.8-10.8)
[2020-01-12] MEDS: Bactrim-DS 1 tab ORAL SCH ×2 (11:09→20:45)
[2020-01-12 12:00] VITALS: BP 104/66
[2020-01-12 16:00] VITALS: BP 106/77
[2020-01-12 20:00] VITALS: BP 102/69
[2020-01-13] VITALS: BP 98/59
[2020-01-13 04:00] VITALS: BP 95/59
[2020-01-13] MEDS: Creon DR 36,000 units cap ORAL SCH ×2 (07:13→12:21)
[2020-01-13 08:00] VITALS: BP 94/55
[2020-01-13] MEDS: Folic Acid 1 MG, Magnesium Sulfate 2,000 MG, Multivitamin - 12 Injection 10 ML in Sodiu... IV SCH (08:30)
[2020-01-13] MEDS: Thiamine 100mg in D5W 55ml IVPB SCH (08:30)
[2020-01-13] MEDS: Pantoprazole Inj IVP SCH (08:31)
[2020-01-13] MEDS: Bactrim-DS 1 tab ORAL SCH (08:32)
[2020-01-13] MEDS ORDERED: BACTRIM DS TAB1 EAC1 ORAL ×2 (10:16→10:17)
--- NOTE | 2020-01-13 10:55 | General Progress Note ---
Subjective Allergies: Coded Allergies: No Known Allergies (Unverified , 12/29/18) Subjective care noted reviewed and discussed taking PO cleared by GI Objective Last 24 Hour Vital Signs Date Time Temp Pulse Resp B/P (MAP) Pulse Ox O2 Delivery O2 Flow Rate FiO2 01/13/20 08:00 98.1 83 18 94/55 (68) 99 01/13/20 07:32 85 01/13/20 04:00 76 01/13/20 04:00 97.7 73 16 95/59 (71) 100 01/13/20 00:00 98.5 68 20 98/59 (72) 95 01/13/20 00:00 88 01/12/20 21:00 Room Air 01/12/20 20:00 94 01/12/20 20:00 97.9 72 20 102/69 (80) 100 01/12/20 16:00 96.8 68 19 106/77 (87) 100 01/12/20 15:21 85 01/12/20 12:00 98.1 80 19 104/66 (79) 100 01/12/20 11:28 88 Intake and Output 01/12/20 01/13/20 19:00 07:00 Intake Total 1361 ml 350 ml Balance 1361 ml 350 ml Intake Oral 180 ml 350 ml IV Total 1181 ml # Voids 3 Height (Feet): 5 Height (Inches): 6.00 Weight (Pounds): 96 Objective WDWN NAD clear breath sounds bilaterally without rhonchi or wheeze S1S2RR tachy without MRG NABS nontender no HSM no CCE jaundice Assessment/Plan Assessment/Plan: Impression: Jaundice- Urinary Tract Infection Vomiting Hypokalemia pancreatic pseudocyst Previous Gastritis Anemia, iron deficiency, thrombocytosis Plan: dc antibiotics dc IVF improved HH dc home today outpatient follow up impression, plan, and exam edited and reviewed in detail care discussed with Dada Fisher MD Jan 13, 2020 10:55
[2020-01-13 11:59] VITALS: BP 97/58
--- NOTE | 2020-01-13 13:22 | General Progress Note ---
Subjective ROS Limited/Unobtainable: Yes Allergies: Coded Allergies: No Known Allergies (Unverified , 12/29/18) Objective Last 24 Hour Vital Signs Date Time Temp Pulse Resp B/P (MAP) Pulse Ox O2 Delivery O2 Flow Rate FiO2 01/13/20 11:59 98.2 82 19 97/58 (71) 99 01/13/20 11:37 84 01/13/20 09:00 Room Air 01/13/20 08:00 98.1 83 18 94/55 (68) 99 01/13/20 07:32 85 01/13/20 04:00 76 01/13/20 04:00 97.7 73 16 95/59 (71) 100 01/13/20 00:00 98.5 68 20 98/59 (72) 95 01/13/20 00:00 88 01/12/20 21:00 Room Air 01/12/20 20:00 94 01/12/20 20:00 97.9 72 20 102/69 (80) 100 01/12/20 16:00 96.8 68 19 106/77 (87) 100 01/12/20 15:21 85 Intake and Output 01/12/20 01/13/20 19:00 07:00 Intake Total 1361 ml 350 ml Balance 1361 ml 350 ml Intake Oral 180 ml 350 ml IV Total 1181 ml # Voids 3 Height (Feet): 5 Height (Inches): 6.00 Weight (Pounds): 96 General Appearance: no apparent distress EENT: normal ENT inspection Neck: normal inspection Cardiovascular: normal rate Respiratory/Chest: decreased breath sounds Abdomen: hypoactive bowel sounds Extremities: non-tender Assessment/Plan Assessment/Plan: macrocystic anemia folate def jaundice fatty liver ETOH abuse pancreatic pseudo cyst chronic pancreatitis pain control us and CT reviewed MRCP>>reviewed repeat labs s/p blood transfusion neg stool OB Creon needs out patient tertiary center referral for possible EUS guided pseudocyst drainage will Tolu Cottrell MD Jan 13, 2020 13:22
[2020-01-13] MEDS ORDERED: Tubing Blood Filter IV ONE (13:46)
[2020-01-13] MEDS ORDERED: Tubing IV Secondary IV ONE (13:46)
[2020-01-13] MEDS ORDERED: NS 275ml ONE (13:46)
[2020-01-13] MEDS ORDERED: NS 500ML ONE (13:46)
--- NOTE | 2020-01-17 14:17 | Discharge Summary ---
Discharge Summary Discharge Summary _ DATE OF ADMISSION: 01/07/2020 DATE OF DISCHARGE: [] 01/13/2020 DISCHARGED BY: Dr. Bliss REASON FOR ADMISSION: 29 years old female with past medical history of pancreatitis , secondary to alcohol intake , presented to to emergency department with several days of rapid heartbeat . Patient appears jaundiced with scleral icterus . She reported several days of rapid heartbeat and feeling weak. She denied abdominal pain. She reported nausea and nonbloody vomiting. No diarrhea or constipation. She also reported that she was no longer drinking hard liquor, but continued drinking wine and beer. She also reported smoking tobacco and marijuana on a daily basis. She denied pleuritic chest pain. No headache or dizziness, no shortness of breath. Upon evaluation she was tachycardic with heart rate 140 , no fever . Pulse oximetry was stable on room air. Troponin negative . EKG revealed sinus tachycardia no acute ischemic changes. Laboratory work-up revealed leukocytosis with WBC 12.9 , hemoglobin 8.9, hemat ocrit 30, platelet count 726. INR 1.3. Total bili 8.8, direct bili 7.6. AST 162, ALT 45. Albumin 1.9. Urinalysis revealed pyuria and moderate bacteria, +3 protein ,+3 bilirubin. Urine test was negative. CT of the abdomen and pelvis revealed 15 x 15 x 21 mm hypodense lesion of the left adrenal gland versus tail of the pancreas , new from the prior study ; possibly pancreatic pseudocyst, rather than adrenal adenoma. Smaller cystic lesions of pancreatic body and tail were nonspecific , remnants of prior pancreatitis. In emergency department patient received fluids , Pepcid , antiemetic ; patient also received empiric antibiotic. Patient started on potassium replacement. Antiemetic provided . Patient subsequently admitted to telemetry floor for further management CONSULTANTS: web analytics developer GI specialist Dr. Adames [facility]: Patient admitted to telemetry floor . Patient was provided with IV hydration. Potassium was further replaced. Empiric antibiotic for UTI provided. Pain management was addressed . Symptomatic treatment provided. GI prophylaxis provided. Patient was jaundiced with elevated biliruibn and LFT, but CT scan of the abdomen revealed no obstruction. LFT and bilirubin were closely monitored. Urine culture revealed E. coli. Rapid COVID-19 was negative. Mild leukocytosis resolved. Patient completed treatment for UTI while in the hospital. GI specialist seen and evaluated patient. Patient undergone abdominal ultrasound, which revealed hepatic steatosis. Suspected pancreatic pseudocyst from CT scan , was not visualized. MRI of the abdomen revealed cystic mass adjacent to pancreatic tail , probably pancreatic fluid collection/pseudocyst , less likely large IPMN. Irregular beaded and strictured appearance of the pancreatic duct in the pancreatic body and tail , can be seen as a sequela of chronic pancreatitis. Apparent severe focal stenosis of the distal common hepatic duct likely artifactual , given lack of upstream intra or extrahepatic biliary duct dilatation. Hepatomegaly with steatosis. Total bilirubin trended down to 5.2 , direct bilirubin down to 5.0. AST down to 115 , ALT stable Hepatitis panel negative. Hemoglobin and hematocrit were closely monitored with goal to keep hemoglobin above 7. Patient received 2 units of packed red blood cells while in the hospital. Prior to discharge hemoglobin 8 hematocrit 33.2. Stool for occult blood was negative. Platelet count down to 461. Patient started on Creon with meals. GI specialist recommended outpatient tertiary center referral for EUS guided pseudocyst drainage. Pulse oximetry remained stable on room air at all times. Venous duplex bilateral lower extremity revealed no evidence of acute DVT. Patient was counseled on smoking cessation . fuel technician recommendations implemented in plan of care. Patient was monitored on telemetry. With IV hydration, heart rate stabilized, No need for antiarrhythmic medications as per web analytics developer. IV fluids and antibiotic discontinued prior to discharge. Patient clinically stabilized and was ready for discharge FINAL DIAGNOSES: UTI, s/p treatment Hypokalemia -replaced Probably pancreatic pseudocyst Chronic pancreatitis, ETOH abuse Fatty liver Anemia Folate deficiency Thrombocytosis Jaundice with elevated LFT and bili ( no obstruction on CT abdomen) Dehydration Severe protein calorie malnutrition DISCHARGE MEDICATIONS: See Medication Reconciliation list. DISCHARGE INSTRUCTIONS: Patient was discharged home. Follow-up with a primary care provider in 1 week. I have been assigned to dictate discharge summary for this account. I was not involved in the patient's management. Niki Greene NP Jan 17, 2020 14:17
== END 2020-01-13 13:47 | disposition home or self-care (01) | DRG 463 ==
LOC: EMR 19:15 → 2E 21:13 → EDBEDREQ 21:31
PROC: 30233N1 Transfusion of Nonautologous Red Blood Cells into Peripheral Vein, Percutaneous Approach (ICD-10-PCS; principal; 2020-01-10)
DX: N39.0 Urinary tract infection, site not specified (principal); E43 Unspecified severe protein-calorie malnutrition; K86.3 Pseudocyst of pancreas; K76.0 Fatty (change of) liver, not elsewhere classified; D50.9 Iron deficiency anemia, unspecified; E87.6 Hypokalemia; E86.1 Hypovolemia; E86.0 Dehydration; R00.0 Tachycardia, unspecified; E53.8 Deficiency of other specified B group vitamins; D47.3 Essential (hemorrhagic) thrombocythemia; K86.1 Other chronic pancreatitis; F10.10 Alcohol abuse, uncomplicated
CPT/HCPCS: 36415; 71045; 74177; 74181; 76700; 80048; 80053; 80307; 81003; 81025; 82248; 82270; 82728; 82746; 83540; 83690; 83735; 83880; 84484; 85007; 85025; 85610; 85730; 86705; 86709; 86803; 86850; 86900; 86901; 86920; 87081; 87086; 87181; 87340; 93005; 93970; 96361; 96365; 96367; 96375; 99285; G0480; J2405; J7030; J8499; U0002